=== PATIENT | female | born 1950 | race Caucasian/White ===

== ENCOUNTER 2023-09-23 14:03 | Outpatient (OUT) | payer MEDICARE, SELFPAY ==
--- NOTE | 2023-09-23 | XR_ITS ---
The [address] [address] Patient Name: LES CORTEZ MRN: [id number] date: 1950 Sex: F Assigned Patient Location: Current Patient Location: Accession/Order Number: [id number] Exam Date: 09/23/2023 14:50 Report Date: 09/25/2023 06:39 At the request of: ALO HOPPER Procedure: XR ankle LT min 3V PROCEDURE: XR ankle LT min 3V, XR foot LT min 3V HISTORY: LEFT ANKLE PAIN , left foot pain, left foot drop COMPARISON: None. FINDINGS: BONES:Small corticated ossification dorsal to the tarsal-metatarsal joints on the lateral view favoring sequela of remote injury. No acute fracture, dislocation, bone lesion. Uniform spacing of the ankle joint. SOFT TISSUES:Soft tissue swelling overlying distal dorsal foot. EFFUSION:None visible. OTHER: Negative. XR/XR ankle LT min 3V IMPRESSION: 1. No acute bone abnormality. 2. Mild flattening of plantar arch and minimal degenerative joint disease. Electronically authenticated by: TRAVON GOMEZ Date: 09/25/2023 06:39
--- NOTE | 2023-09-23 | XR_ITS ---
The [address] [address] Patient Name: LES CORTEZ MRN: [id number] date: 1950 Sex: F Assigned Patient Location: Current Patient Location: Accession/Order Number: [id number] Exam Date: 09/23/2023 14:50 Report Date: 09/25/2023 06:39 At the request of: ALO HOPPER Procedure: XR foot LT min 3V PROCEDURE: XR ankle LT min 3V, XR foot LT min 3V HISTORY: LEFT ANKLE PAIN , left foot pain, left foot drop COMPARISON: None. FINDINGS: BONES:Small corticated ossification dorsal to the tarsal-metatarsal joints on the lateral view favoring sequela of remote injury. No acute fracture, dislocation, bone lesion. Uniform spacing of the ankle joint. SOFT TISSUES:Soft tissue swelling overlying distal dorsal foot. EFFUSION:None visible. OTHER: Negative. XR/XR foot LT min 3V IMPRESSION: 1. No acute bone abnormality. 2. Mild flattening of plantar arch and minimal degenerative joint disease. Electronically authenticated by: TRAVON GOMEZ Date: 09/25/2023 06:39
== END 2023-09-23 14:04 | disposition home or self-care (01) ==
LOC: EC 14:03
PROVIDERS: Visit Provider Podiatrist Foot & Ankle Surgery
DX: M25.572 Pain in left ankle and joints of left foot (principal); M17.12 Unilateral primary osteoarthritis, left knee
CPT/HCPCS: 73610; 73630

== ENCOUNTER 2024-03-01 14:31 | Outpatient (OUT) | payer MEDICARE, SELFPAY ==
--- NOTE | 2024-03-01 | XR_ITS ---
The [address] [address] Patient Name: LES CORTEZ MRN: [id number] date: 1950 Sex: F Assigned Patient Location: Current Patient Location: Accession/Order Number: [id number] Exam Date: 03/01/2024 14:31 Report Date: 03/01/2024 15:05 At the request of: JANINE CARRERA Procedure: XR knee JENNIFER 4V EXAMINATION: XR knee JENNIFER 4V HISTORY: RIGHT KNEE PAIN COMPARISON: No relevant comparison available. FINDINGS: RIGHT FINDINGS: BONES: 5 mm bone fragment identified along the proximal, on the lateral projection suspicious for a nondisplaced fracture. No dislocation. Mild to moderate tricompartmental osteoarthropathy with joint space narrowing marginal osteophyte formation SOFT TISSUES: Negative. No visible soft tissue swelling. OTHER: Call result initiated through operations. LEFT FINDINGS: BONES: No acute fracture or dislocation. Severe tricompartmental osteoarthropathy with moderate narrowing of the medial joint space and marginal osteophyte formation. Extensive heterotopic ossification noted along the quadriceps insertion of the patella SOFT TISSUES: Negative. No visible soft tissue swelling. OTHER: Negative. XR/XR knee JENNIFER 4V IMPRESSION: RIGHT CONCLUSION: Suspected nondisplaced 5 mm fracture proximal patella LEFT CONCLUSION: Severe osteoarthritis Electronically authenticated by: CAROLYN SHERIDAN Date: 03/01/2024 15:05
--- OUTSIDE RECORDS SUMMARY | 2024-03-01 14:36 | XMS_ITS | CCD ---
Author Organization [facility] Care Team Providers Care Outpatient Surgery Rn Name Role Phone [facility] Primary Care Provider [facility] Referring Provider [phone] Self, Referral Attending Provider Unavailable [facility] Primary Care Provider Malek, Hiral Referring Provider Mast, DO Michael Attending Provider [phone] Jin, DO Rene Gomez Attending Provider [phone] [facility], Services Primary Care Provider Jin, Rene A Attending Provider Malek, DO Hiral Referring Provider Malek, Hiral Referring Unavailable Brandejahcki, Rene A Admitting Unavailable BranieckiRene A Attending Unavailable [facility], Services Primary Care Unavaila ble Malek, Hiral Referring Unavailable Braniecki, Rene A Admitting Unavailable Braniecki Rene A Attending Unavailable [facility], Services Primary Care Unavaila ble Mast, Michael Admitting Unavailable Mast, Michael Attending Unavailable [facility], Services Primary Care Unavaila ble Malek, Hiral Referring Unavailable Igor Ly Primary Care Physician Igor Ly MD Primary Care Provider CAROLYN BROWNE Attending Unavailable DANILO RICHARD Attending Unavailable DANILO RICHARD Referring Unavailable DANILO RICHARD Attending Unavailable DANILO RICHARD Attending Unavailable DANILO RICHARD Attending Unavailable CAROLYN BROWNE Attending Unavailable CAROLYN BROWNE Referring Unavailable POCCAROLYN CORONA Referring Unavailable DANILO RICHARD Referring Unavailable Igor Ly MD Primary Care Provider DO Blayne Mackenzie Admitting UnavailHIRAL Madden Referring Unavailable Blayne Mackenzie Attending Unavailable NONE, XXXX Referring Unavailable JAZZY Hurtado Maribel Admitting Unavailabl e Hurtado, Maribel Attending Unavailable Blayne Mackenzie Attending Unavailable Blayne Mackenzie Referring Unavailable Link, DO Igor Flynn Attending Unavailable KRISTAN HEWITT Attending Unavailabl e Link, DO Igor Flynn Attending Unavailable KRISTAN HEWITT Attending Unavailabl e Link, DO Igor Flynn Attending Unavailable Link, DO Igor Flynn Attending Unavailable Blayne Mackenzie Attending Unavailable Blayne Mackenzie Referring Unavailable Hurtado, Maribel Admitting Unavailable Hurtado, Maribel Attending Unavailable Donovan Ward Attending Unavailable Donovan Ward Attending Unavailable Link, DO Igor Flynn Attending Unavailable Link, DO Igor C Attending Unavailable Link, DO Igor C Attending Unavailable Link, DO Igor C Attending Unavailable Link, DO Igor C Attending Unavailable Link, DO Igor C Attending Unavailable Link, DO Igor C Attending Unavailable Link, DO Igor C Attending Unavailable Link, DO Igor C Attending Unavailable Hurtado, Maribel Admitting Unavailable Hurtado, Maribel Attending Unavailable Link, DO Igor Flynn Referring Unavailable Blayne Mackenzie Admitting Unavailable Blayne Mackenzie Attending Unavailable NONE, XXXX Referring Unavailable Link, DO Igor C Referring Unavailable Hurtado, Maribel Admitting Unavailable Hurtado, Amribel Attending Unavailable Allergies Allergy Classification Reported Allergen(s) Allergy Type Date of Onset Reaction(s) Facility (19 sources) pregabalin; Translations: [pregabalin] Drug Allergy swelling [facility] (15 sources) Anabolic steroid (substance); Translations: [anabolic steroids] Drug intolerance [facility] [place] Comment on above: Patient has Occular HTN and was advised by provider to not take unless no other options (11 sources) Corticosteroids and derivatives Drug Intolerance 07-13-19 23 [facility] (1 source) anabolic steroids; Translations: [anabolic steroids] Propensity to adverse reactions (disorder) [facility] Repository Medications Current Medications Medication Drug Class(es) Dates Sig (Normalized) Sig (Original) Tylenol (5 sources) Start: 12-19-2023 Tylenol PRN as needed for pain, Refills(s) 0 Start Date: 12/19/23 Status: Ordered acetaminophen 325 mg / HYDROcodone bitartrate 5 mg oral tablet (2 sources) Opioid Agonist Start: 11-20-2023 End: 11-23-2023 [place] 325 mg-5 mg oral tablet 1 tab(s), Oral, q6hr for pain for 3 day(s), 12 tab(s), Refill(s) 0, [facility]/pharmacy #[id number], 167.6, cm, 11/20/23 13:19:00 EDT, Height/Length Dosing, 107.4, kg, 11/20/23 13:19:00 EDT, Weight Dosing Start Date: 11/20/23 Stop Date: 11/23/23 Status: Ordered acetaminophen 325 mg / oxyCODONE hydrochloride 5 mg oral tablet (7 sources) Opioid Agonist Start: 01-02-2024 acetaminophen-oxyc odone 325 mg-5 mg Tab 1 tab(s), Oral, BID for pain, 60 tab(s), [facility](s) 0, [id number], cm, 12/19/23 11:10:00 EDT, Height/Length Dosing, 105, kg, 12/19/23 11:10:00 EDT, Weight Dosing Start Date: 01/02/24 Status: Ordered Start: 12-08-2023 acetaminophen- oxycodone 325 mg-5 mg Tab 1 tab(s), Oral, BID for pain, 60 tab(s), [facility]ill(s) 0, [id number], cm, 12/08/23 11:52:00 EDT, Height/Length Dosing, 108.6, kg, 12/08/23 11:52:00 EDT, Weight Dosing Start Date: 12/08/23 Status: Ordered Start: 11-24-2023 acetaminophen- oxycodone 325 mg-5 mg Tab 1 tab(s), Oral, BID for pain, 28 tab(s), Refill(s) 0, [facility]/pharmacy #[id number], 168, cm, 11/24/23 14:05:00 EDT, Height/Length Dosing, 107.6, kg, 11/24/23 14:05:00 EDT, Weight Dosing Start Date: 11/24/23 Status: Ordered atorvastatin 40 mg oral tablet (20 sources) HMG-CoA Reductase Inhibitor Start: 10-07-2014 take 1 tablet by mouth once daily atorvastatin 40 mg Tab 40 mg = 1 tab(s), Oral, Daily, # 90 tab(s), Refills(s) 3, Pharmacy: [facility], 168, cm, 05/27/23 11:56:00 EDT, Height/Length Dosing, 108.6, kg, 05/27/23 11:56:00 EDT, Weight Dosing Start Date: 05/27/23 Status: Ordered baclofen 5 mg oral tablet (6 sources) gamma-Aminobutyri c Acid-ergic Agonist Start: 05-05-2023 take 1 tablet by mouth three times daily as needed for pain baclofen 5 mg oral tablet 5 mg = 1 tab(s), Oral, TID, PRN Pain, # 30 tab(s), Refills(s) 0, [id number] 168, cm, 05/05/23 12:58:00 EDT, Height/Length Dosing, 108.6, kg, 04/02/23 10:30:00 EST, Weight Dosing Start Date: 05/05/23 Status: Ordered Cholecalciferol (11 sources) Vitamin D Cholecalciferol (D3 ADULT PO) Take by mouth Active diclofenac potassium 50 mg oral tablet (7 sources) Nonsteroidal Anti-inflammatory Drug Start: 12-08-2023 take 1 tablet by mouth twice daily as needed for arthritis diclofenac potassium 50 mg oral tablet 50 mg = 1 tab(s), Oral, BID, PRN for arthritis, Do not take with other anti-inflammatories , # 60 tab(s), Refills(s) 2, [id number] 168, cm, 12/08/23 11:52:00 EDT, Height/Length Dosing, 108.6, kg, 12/08/23 11:52:00 EDT, Weight Dosing Start Date: 12/08/23 Status: Ordered dorzolamide 20 mg/ml / timolol 5 mg/ml ophthalmic solution (20 sources) Carbonic Anhydrase Inhibitor, beta-Adrenergic Tressa Start: 04-02-2023 dorzolamide-timolol Opth 2%-0.5% Zeynep 1 drop(s), Eye-Both, Refill(s) 0 Start Date: 04/02/23 Status: Ordered Start: 07-02-2022 End: 11-18-2023 take 1 drop(s) into the eye(s) in the morning dorzolamide-timolol (Cosopt) 22.3-6.8 MG/ML ophthalmic solution Administer 1 drop into both eyes in the morning and 1 drop before bedtime. 07/02/2022 11/18/2023 Discontinued (Med list cleanup) furosemide 20 mg oral tablet (1 source) Loop Diuretic Start: 07-02-2023 take 1 tablet by mouth once daily Lasix 20 mg Tab 20 mg = 1 tab(s), Oral, Daily, i tab po qd x 5 days, # 5 tab(s), Refills(s) 0, [id number] 168, cm, 07/02/23 8:22:00 EDT, Height/Length Dosing, 109.4, kg, 07/02/23 8:40:00 EDT, Weight Dosing Start Date: 07/02/23 Status: Ordered gabapentin 300 mg oral capsule (20 sources) Anti-epileptic Agent Start: 02-24-2024 take 2 capsules by mouth once daily at bedtime gabapentin 300 mg Cap 600 mg = 2 cap(s), Oral, Once a day (at bedtime), # 180 EA, Refills(s) 0, [id number] 168, cm, 02/24/24 8:35:00 EST, Height/Length Dosing, 107, kg, 02/24/24 8:35:00 EST, Weight Dosing Start Date: 02/24/24 Status: Ordered Start: 06-24-2023 take 2 capsules by m outh once daily at bedtime gabapentin 300 mg Cap 600 mg = 2 cap(s), Oral, Once a day (at bedtime), # 180 EA, Refills(s) 3, Pharmacy: [facility], 168, cm, 05/27/23 11:56:00 EDT, Height/Length Dosing, 108.6, kg, 05/27/23 11:56:00 EDT, Weight Dosing Start Date: 06/24/23 Status: Ordered Start: 06-24-2023 gabapentin (Ne urontin) 300 MG capsule Take 300 mg by mouth 06/24/2023 Active Start: 06-24-2023 take 1 capsule by mo uth twice daily gabapentin 300 mg Cap 300 mg = 1 cap(s), Oral, BID, # 180 EA, Refills(s) 3, Pharmacy: [facility], 168, cm, 05/27/23 11:56:00 EDT, Height/Length Dosing, 108.6, kg, 05/27/23 11:56:00 EDT, Weight Dosing Start Date: 06/24/23 Status: Ordered Start: 04-23-2023 take 1 capsule by mo [facility] three times daily gabapentin 300 mg Cap 300 mg = 1 cap(s), Oral, TID, # 90 cap(s), Refills(s) 1, Pharmacy: [facility], 168, cm, 04/02/23 10:30:00 EST, Height/Length Dosing, 108.6, kg, 04/02/23 10:30:00 EST, Weight Dosing Start Date: 04/23/23 Status: Ordered Start: 04-23-2023 take 1 capsule by [facility] once daily at bedtime gabapentin 300 mg Cap 300 mg = 1 cap(s), Oral, Once a day (at bedtime), # 90 cap(s), Refills(s) 1, Pharmacy: [facility], 168, cm, 04/02/23 10:30:00 EST, Height/Length Dosing, 108.6, kg, 04/02/23 10:30:00 EST, Weight Dosing Start Date: 04/23/23 Status: Ordered Start: 04-02-2023 End: 05-02-2023 take 3 tablets by mouth at bedtime gabapentin 100 mg Cap 300 mg = 3 cap(s), Oral, Bedtime, take 1 tablet for the first 3 days, then take 2 tablets at night for 3 more days, then take 3 tablets at bedtime ongoing., X 30 day(s), # 90 cap(s), Refills(s) 0, Pharmacy: [facility], 168, cm, 04/02/23 10:30:00 EST, Height/Length Dosing, 108.6, kg, 04/02/23 10:30:00 EST, Weight Dosing Start Date: 04/02/23 Stop Date: 05/02/23 Status: Ordered hydroCHLOROthiazide 25 mg / lisinopril 20 mg oral tablet (20 sources) Thiazide Diuretic, Angiotensin Converting Enzyme Inhibitor Start: 05-27-2023 take 2 tablets by mouth once daily hydrochlorothiazide-lisinopril 25 mg-20 mg Tab 2 tab(s), Oral, Daily, 180 tab(s), Refill(s) 3, [facility], 168, cm, 05/27/23 11:56:00 EDT, Height/Length Dosing, 108.6, kg, 05/27/23 11:56:00 EDT, Weight Dosing Start Date: 05/27/23 Status: Ordered Start: 04-02-2023 take 2 tablets by mouth once daily hydrochlorothiazide-lisinopril 25 mg-20 mg Tab 2 tab(s), Oral, Daily, Refill(s) 0 Start Date: 04/02/23 Status: Ordered take 1 tablet by david th in the morning lisinopril-hydroCHLOROthiazide 20-12.5 M G tablet Take 1 tablet by mouth in the morning. Active latanoprost (20 sources) Prostaglandin Analog Start: 04-02-[address] ophthalmic Eye-Both, Refill(s) 0 Start Date: 04/02/23 Status: Ordered latanoprost (Xal atan) 0.005 % ophthalmic solution 1 (one) time each day at the same time Active meloxicam 15 mg oral tablet (20 sources) Nonsteroidal Anti-inflammatory Drug Start: 02-24-2024 take 1 tablet by mouth once daily meloxicam 15 mg Tab 15 mg = 1 tab(s), Oral, Daily, Refills(s) 0 Start Date: 02/24/24 Status: Ordered Start: 05-27-2023 meloxicam (Mob ic) 15 MG tablet Take 15 mg by mouth 05/27/2023 Active Start: 05-12-2023 take 1 tablet by david th once daily meloxicam 15 mg Tab 15 mg = 1 tab(s), Oral, Daily, # 30 tab(s), Refills(s) 1, Pharmacy: [facility]/pharmacy #[id number], 168, cm, 05/12/23 8:10:00 EDT, Height/Length Dosing, 110.5, kg, 05/12/23 8:10:00 EDT, Weight Dosing Start Date: 05/12/23 Status: Ordered metoprolol tartrate 25 mg oral tablet (20 sources) beta-Adrenergic Tressa Start: 05-27-2023 take 1 tablet by mouth twice daily Metoprolol tartrate 25 mg Tab 25 mg = 1 tab(s), Oral, BID, # 180 tab(s), Refills(s) 3, Pharmacy: [facility], 168, cm, 05/27/23 11:56:00 EDT, Height/Length Dosing, 108.6, kg, 05/27/23 11:56:00 EDT, Weight Dosing Start Date: 05/27/23 Status: Ordered Start: 10-07-2014 take 1 tablet by david th once daily Metoprolol tartrate 25 mg Tab 25 mg = 1 tab(s), Oral, Daily, # 30 tab(s), Refills(s) 0, High blood pressure Start Date: 10/07/14 Status: Ordered Start: 10-07-2014 take 1 tablet by david th twice daily Metoprolol tartrate 25 mg Tab 25 mg = 1 tab(s), Oral, BID, # 30 tab(s), Refills(s) 0, High blood pressure Start Date: 10/07/14 Status: Ordered naproxen sodium 220 mg oral tablet (20 sources) Nonsteroidal Anti-inflammatory Drug Start: 11-21-2023 take 220 mg by mouth once Aleve 220 mg, Oral, Once, Refills(s) 0 Start Date: 11/21/23 Status: Ordered Start: 02-09-2017 naproxen (Napr osyn) 500 MG tablet 01/01/2023 Active PTTD ankle brace (19 sources) Start: 04-02-2023 PTTD ankle bra ce PTTD ankle brace, See Instructions, 1 EA, 0, one brace, Supply, 168, cm, 04/02/23 10:30:00 EST, Height/Length Dosing, 108.6, kg, 04/02/23 10:30:00 EST, Weight Dosing Start Date: 04/02/23 Status: Ordered Super B Complex oral tablet (18 sources) Start: 04-02-2023 Super B Comple x oral tablet Refill(s) 0, Oral, 0 Refill(s) Start Date: 04/02/23 Status: Ordered Start: 04-02-2023 Super B Comple x oral tablet Refill(s) 0 Start Date: 04/02/23 Status: Ordered 12 hr timolol 5 mg/ml ophthalmic solution (12 sources) beta-Adrenergic Tressa Start: 11-21-2023 timolo l Opth 0.5% Zeynep 15 mL 1 drop(s), BID, Refill(s) 0 Start Date: 11/21/23 Status: Ordered timolol (Timopti c) 0.5 % ophthalmic solution 1 (one) time each day at the same time Active timolol Opth 0.5% Zeynep 15 mL (6 sources) Start: 11-21-2023 timolol Opth 0 .5% Zeynep 15 mL 1 drop(s), BID, Refill(s) 0 Start Date: 11/21/23 Status: Ordered traMADol hydrochloride 50 mg oral tablet (20 sources) Opioid Agonist Start: 02-02-2024 take 1 tablet by mouth every twelve hours as needed for pain traMADOL 50 mg Tab 50 mg = 1 tab(s), Oral, q12hr, PRN for pain, # 60 tab(s), Refills(s) 0, Pharmacy: [facility]/pharmacy #[id number], 168, cm, 02/02/24 13:57:00 EST, Height/Length Dosing, 109.3, kg, 02/02/24 13:57:00 EST, Weight Dosing Start Date: 02/02/24 Status: Ordered Start: 05-27-2023 take 1 tablet by david th once daily as needed for pain traMADOL 50 mg Tab 50 mg = 1 tab(s), Oral, Daily, PRN for pain, At bedtime, # 90 tab(s), Refills(s) 0, Pharmacy: [facility]/pharmacy #[id number], 168, cm, 11/13/23 10:07:00 EDT, Height/Length Dosing, 107.4, kg, 11/13/23 10:07:00 EDT, Weight Dosing Start Date: 11/13/23 Status: Ordered Start: 05-08-2023 End: 05-11-2023 take 1 tablet by mouth every six hours Ultram 50 mg Tab 50 mg = 1 tab(s), Oral, q6hr, X 3 day(s), # 12 tab(s), Refills(s) 0, Pharmacy: [facility]/pharmacy #[id number], 168, cm, 05/08/23 13:35:00 EDT, Height/Length Dosing, 108.6, kg, 05/08/23 13:35:00 EDT, Weight Dosing Start Date: 05/08/23 Stop Date: 05/11/23 Status: Ordered traMADol (Ultram ) 50 MG tablet Take by mouth Active Vitamin D3 2000 intl units (19 sources) Start: 10-07-2014 Vitamin D3 200 0 intl units 2,000 International_Unit, Oral, Daily, Refills(s) 0, Prophylaxis Start Date: 10/07/14 Status: Ordered Completed/Discontinued Medications Medication Drug Class(es) Dates Sig (Normalized) Sig (Original) Handicap Placard (12 sources) Start: Handicap Placard Handicap Placard, See Instructions, 1 EA, 0, Expires 08/2028, Supply Start Date: 08/19/23 Status: Ordered 1 ml methylPREDNISolone acetate 40 mg/ml injection (8 sources) Corticosteroid Start: End: methylPREDNISolone acetate (DEPO-Medrol) injection 40 mg Start: 10-21-2023 End: 10-21-2023 40 mg, Intra-articular, Once PRN Procedure, Starting on Fri10/21/23 at 0947, For 1 dose Start: 10-14-2023 End: 10-14-2023 methylPREDNISolone acetate ( DEPO-Medrol) injection 40 mg Start: 10-14-2023 End: 10-14-2023 40 mg, Intra-articular, Once PRN Procedure, Starting on Fri10/14/23 at 1254, For 1 dose vitamin b12 0.1 mg oral tablet (10 sources) Vitamin B12 End: 11-18-2023 take 1 tablet by mouth once daily cyanocobalamin (Vitamin B-12) 100 MCG tablet Take 100 mcg by mouth Daily 11/18/2023 Discontinued (Med list cleanup) Problems Active Problems Problem Classification Problem Date Documented Date Episodic/Chronic Disorders of lipid metabolism (19 sources) Other hyperlipidemia; Translations: [Hyperlipidemia] Onset: 08-22-2022 Chronic Essential hypertension (20 sources) Essential (primary) hypertension; Translations: [Hypertensive disorder] Onset: 08-22-2022 10-11-2015 Chronic Heart valve disorders (17 sources) Cardiac murmur, unspecified; Translations: [Heart murmur] Onset: 08-22-2022 Episodic Osteoarthritis (20 sources) Localized, primary osteoarthritis of the shoulder region; Translations: [Primary osteoarthritis, right shoulder] Onset: 05-27-2023 Chronic Other non-traumatic joint disorders (6 sources) Pain in right knee; Translations: [Pain in joint, lower leg] Onset: 11-19-2022 11-18-2023 Episodic Other non-traumatic joint disorders (6 sources) Pain in left knee; Translations: [Pain in joint, lower leg] Onset: 11-20-2023 11-18-2023 Episodic Other nutritional; endocrine; and metabolic disorders (1 source) Body mass index (BMI) 39.0-39.9, adult; Translations: [Body mass index [BMI] 39.0-39.9, adult] Onset: 08-22-2022 Chronic Other nutritional; endocrine; and metabolic disorders (9 sources) Obese class II; Translations: [Body mass index (BMI) 39.0-39.9, adult] Onset: 05-12-2023 Chronic Other nutritional; endocrine; and metabolic disorders (4 sources) Obesity; Translations: [Obesity, unspecified] Onset: 07-02-2023 Chronic Other nutritional; endocrine; and metabolic disorders (14 sources) Morbid obesity; Translations: [Morbid (severe) obesity due to excess calories] Onset: 11-12-2023 Chronic Comment on above: added per 11/12/2023 query response. Other screening for suspected conditions (not mental disorders or infectious disease) (1 source) Encounter for screening mammogram for malignant neoplasm of breast; Translations: [Screening for malignant neoplasm done] Onset: 02-03-2024 Episodic Residual codes; unclassified (1 source) Asymptomatic menopausal state; Translations: [Asymptomatic menopausal state] Onset: 11-19-2022 Episodic Residual codes; unclassified (7 sources) Patient encounter status; Translations: [Other specified health status] Onset: 05-12-2023 Episodic Residual codes; unclassified (1 source) Localized edema; Translations: [Localized edema] Onset: 07-02-2023 Episodic Residual codes; unclassified (13 sources) Edema of left lower limb 07-02-2023 Episodic Spondylosis; intervertebral disc disorders; other back problems (16 sources) Low back pain; Translations: [Low back pain, unspecified] Onset: 05-12-2023 Episodic Sprains and strains (1 source) Lower back injury; Translations: [Strain of muscle, fascia and tendon of lower back, initial encounter] Onset: 05-08-2023 Episodic Unclassified (1 source) Encounter for screening mammogram for malignant neoplasm of breast; Translations: [Encounter for screening mammogram for malignant neoplasm of breast] Onset: 02-03-2023 Unclassified (3 sources) Long-term current use of opiate analgesic drug Onset: 02-02-2024 02-02-2024 Comment on above: Added secondary to c urrent Opioid Treatment Agreement Past or Other Problems Problem Classification Problem Date Documented Da te Episodic/Chronic Immunizations and screening for infectious disease (1 source) Encounter for screening for other viral diseases; Translations: [Encounter for screening for other viral diseases] Onset: 08-22-2022 Episodic Results Test Name Value Interpretation Reference Range Facility Ambulatory Visit Summaryon 1 04-08-2023 Ambulatory Visit Summary Ambulatory Visi t Summary JESIKA CORTEZ Stefan :1950 Visit Date:02/03/2024 Ambulatory Visit Instructions Your Diagnosis Encounter for annual wellness visit (AWV) in Medicare patient Screening mammogram, encounter for Hyperlipidemia Essential hypertension Bilateral primary osteoarthritis of knee Adult BMI 38.0-38.9 kg/sq m Obesity due to excess calories Your Care Team Attending Physician - Igor Ly DO Primary Care Physician - Igor Ly DO This Is Your Medications List Misc Prescription (Handicap Placard) Misc Prescription (PTTD ankle brace) acetaminophen (Tylenol) acetaminophen-oxycodo ne (acetaminophen-oxycod one 325 mg-5 mg Tab) atorvastatin (atorvastatin 40 mg Tab) cholecalciferol (Vitamin D3 2000 intl units) diclofenac (diclofenac potassium 50 mg oral tablet) gabapentin (gabapentin 300 mg Cap) hydrochlorothiazide-l isinopril (hydrochlorothiazide- lisinopril 25 mg-20 mg Tab) latanoprost ophthalmic metoprolol (Metoprolol tartrate 25 mg Tab) multivitamin (Super B Complex oral tablet) naproxen (Aleve) timolol ophthalmic (timolol Opth 0.5% Zeynep 15 mL) tramadol (traMADOL 50 mg Tab) Procedures Performed Nerve block (12/16/2023), Colonoscopy (09/20/2020), back laminectomy, cataract surgery, hysterectomy, lumbar fusion. Discharge Vitals Heart Rate (Peripheral) 56 Respiratory Rate 16 Blood Pressure 122/72 Height 168 cm Height 66 in Weight 109 kg Weight 240.304 lb BMI 38.62 What to do next Scheduled Follow-Up Appointments Friday 8:00 AM EST With: Blayne Mackenzie DO [facility] Friday 3:40 PM EST With: Igor Ly DO Where: [place] [address] [place] [address]- Friday 1:00 PM EST With: Where: [address] [place] [address]- You Need to Complete the Following MA Mamm Screen w/CAD if perf and 3D Charles, 02/03/24, Routine, Order for Future Visit, Transport Mode: Ambulatory, Reason: Screening, No, Screening mammogram, encounter for, [place] [id number] pecialty, Required & Missing, [facility] Medications What How Much When Why Instructions Unchanged acetaminophen (Tylenol) As needed for as needed for pain Unchanged acetaminophen-oxycodo ne (acetaminophen-oxycod one 325 mg-5 mg Tab) 1 Tablets By Mouth 2 times a day as needed for for pain Bilateral primary osteoarthritis of knee Unchanged atorvastatin (atorvastatin 40 mg Tab) 1 Tablets By Mouth Every day Unchanged cholecalciferol (Vitamin D3 2000 intl units) 2,000 International unit By Mouth Every day Unchanged diclofenac (diclofenac potassium 50 mg oral tablet) 1 Tablets By Mouth 2 times a day as needed for for arthritis Do not take with other anti-inflammatories Unchanged gabapentin (gabapentin 300 mg Cap) 2 Capsules By Mouth Once a day (at bedtime) Chronic pain Unchanged hydrochlorothiazide-l isinopril (hydrochlorothiazide- lisinopril 25 mg-20 mg Tab) 2 Tablets By Mouth Every day Unchanged latanoprost ophthalmic Both eyes Unchanged metoprolol (Metoprolol tartrate 25 mg Tab) 1 Tablets By Mouth 2 times a day Unchanged Misc Prescription (Handicap Placard) See instructions Expires 2028 Unchanged Misc Prescription (PTTD ankle brace) See instructions one brace Unchanged multivitamin (Super B Complex oral tablet) Oral, 0 Refill(s) Unchanged naproxen (Aleve) 220 Milligram By Mouth Once Unchanged timolol ophthalmic (timolol Opth 0.5% Zeynep 15 mL) 1 Drops 2 times a day Unchanged tramadol (traMADOL 50 mg Tab) 1 Tablets By Mouth Every 12 hours as needed for for pain Allergies Lyrica (swelling) anabolic steroids Problems Ongoing - Any problem that you are currently receiving treatment for. Bilateral primary osteoarthritis of knee Dorsalgia of lumbar region Edema of left lower extremity Essential hypertension Heart murmur Hyperlipidemia Long-term current use of opiate analgesic drug Morbid obesity Osteoarthritis of shoulders, bilateral Patient Survey You may receive a survey via text or e-mail asking about your office visit. Please share your experience with us by completing your survey. We appreciate your feedback and thank you for choosing us for your care. Education Materials Preventive Care 65 Years and Older, Female Preventive care refers to lifestyle choices and visits with your health care provider that can promote health and wellness. Preventive care visits are also called wellness exams. What can I expect for my preventive care visit? Counseling Your health care provider may ask you questions about your: ??? Medical history, including: ? Past medical problems. ? Family medical history. ? and menstrual history. ? History of falls. ??? Current health, including: ? Memory and ability to understand ( (more content not included)... Normal [facility] Family Medicine Office/Clini c Noteon 02-06-2024 Family Medicine Office/Clinic Note Family Medicine Office/Clinic Note Chief Complaint Subsequent AWV History of Present Illness I was in the office and available for consultation and to provide direct supervision at the time of this visit. I have provided supervision of the care team and have reviewed this chart and office note and agree with the plan of care. Review of Systems PHQ Score Initial Depression Screen Score: 0 SCORE Physical Exam Vitals & Measurements HR: 56(Peripheral) RR: 16 BP: 122/72 SpO2: 98% HT: 168 cm HT: 66 in WT: 109 kg WT: 240.304 lb BMI: 38.62 Assessment/Plan 1. Encounter for annual wellness visit (AWV) in Medicare patient (Z00.00: Encounter for general adult medical examination without abnormal findings) The patient was given a customized and personalized print out of all the current AHRQ USPSTF???s recommendations for preventative services and all current CDC recommended immunizations, relevant risk recommendations and the following patient brochures were given. Reviewed What can I expect during my Medicare preventative care visit CDC-Falls Prevention and home safety screening reviewed. Patient denies any falls in last 12 months, voices no worry about falling, exhibits no problems with sitting and standing. Pt voices understanding with keeping walk way area free of clutter to prevent tripping and/or falling. [place] Advance Directives reviewed, declined paperwork. Patient denies any problems with ADL???s and Instrumental ADL???s. Cognitive screening completed with memory and clock face drawing. No decline noted. Immunization Record reviewed with the patient. Discussed Shingrix vaccine with educational handout and availability. COVID vaccines have been declined, immunization record is up to date. Allergies and medications reviewed and up to date. Patient denies concerns with taking medication as prescribed, reviewed OTC medications with patient with medication list up to date. Blood tests were reviewed: Discussed what tests need to be updated. Colonoscopy up to date, due for repeat PRN. DEXA scan is up to date and Mammogram was ordered. Reviewed concerns with bladder control over past 6 months with no concerns. Reviewed pain symptoms with patient: 05/27 bilat. knee pain. Follows with pain management. Reviewed all outside providers that patient follows. Last visit summary notes available in chart and/or have been requested. Follow up scheduled 03/02/2024 AWV has been scheduled 02/04/2025 Medicare provides yearly screening for alcohol and depression concerns. This is completed during our Medicare wellness visit for those who do not have a current diagnosis of depression or concerns with alcohol use. I spent a total of 10 minutes on this date of service which included preparing to see the patient, face to face patient care, completing clinical documentation, obtaining and/or reviewing separately obtained history, counseling and educating the patient with handouts. Explanations were provided with reviewing questionnaires. AUDIT risk assessment screening completed, risk score (0) with patient denying concerns with use. Completed PHQ-2 risk assessment for depression with risk score (0), negative findings. Patient has been reminded to notify the provider if there would be a change or concerns with symptoms with fear, unable to sleep, worrying too much or feeling down and/or sad with lost of interest with daily activities. Will continue to monitor with screening yearly during Medicare wellness visits. 2. Screening mammogram, encounter for (Z12.31: Encounter for screening mammogram for malignant neoplasm of breast) Recommended mammogram screening discussed with patient during today's Medicare Wellness visit. Patient reminded with the importance of continued Breast Self-Awareness at home. Easy to read demonstration on how to perform a self breast exam: What to look for and feel for was reviewed and provided to patient. Mammogram ordered. Pt has been advised no deodorant, sprays or lotions. 3. Hyperlipidemia (E78.5: Hyperlipidemia, unspecified) The role of Statins extends beyond lowering blood levels of cholesterol and LDL and CKD. Statins can also reduce inflammation which increases risk factors for heart disease due to plaque buildup. Reviewed symptoms to monitor for and report to PCP ie: cramping, muscle pain, muscle weakness or diarrhea. Patient currently taking Atorvastatin 40 mg daily, reminded importance for a proper diet. Handout provided for patient to review and if need make changes. 4. Essential hypertension (I10: Essential (primary) hypertension) Patient is taking Metoprolol and HCTZ-Lisinopril daily as directed. Does monitor BP pressure at home. Reviewed with pt BP goal to be <140/90. Reviewed different factors that can alter blood pressure readings. Education handout provided with s/s to monitor for and report to provider. Patient is encouraged to increase portions of fruit, vegetables, fiber and increase exercise as much as tolerable. Reviewed im (more content not included)... Normal [facility] Comment on above: Result Comment: Elec tronically Signed By: Igor Ly DO\.br\Date and Time Signed: 02/06/24 10:04 EST\.br\Electronically Co-Signed By: Joseph Loja LPN\.br\Date and Time Co-Signed: 02/03/24 16:14 EST Ambulatory Visit Summaryon 1 04-04-2023 Ambulatory Visit Summary Ambulatory Visi t Summary JESIKA CORTEZ Stefan :1950 Visit Date:02/02/2024 Ambulatory Visit Instructions Your Diagnosis Bilateral primary osteoarthritis of knee Essential hypertension Morbid obesity BMI 38.0-38.9,adult Non-smoker Your Care Team Attending Physician - Igor Ly DO Primary Care Physician - Igor Ly DO This Is Your Medications List Misc Prescription (Handicap Placard) Misc Prescription (PTTD ankle brace) acetaminophen (Tylenol) acetaminophen-oxycodo ne (acetaminophen-oxycod one 325 mg-5 mg Tab) atorvastatin (atorvastatin 40 mg Tab) cholecalciferol (Vitamin D3 2000 intl units) diclofenac (diclofenac potassium 50 mg oral tablet) gabapentin (gabapentin 300 mg Cap) hydrochlorothiazide-l isinopril (hydrochlorothiazide- lisinopril 25 mg-20 mg Tab) latanoprost ophthalmic metoprolol (Metoprolol tartrate 25 mg Tab) multivitamin (Super B Complex oral tablet) naproxen (Aleve) timolol ophthalmic (timolol Opth 0.5% Zeynep 15 mL) tramadol (traMADOL 50 mg Tab) Procedures Performed Nerve block (12/16/2023), Colonoscopy (09/20/2020), back laminectomy, cataract surgery, hysterectomy, lumbar fusion. Discharge Vitals Heart Rate (Peripheral) 61 Blood Pressure 119/74 Height 168 cm Height 66 in Weight 109.3 kg Weight 240.965 lb BMI 38.73 What to do next Scheduled Follow-Up Appointments Friday 1:00 PM EST With: Where: [facility] [address] [place] [address]- Friday 8:00 AM EST With: Blayne Mackenzie DO Where: [facility] Friday 3:40 PM EST With: Igor Ly DO Where: [address] [address]- You Need to Schedule the Following Appointments Follow Up with Igor Ly DO, FAM When: Within 4 weeks Comments: 4 WEEKS FOLLOWUP Where: [address] [address]- Medications What How Much When Why Instructions New tramadol (traMADOL 50 mg Tab) 1 Tablets By Mouth Every 12 hours as needed for for pain Pickup at [facility]/pharmacy #[id number] Unchanged acetaminophen (Tylenol) As needed for as needed for pain Unchanged acetaminophen-oxycodo ne (acetaminophen-oxycod one 325 mg-5 mg Tab) 1 Tablets By Mouth 2 times a day as needed for for pain Bilateral primary osteoarthritis of knee Unchanged atorvastatin (atorvastatin 40 mg Tab) 1 Tablets By Mouth Every day Unchanged cholecalciferol (Vitamin D3 2000 intl units) 2,000 International unit By Mouth Every day Unchanged diclofenac (diclofenac potassium 50 mg oral tablet) 1 Tablets By Mouth 2 times a day as needed for for arthritis Do not take with other anti-inflammatories Unchanged gabapentin (gabapentin 300 mg Cap) 2 Capsules By Mouth Once a day (at bedtime) Chronic pain Unchanged hydrochlorothiazide-l isinopril (hydrochlorothiazide- lisinopril 25 mg-20 mg Tab) 2 Tablets By Mouth Every day Unchanged latanoprost ophthalmic Both eyes Unchanged metoprolol (Metoprolol tartrate 25 mg Tab) 1 Tablets By Mouth 2 times a day Unchanged Misc Prescription (Handicap Placard) See instructions Expires 2028 Unchanged Misc Prescription (PTTD ankle brace) See instructions one brace Unchanged multivitamin (Super B Complex oral tablet) Oral, 0 Refill(s) Unchanged naproxen (Aleve) 220 Milligram By Mouth Once Unchanged timolol ophthalmic (timolol Opth 0.5% Zeynep 15 mL) 1 Drops 2 times a day Pharmacy Information [facility]/pharmacy #[id number]: [address] [place], [place] [phone] Medications and Immunizations Administered Not Given influenza virus vaccine, inactivated, Postpone due to refusal Allergies Lyrica (swelling) anabolic steroids Problems Ongoing - Any problem that you are currently receiving treatment for. Bilateral primary osteoarthritis of knee Dorsalgia of lumbar region Edema of left lower extremity Essential hypertension Heart murmur Hyperlipidemia Long-term current use of opiate analgesic drug Morbid obesity Osteoarthritis of shoulders, bilateral Patient Survey You may receive a survey via text or e-mail asking about your office visit. Please share your experience with us by completing your survey. We appreciate your feedback and thank you for choosing us for your care. Lucía Godfrey [facility] Family Medicine Office/Clini c Noteon 02-02-2024 Family Medicine Office/Clinic Note Family Medicine Office/Clinic Note Chief Complaint Chronic Condition follow up HPI Staff Patient here for Chronic Condition f/u Patient is here for follow up on hypertension. How often are you checking your blood pressure? Doesn't check BP at home Do you have any of the following symptoms? Chest Pain? no Palpitations? no ADKINS/SOB? no Headache? no Peripheral Edema? yes left leg Light Headiness? no Labs: due Bilateral primary osteoarthritis of knee: - [place] [facility]. Last visit 12/18. Next visit 02/24/24. Bilateral knee genicular nerve block completed 12/16/23 and 01/26/24. UDS: 11/13/23 Med A11/13/23 - Refills: Diclofenac (patient would like to have sent to [facility]), she would also like to discuss Gabapentin dosage [place]: 09/20/20, repeat in 10 years Dexa: per pt 2022, [facility] [place]: 02/13/21 AMW: Needs to reschedule Flu:declines History of Present Illness Patient presents today for 3 month followup. - Patient on tramadol chronically for body pain, maxed out on meloxicam, changed on Meloxicam to Diclofenac - Referred to pain management by orthopedics, trying to avoid having joint replacement surgery - Bilateral knee pain from osteoarthritis - Trialed 2 weeks of BID 5-325mg Percocet, reducing back to tramadol Today, patient states that she is doing okay. She states that the meds are doing okay. She states that the diclofenac is helping more than meloxicam at this time. Review of Systems PHQ Score Initial Depression Screen Score: 0 SCORE ROS - Provider Constitutional: no fever, no chills Skin: no rash, no lesions ENMT: no ear pain, no sore throat, no congestion, no hoarseness. Respiratory: no shortness of breath, no cough, no wheezing. Cardiovascular: no chest pain, no palpitations, no edema. Gastrointestinal: no nausea, no vomiting, no diarrhea, Musculoskeletal: yes back pain, no trauma, yes arthritis pain Neurologic: no headache, no dizziness, no numbness, no weakness. Psychiatric: no sleeping problems, no irritability, no mood swings/depression. Physical Exam Vitals & Measurements HR: 61(Peripheral) BP: 119/74 SpO2: 96% HT: 66 in HT: 168 cm WT: 109.3 kg WT: 240.965 lb BMI: 38.73 General: Well developed, well nourished, in no acute distress Head: Normocephalic/atrauma tic Eyes: Pupils equal, round, and reactive to light. Sclerae normal, and extraocular movements intact Lungs: Normal respiratory effort and clear to auscultation Cardio: Regular rate and rhythm, CAMILO and normal S2, no rub Musculoskeletal: No deformity or scoliosis noted. Normal range of motion. Joints normal. No erythema, edema, effusion, or ecchymosis, bilateral knee crepitance with joint motion Extremity: No clubbing, cyanosis, edema, or deformity, with normal ROM in both upper and lower bilateral extremities Neurologic: Grossly normal Skin: No rash, petechiae, suspicious lesions Mental Status: Alert and oriented x3. Normal mood and affect Assessment/Plan 1. Bilateral primary osteoarthritis of knee (M17.0: Bilateral primary osteoarthritis of knee) Discussed reduction back to Tramadol. OARRS reviewed, no conflicts noted today. Continue with Diclofenac. She is 2. Essential hypertension (I10: Essential (primary) hypertension) Stable on intake, no changes at this time. Continue current medication. Recheck at next visit. 3. Morbid obesity (E66.01: Morbid (severe) obesity due to excess calories) The standard range for ages 18 and older is >=18.5 and < 25 kg/m2. Your BMI today was above this range, this falls in the overweight to obese category and there are medical benefits to weight loss. We can offer counselling, referral, and/or medical support in addressing this problem. Your BMI and weight management will be followed at subsequent visits. 4. BMI 38.0-38.9,adult (Z68.38: Body mass index [BMI] 38.0-38.9, adult) The standard range for ages 18 and older is >=18.5 and < 25 kg/m2. Your BMI today was above this range, this falls in the overweight to obese category and there are medical benefits to weight loss. We can offer counselling, referral, and/or medical support in addressing this problem. Your BMI and weight management will be followed at subsequent visits. Ordered: Body Mass Index (BMI) documented 3008F Depression Screening Negative 3352F Influenza immunization status assessed 1030F Most recent diastolic blood pressure <80 mm Hg 3078F Patient screen for fall risk: no falls in last year or 1 fall with no injury in last year 1101F Systolic BP <130 mm Hg (Most Recent) 3074F 5. Non-smoker (Z78.9: Other specified health status) Stable. Ordered: Current tobacco non-user 1036F Orders: tramadol, 50 mg = 1 tab(s), Oral, q12hr, PRN for pain, # 60 tab(s), Refills(s) 0, Pharmacy: [id number], 168, cm, 02/02/24 13:57:00 EST, Height/Length Dosing, 109.3, kg, 02/02/24 13:57:00 EST, Weight Dosing Follow-up With When Contact Information Igor Ly DO, FAM Within (more content not included)... Normal [facility] Comment on above: Result Comment: Elec tronically Signed By: Igor Ly DO\.br\Date and Time Signed: 02/02/24 14:19 EST Main OR Intraoperative Recor don 01-26-2024 Main OR Intraoperative Record Main OR Intraoperative Record IntraOp Document Type FTPM Summary Primary Physician: Blayne Mackenzie DO Finalized Date/Time: 01/26/24 09:37:07 Pt. Name: JESIKA CORTEZ Stefan Licona/Sex: 1950 Female Med Rec #: [id number] Physician: Blayne Mackenzie DO Financial #: [id number] Pt. Type: P Room/Bed: / Admit/Disch: 01/26/24 07:10:01 - Institution: Case Times FTPM Entry 1 Patient Times In Room 01/26/24 09:02:00 Out Room 01/26/24 09:32:00 Procedure Times Start 01/26/24 09:05:00 Stop 01/26/24 09:30:00 Anesthesia Times Start 01/26/24 09:02:00 Stop 01/26/24 09:32:00 Last Modified By: Yang Valentin RN 01/26/24 09:32:45 Case Attendance FTPM Entry 1 Entry 2 Entry 3 Case Attendee Jarad Hansen Jr., DO, DO, Bradford A. Williams CRNA, Paul A. Role Performed Anesthesiologist of Surgeon - Primary Anesthesiologist Record Embroidery Worker Time In 01/26/24 09:02:00 01/26/24 09:02:00 01/26/24 09:02:00 Time Out 01/26/24 09:32:00 01/26/24 09:32:00 01/26/24 09:32:00 Procedure GENICULAR GENICULAR GENICULAR ABLATION(Bilateral, ABLATION(Bilateral, ABLATION(Bilateral, Bilateral) Bilateral) Bilateral) Comments Last Modified By: Hmoero MEJÍA, Yang Valentin RN, Yang Zhu RN 01/26/24 09:32:51 M 01/26/24 09:32:51 M 01/26/24 09:32:51 Entry 4 Entry 5 Entry 6 Case Attendee Homero MEJÍA, Yang Harry RN, Babita FOWLER, Phuc Ramirez Role Performed Microsystems Engineer - Primary Scrub - Primary P 3 Armament/Ordnance Ima Technician Time In 01/26/24 09:02:00 01/26/24 09:02:00 01/26/24 09:02:00 Time Out 01/26/24 09:32:00 01/26/24 09:32:00 01/26/24 09:32:00 Procedure GENICULAR GENICULAR GENICULAR ABLATION(Bilateral, ABLATION(Bilateral, ABLATION(Bilateral, Bilateral) Bilateral) Bilateral) Comments Last Modified By: Homero MEJÍA, Yang Valentin RN, Yang Zhu RN 01/26/24 09:32:51 M 01/26/24 09:32:51 M 01/26/24 09:32:51 Perioperative Protocols FTPM Pre-Care Text: Implements protective measures prior to operative or invasive procedure, confirms identity before the operative or invasive procedure, verifies operative procedure, surgical site, and laterality Entry 1 Procedure(s) GENICULAR Patient Identity Birthday, ID Band ABLATION(Bilateral, Verified (select at Check, Patient Bilateral) least 2): Participation Consents / H and P Anesthesia Consent, Operative Site Present Verified H&P, Surgery/Procedure Marking Verified Consent Surgical Site Yes Laterality Verified Yes Verified Procedure Verified Yes Correct Patient Yes Position Verified Availability Equipment, Medication, PreOp Antibiotic No Verified (If X-ray Given Applicable) Time Out Yang Valentin RN Time Out Complete 01/26/24 09:02:00 Participants Piero Gutierrez RN, Babita Flynn, Gurdeep BRAVO, Blayne Atkinson, Constantino RT, Phuc P, Nate Smith CRNA Outcomes Met? Yes Last Modified By: Yang Valentin RN 01/26/24 09:08:54 Post-Care Text: The patient is free from signs and symptoms of injury caused by extraneous objects Allergy Information FTPM Pre-Care Text: Verifies allergies Entry 1 Allergies Reviewed? Yes Allergies Reviewed Self/Patient With Outcomes Met? Yes Last Modified By: Yang Valentin RN 01/26/24 09:09:03 Post-Care Text: The patient received appropriate medication(s) safely administered during the perioperative period Surgical Procedures FTPM Entry 1 Procedure Description Procedure GENICULAR ABLATION Modifiers Bilateral, Bilateral Surgeon Description B/L GENICULAR RFA Primary Procedure Yes Primary Surgeon Balyne Mackenzie DO Start 01/26/24 09:05:00 Stop 01/26/24 09:30:00 Anesthesia Type MAC Surgical Service Pain Management Wound Class 1 - Clean Last Modified By: Yang Valentin RN 01/26/24 09:32:53 General Case Data FTPM Pre-Care Text: Classifies surgical wound, implements aseptic technique, initiates traffic control Entry 1 Case Information OR Pain Proc Room Case Level Level 2 Wound Class 1 - Clean Specialty Pain Management ASA Class 3 Preop Diagnosis M25.561 Postop Same As Preop Yes Postop Diagnosis M25.561 Outcomes Met? Yes Last Modified By: Yang Valentin RN 01/26/24 09:09:18 Post-Care Text: The patient is free from signs and symptoms of infection Skin Assessment (Pre Procedure) FTPM Pre-Care Text: Implements protective measures to prevent skin/ tissue injury due to thermal or mechanical sources Evaluates for signs and symptoms of physical injury to skin and tissue Entry 1 Skin Integrity Intact, [place], Warm, & Skin Abnormality No Dry Outcomes Met? Yes Last Modified By: Yang Valentin RN 01/26/24 08:14:08 Post-Care Text: The patient is free from signs and symptoms of injury caused by extraneous objects Patient Positioning FTPM Pre-Care Text: Identifies physical alterations that require additional precautions for procedure-specific positioning, verifies presence o (more content not included)... Normal [facility] Main OR Preoperative Recordo n 01-26-2024 Main OR Preoperative Record Main OR Preoperative Record Holding Area Document Type FTPM Summary Primary Physician: Blayne Mackenzie DO Finalized Date/Time: 01/26/24 07:42:06 Pt. Name: JESIKA CORTEZ/Sex: 1950 Female Med Rec #: [id number] Physician: Blayne Mackenzie DO Financial #: [id number] Pt. Type: P Room/Bed: / Admit/Disch: 01/26/24 07:10:01 - Institution: Case Times Holding FTPM Pre-Care Text: Verifies consent for planned procedure, identifies individual values and wishes concerning care, includes family members in perioperative teaching Secures patient's records' belongings, and valuables, maintains patient's dignity and privacy, and maintains patient confidentiality Entry 1 In Holding 01/26/24 07:40:00 Outcomes Met? Yes Last Modified By: Clarissa Carlton RN 01/26/24 07:40:11 Post-Care Text: The patient participates in decisions affecting his or her perioperative plan of care The patient's right to privacy is maintained Surgery Checklist FTPM Entry 1 Patient Birthday, ID Band Procedure History and Physical, Identification: Check, Patient Verification: Surgical Consent, With Participation Patient NPO after Midnight: Yes Date/Time: 01/26/24 07:40:00 Personal Items: Cataract Lens Implant, Personal Items Partial dentures Dentures Comment: Complaints of Pain: Yes Pain Comment: 11/26 bilateral knees Operative Site Yes Marked By: Gurdeep Marking: Location: bilateral knees Availability Equipment, X-Ray Verified: Does Patient Smoke No Patient states Yes Comment - Adult Leigha postop adult Supervision supervision available Case Cancelled in No Holding Area see comments below for reason Last Modified By: Clarissa Carlton RN 01/26/24 07:41:58 Finalized By: Clarissa Carlton RN Document Signatures Signed By: Clarissa Carlton RN 01/26/24 07:42 Clarissa Carlton RN 01/26/24 07:42 Normal [facility] Operative Reporton 4 Operative Report Operative Report Diagnosis: M25.561, right knee pain. M25.562, left knee pain Procedure: Bilateral knee genicular nerves radiofrequency ablation under fluoroscopic guidance Anesthesia: MAC Complications: none Patient was met in the preoperative holding area and risks, benefits, and alternatives of procedure were discussed with patient. The patient provided informed consent to move forward with the procedure. Once the patient was brought to the operating room, she was placed on monitors and an anesthetic was started. Both knees were exposed, prepped, and draped in the usual sterile fashion using ChloraPrep and sterile towels. On the left side first, using fluoroscopic guidance, the expected anatomic positions of the superior medial, superior lateral and inferior medial genicular nerves were identified and the skin and subcutaneous tissue were anesthetized anticipated needle trajectory with lidocaine. Next, 18-gauge radiofrequency needles were inserted and directed by fluoroscopic guidance to the above-mentioned target sites. Final needle tip positions were confirmed in the AP and lateral views. Next, motor stimulation was conducted at 2.0 V at each needle site and revealed no lower extremity contractions or sensations distal to the knee or proximal to the knee for the patient. Next, after negative aspiration, 1.0 mL of 2.0% lidocaine was injected through each needle tip. Then an appropriate amount of time was allowed for the local anesthetic to set up. Next, radiofrequency lesioning was carried out at 80 degrees for 80 seconds x 2 with rotation of the needle tip to 90 degrees in between lesioning. The needles were removed, and bandages were applied. On the right side next, using fluoroscopic guidance, the expected anatomic positions of the superior medial, superior lateral and inferior medial genicular nerves were identified and the skin and subcutaneous tissue were anesthetized anticipated needle trajectory with lidocaine. Next, 18-gauge radiofrequency needles were inserted and directed by fluoroscopic guidance to the above-mentioned target sites. Final needle tip positions were confirmed in the AP and lateral views. Next, motor stimulation was conducted at 2.0 V at each needle site and revealed no lower extremity contractions or sensations distal to the knee or proximal to the knee for the patient. Next, after negative aspiration, 1.0 mL of 2.0% lidocaine was injected through each needle tip. Then an appropriate amount of time was allowed for the local anesthetic to set up. Next, radiofrequency lesioning was carried out at 80 degrees for 80 seconds x 2 with rotation of the needle tip to 90 degrees in between lesioning. The needles were removed, and bandages were applied. The patient tolerated procedure well with no immediate complications and was brought to recovery room in stable condition. Patient had 5/5 bilateral lower extremity strength postprocedure. Follow-up: The patient will update us on the response to this procedure, and agrees to continue currently prescribed/recommende d therapies. Lucía [facility] Comment on above: Result Comment: Elec tronically Signed By: Blayne Mackenzie DO.br\Date and Time Signed: 01/26/24 09:32 EST Main OR Intraoperative Recor don 12-16-2023 Main OR Intraoperative Record Main OR Intraoperative Record IntraOp Document Type FTPM Summary Primary Physician: Blayne Mackenzie DO Finalized Date/Time: 12/16/23 15:56:05 Pt. Name: JESIKA CORTEZ Livan/Sex: 1950 Female Med Rec #: [id number] Physician: Blanye Mackenzie DO Financial #: [id number] Pt. Type: P Room/Bed: / Admit/Disch: 12/16/23 13:25:09 - Institution: Case Times FTPM Entry 1 Patient Times In Room 12/16/23 15:41:00 Out Room 12/16/23 15:55:00 Procedure Times Start 12/16/23 15:44:00 Stop 12/16/23 15:55:00 Anesthesia Times Last Modified By: Yang Valentin RN 12/16/23 15:55:57 Case Attendance FTPM Entry 1 Entry 2 Entry 3 Case Attendee Blayne Mackenzie DO RN, Yang Lowry RN Role Performed Surgeon - Primary Scrub - Primary Microsystems Engineer - Primary Time In 12/16/23 15:41:00 12/16/23 15:41:00 12/16/23 15:41:00 Time Out 12/16/23 15:55:00 12/16/23 15:55:00 12/16/23 15:55:00 Procedure GENICULAR NERVE GENICULAR NERVE GENICULAR NERVE BLOCK(Bilateral) BLOCK(Bilateral) BLOCK(Bilateral) Comments Last Modified By: Homero RN, Yang Valentin RN, Yang Zhu RN 12/16/23 15:55:58 M 12/16/23 15:55:58 M 12/16/23 15:55:58 Entry 4 Entry 5 Case Attendee Lacy Milan RN, Emily C Role Performed P 3 Armament/Ordnance Ima Technician Staff - Other Time In 12/16/23 15:41:00 12/16/23 15:41:00 Time Out 12/16/23 15:55:00 12/16/23 15:55:00 Procedure GENICULAR NERVE GENICULAR NERVE BLOCK(Bilateral) BLOCK(Bilateral) Comments Last Modified By: Yang Valentin RN, RN, Christopher M 12/16/23 15:55:58 12/16/23 15:55:58 Perioperative Protocols FTPM Pre-Care Text: Implements protective measures prior to operative or invasive procedure, confirms identity before the operative or invasive procedure, verifies operative procedure, surgical site, and laterality Entry 1 Procedure(s) GENICULAR NERVE Patient Identity Birthday, ID Band BLOCK(Bilateral) Verified (select at Check, Patient least 2): Participation Consents / H and P H&P, Surgery/Procedure Operative Site Present Verified Consent Marking Verified Surgical Site Yes Laterality Verified Yes Verified Procedure Verified Yes Correct Patient Yes Position Verified Availability Equipment, Medication, Prep Dry Yes Verified (If X-ray Applicable) PreOp Antibiotic No Time Out Yang Valentin RN, Pritchard RN, Gurdeep Dunaway DO, Bradford A., Lacy Milan Myers RN, Babita Flynn Time Out Complete 12/16/23 15:41:00 Outcomes Met? Yes Last Modified By: Yang Valentin RN 12/16/23 15:43:49 Post-Care Text: The patient is free from signs and symptoms of injury caused by extraneous objects Allergy Information FTPM Pre-Care Text: Verifies allergies Entry 1 Allergies Reviewed? Yes Allergies Reviewed Self/Patient With Outcomes Met? Yes Last Modified By: Yang Valentin RN 12/16/23 15:43:56 Post-Care Text: The patient received appropriate medication(s) safely administered during the perioperative period Surgical Procedures FTPM Entry 1 Procedure Description Procedure GENICULAR NERVE BLOCK Modifiers Bilateral Surgeon Description GENICULAR NB Primary Procedure Yes Primary Surgeon Blayne Mackenzie DO Start 12/16/23 15:44:00 Stop 12/16/23 15:55:00 Anesthesia Type None Surgical Service Pain Management Wound Class 1 - Clean Last Modified By: Yang Valentin RN 12/16/23 15:55:59 General Case Data FTPM Pre-Care Text: Classifies surgical wound, implements aseptic technique, initiates traffic control Entry 1 Case Information OR Pain Proc Room Case Level Level 2 Wound Class 1 - Clean Specialty Pain Management Preop Diagnosis M25.561 Postop Same As Preop Yes Postop Diagnosis M25.561 Outcomes Met? Yes Last Modified By: Yang Valentin RN 12/16/23 15:44:07 Post-Care Text: The patient is free from signs and symptoms of infection Skin Assessment (Pre Procedure) FTPM Pre-Care Text: Implements protective measures to prevent skin/ tissue injury due to thermal or mechanical sources Evaluates for signs and symptoms of physical injury to skin and tissue Entry 1 Skin Integrity Intact, [place], Warm, & Skin Abnormality No Dry Outcomes Met? Yes Last Modified By: Yang Valentin RN 12/16/23 15:22:47 Post-Care Text: The patient is free from signs and symptoms of injury caused by extraneous objects Patient Positioning FTPM Pre-Care Text: Identifies physical alterations that require additional precautions for procedure-specific positioning, verifies presence of prosthetics or corrective devices, positions the patient, evaluates the patient for signs and symptoms of injury as a result of positioning Entry 1 Procedure GENICULAR NERVE Body Position Supine BLOCK(Bilateral) Feet Uncrossed? Yes Left Arm Position Resting at Side Right Arm Position Resting at Side Left Leg Position Extended Ri (more content not included)... Normal [facility] Main OR Preoperative Recordo n 12-16-2023 Main OR Preoperative Record Main OR Preoperative Record Holding Area Document Type FTPM Summary Primary Physician: Blayne Mackenzie DO Finalized Date/Time: 12/16/23 14:32:09 Pt. Name: JESIKA CORTEZ/Sex: 1950 Female Med Rec #: [id number] Physician: Blayne Mackenzie DO Financial #: [id number] Pt. Type: P Room/Bed: / Admit/Disch: 12/16/23 13:25:09 - Institution: Case Times Holding FTPM Pre-Care Text: Verifies consent for planned procedure, identifies individual values and wishes concerning care, includes family members in perioperative teaching Secures patient's records' belongings, and valuables, maintains patient's dignity and privacy, and maintains patient confidentiality Entry 1 In Holding 12/16/23 14:24:00 Outcomes Met? Yes Last Modified By: Tayler Garcia RN 12/16/23 14:24:37 Post-Care Text: The patient participates in decisions affecting his or her perioperative plan of care The patient's right to privacy is maintained Surgery Checklist FTPM Entry 1 Patient Birthday, ID Band Procedure History and Physical, Identification: Check, Patient Verification: Surgical Consent, With Participation Patient NPO after Midnight: No Results Reviewed 0930 breakfast sandwich Comments: and coffee Personal Items: Cataract Lens Implant, Personal Items Pt. wearing upper Dentures Comment: partial. She has a history of bilateral cataract lens implants. Complaints of Pain: Yes Pain Comment: 11/26 bilateral knee pain Operative Site Yes Marked By: Dr. Mackenzie Marking: Location: bilateral genicular Availability Equipment, X-Ray nerve block Verified: Does Patient Smoke No Patient states Yes Comment - Adult friend-Leigha postop adult Supervision supervision available Case Cancelled in No Holding Area see comments below for reason Last Modified By: Tayler Garcia RN 12/16/23 14:27:11 Finalized By: Tayler Garcia RN Document Signatures Signed By: Tayler Garcia RN 12/16/23 14:32 [facility] Operative Reporton Operative Report Operative Report Diagnosis: M25.561 Right knee pain, M25.562 Left knee pain. Procedure: Bilateral knee genicular nerve block under fluoroscopic guidance Anesthesia: Local Complications: none Patient was met in the preoperative holding area and risks, benefits, and alternatives of procedure were discussed with patient. The patient provided informed consent to move forward with the procedure. The patient was monitored inclusive of blood pressure and pulse oximetry. The knee was exposed, prepped, and draped in the usual sterile fashion using ChloraPrep and sterile towels. Using fluoroscopic guidance, the expected anatomic positions of the superior medial, superior lateral and inferior medial genicular nerves were identified and the skin and subcutaneous tissue were anesthetized anticipated needle trajectory with lidocaine. Next, 22-gauge spinal needles were inserted and directed by fluoroscopic guidance to the above-mentioned target sites. Final needle tip positions were confirmed in the AP and lateral views. Injection of Omnipaque contrast to negative aspiration showed no vascular uptake. After negative aspiration, 0.5 mL of 0.5% bupivacaine was injected at each of the needle tips. The needles were removed, and bandages were applied. The patient tolerated procedure well with no immediate complications and was brought to recovery room in stable condition. Follow-up: The patient will update us on the response to this procedure, and agrees to continue currently prescribed/recommende d therapies. Normal [facility] Comment on above: Result Comment: Elec tronically Signed By: Blayne Mackenzie DO\Date and Time Signed: 12/16/23 15:57 EDT Ambulatory Visit Summaryon 1 Ambulatory Visit Summary Ambulatory Visi t Summary JESIKA CORTEZ :1950 Visit Date:12/08/2023 Ambulatory Visit Instructions Your Diagnosis Bilateral primary osteoarthritis of knee BMI 38.0-38.9,adult Non-smoker Your Care Team Attending Physician - Igor Ly DO Primary Care Physician - Igor Ly DO This Is Your Medications List Misc Prescription (Handicap Placard) Misc Prescription (PTTD ankle brace) acetaminophen-oxycodo ne (acetaminophen-oxycod one 325 mg-5 mg Tab) atorvastatin (atorvastatin 40 mg Tab) cholecalciferol (Vitamin D3 2000 intl units) diclofenac (diclofenac potassium 50 mg oral tablet) gabapentin (gabapentin 300 mg Cap) hydrochlorothiazide-l isinopril (hydrochlorothiazide- lisinopril 25 mg-20 mg Tab) latanoprost ophthalmic metoprolol (Metoprolol tartrate 25 mg Tab) multivitamin (Super B Complex oral tablet) naproxen (Aleve) timolol ophthalmic (timolol Opth 0.5% Zeynep 15 mL) [Image Removed: STOP]Stop taking these medications meloxicam (meloxicam 15 mg Tab) tramadol (traMADOL 50 mg Tab) Procedures Performed Colonoscopy (09/20/2020), back laminectomy, cataract surgery, hysterectomy, lumbar fusion. Discharge Vitals Heart Rate (Peripheral) 74 Blood Pressure 124/76 Height 168 cm Height 66 in Weight 108.6 kg Weight 238.92 lb BMI 38.48 What to do next Scheduled Follow-Up Appointments Friday 2:30 PM EDT With: Where: [facility] Friday 10:45 AM EDT With: Maribel Hurtado PA-C Where: [facility] Friday 11:00 AM EST With: Igor Ly DO Where: [facility] [place] [address] [place] [address]- Friday 8:30 AM EST With: Where: [facility] [address] [place] [address]- Friday 9:40 AM EST With: Igor Ly DO Where: [facility] [address] [place] [address]- You Need to Schedule the Following Appointments Follow Up with Igor Ly DO, [facility] When: Within 6 weeks Comments: 6 WEEKS FOLLOWUP Where: [address] [place] [address]- Medications What How Much When Why Instructions New diclofenac (diclofenac potassium 50 mg oral tablet) 1 Tablets By Mouth 2 times a day as needed for for arthritis Refills: 2 Do not take with other anti-inflammatories Pickup at [facility]/pharmacy #[id number] Unchanged acetaminophen-oxycodo ne (acetaminophen-oxycod one 325 mg-5 mg Tab) 1 Tablets By Mouth 2 times a day as needed for for pain Bilateral primary osteoarthritis of knee Pickup at [facility]/pharmacy #[id number] Unchanged atorvastatin (atorvastatin 40 mg Tab) 1 Tablets By Mouth Every day Unchanged cholecalciferol (Vitamin D3 2000 intl units) 2,000 International unit By Mouth Every day Unchanged gabapentin (gabapentin 300 mg Cap) 2 Capsules By Mouth Once a day (at bedtime) Chronic pain Unchanged hydrochlorothiazide-l isinopril (hydrochlorothiazide- lisinopril 25 mg-20 mg Tab) 2 Tablets By Mouth Every day Unchanged latanoprost ophthalmic Both eyes Unchanged metoprolol (Metoprolol tartrate 25 mg Tab) 1 Tablets By Mouth 2 times a day Unchanged Misc Prescription (Handicap Placard) See instructions Expires 2028 Unchanged Misc Prescription (PTTD ankle brace) See instructions one brace Unchanged multivitamin (Super B Complex oral tablet) Oral, 0 Refill(s) Unchanged naproxen (Aleve) 220 Milligram By Mouth Once Unchanged timolol ophthalmic (timolol Opth 0.5% Zeynep 15 mL) 1 Drops 2 times a day Pharmacy Information [facility]/pharmacy #[id number]: [address] [place] [phone] What How Much When Why Comments Stop Taking meloxicam (meloxicam 15 mg Tab) 1 Tablets By Mouth Every day Dorsalgia of lumbar region Stop Taking tramadol (traMADOL 50 mg Tab) 1 Tablets By Mouth Every day as needed for for pain Primary osteoarthritis, left shoulder At bedtime Medications and Immunizations Administered Not Given influenza virus vaccine, inactivated, Postpone due to refusal Allergies Lyrica (swelling) anabolic steroids Problems Ongoing - Any problem that you are currently receiving treatment for. Bilateral primary osteoarthritis of knee Dorsalgia of lumbar region Edema of left lower extremity Essential hypertension Heart murmur Hyperlipidemia Morbid obesity Osteoarthritis of shoulders, bilateral Patient Survey You may receive a survey via text or e-mail asking about your office visit. Please share your experience with us by completing your survey. We appreciate your feedback and thank you for choosing us for your care. Normal [facility] Family Medicine Office/Clini c Noteon 12-08-2023 Family Medicine Office/Clinic Note Family Medicine Office/Clinic Note Chief Complaint 2 week follow up HPI Staff Patient here for 2 week f/u - At last visit Percocet increased and Gabapentin reduced, for 2 week trial. Patient notes taking as directed, and improvement. She has been adding 1.5 Tylenol Extra Strength at night and Aleve during the day. [place]: 09/20/20, repeat in 10 years Dexa: per pt 2022, [facility]: 02/13/23 AMW: scheduled 02/09/24 Flu: declines History of Present Illness Patient presents today for 2 week followup on medications. - Patient on tramadol chronically for body pain, maxed out on meloxicam - Referred to pain management by orthopedics, trying to avoid having joint replacement surgery - Bilateral knee pain from osteoarthritis - Trialed 2 weeks of BID 5-325mg Percocet Today, patient states that she is moving much better. The pain is much better controlled. She states she discussed taking some extra supplements with Tylenol and Aleve. She was unaware she was not supposed to keep this up with Meloxicam. She would like to discuss what she can and cannot take for OTC use. Review of Systems PHQ Score Initial Depression Screen Score: 0 SCORE ROS - Provider Constitutional: no fever, no chills Skin: no rash, no lesions ENMT: no ear pain, no sore throat, no congestion, no hoarseness. Respiratory: no shortness of breath, no cough, no wheezing. Cardiovascular: no chest pain, no palpitations, no edema. Gastrointestinal: no nausea, no vomiting, no diarrhea, Musculoskeletal: yes back pain, no trauma, yes arthritis pain Neurologic: no headache, no dizziness, no numbness, no weakness. Psychiatric: no sleeping problems, no irritability, no mood swings/depression. Physical Exam Vitals & Measurements HR: 74(Peripheral) BP: 124/76 SpO2: 99% HT: 66 in HT: 168 cm WT: 108.6 kg WT: 238.92 lb BMI: 38.48 General: Well developed, well nourished, in no acute distress Head: Normocephalic/atrauma tic Eyes: Pupils equal, round, and reactive to light. Sclerae normal, and extraocular movements intact Lungs: Normal respiratory effort and clear to auscultation Cardio: Regular rate and rhythm, CAMILO and normal S2, no rub Musculoskeletal: No deformity or scoliosis noted. Normal range of motion. Joints normal. No erythema, edema, effusion, or ecchymosis, bilateral knee crepitance with joint motion Extremity: No clubbing, cyanosis, edema, or deformity, with normal ROM in both upper and lower bilateral extremities Neurologic: Grossly normal Skin: No rash, petechiae, suspicious lesions Mental Status: Alert and oriented x3. Normal mood and affect Assessment/Plan 1. Bilateral primary osteoarthritis of knee (M17.0: Bilateral primary osteoarthritis of knee) We clarified her OTC use today to not include Aleve, will increase anti-inflammatory coverage from Meloxicam to Diclofenac. Will consider reduction on Percocet back to tramadol as pain management makes progress for her. Recheck in 2 months. Ordered: acetaminophen-oxycodo ne, 1 tab(s), Oral, BID for pain, 60 tab(s), Refill(s) 0, [facility]/pharmacy #[id number], 168, cm, 12/08/23 11:52:00 EDT, Height/Length Dosing, 108.6, kg, 12/08/23 11:52:00 EDT, Weight Dosing 2. BMI 38.0-38.9,adult (Z68.38: Body mass index [BMI] 38.0-38.9, adult) The standard range for ages 18 and older is >=18.5 and < 25 kg/m2. Your BMI today was above this range, this falls in the overweight to obese category and there are medical benefits to weight loss. We can offer counselling, referral, and/or medical support in addressing this problem. Your BMI and weight management will be followed at subsequent visits. Ordered: Body Mass Index (BMI) documented 3008F Depression Screening Negative 3352F Influenza immunization status assessed 1030F Most recent diastolic blood pressure <80 mm Hg 3078F Patient screen for fall risk: no falls in last year or 1 fall with no injury in last year 1101F Systolic BP <130 mm Hg (Most Recent) 3074F 3. Non-smoker (Z78.9: Other specified health status) Stable. Ordered: Current tobacco non-user 1036F Orders: diclofenac, 50 mg = 1 tab(s), Oral, BID, PRN for arthritis, Do not take with other anti-inflammatories, # 60 tab(s), Refills(s) 2, Pharmacy: [facility]/pharmacy #[id number], 168, cm, 12/08/23 11:52:00 EDT, Height/Length Dosing, 108.6, kg, 12/08/23 11:52:00 EDT, Weight Dosing Follow-up With When Contact Information Igor Ly DO, [facility] Within 6 weeks [address] [place] [address]- Additional Instructions: 6 WEEKS FOLLOWUP Problem List/Past Medical History Ongoing Bilateral primary osteoarthritis of knee Dorsalgia of lumbar region Edema of left lower extremity Essential hypertension Heart murmur Hyperlipidemia Morbid obesity Osteoarthritis of shoulders, bilateral Historical No qualifying data Procedure/Surgical History Colonoscopy (09/20/2020), back laminectomy, cataract surgery, hysterectomy, lumbar fusion. Medications acetaminophen-oxycodo ne 325 mg-5 mg T (more content not included)... Normal [facility] Comment on above: Result Comment: Elec tronically Signed By: Igor Ly DO\.br\Date and Time Signed: 12/08/23 12:13 EDT Ambulatory Visit Summaryon 1 Ambulatory Visit Summary Ambulatory Visi t Summary JESIKA CORTEZ :1950 Visit Date:11/24/2023 Ambulatory Visit Instructions Your Diagnosis Bilateral primary osteoarthritis of knee Morbid obesity BMI 38.0-38.9,adult Non-smoker Your Care Team Attending Physician - Igor Ly DO Primary Care Physician - Igor Ly DO This Is Your Medications List Misc Prescription (Handicap Placard) Misc Prescription (PTTD ankle brace) acetaminophen-oxycodo ne (acetaminophen-oxycod one 325 mg-5 mg Tab) atorvastatin (atorvastatin 40 mg Tab) cholecalciferol (Vitamin D3 2000 intl units) gabapentin (gabapentin 300 mg Cap) hydrochlorothiazide-l isinopril (hydrochlorothiazide- lisinopril 25 mg-20 mg Tab) latanoprost ophthalmic meloxicam (meloxicam 15 mg Tab) metoprolol (Metoprolol tartrate 25 mg Tab) multivitamin (Super B Complex oral tablet) naproxen (Aleve) timolol ophthalmic (timolol Opth 0.5% Zeynep 15 mL) tramadol (traMADOL 50 mg Tab) Procedures Performed Colonoscopy (09/20/2020), back laminectomy, cataract surgery, hysterectomy, lumbar fusion. Discharge Vitals Heart Rate (Peripheral) 68 Blood Pressure 128/74 Height 168 cm Height 66 in Weight 107.6 kg Weight 236.72 lb BMI 38.12 What to do next Scheduled Follow-Up Appointments Friday 11:40 AM EDT With: Igor Ly DO Where: [place] [address] [place] [address]- Friday 8:30 AM EST With: Where: [address] [address]- Friday 9:40 AM EST With: Igor Ly DO Where: [address] [address]- You Need to Schedule the Following Appointments Follow Up with Igor Ly DO, [facility] When: Within 2 weeks Comments: 2 WEEKS Where: [address] [address]- Medications What How Much When Why Instructions New acetaminophen-oxycodo ne (acetaminophen-oxycod one 325 mg-5 mg Tab) 1 Tablets By Mouth 2 times a day as needed for for pain Bilateral primary osteoarthritis of knee Pickup at [facility]/pharmacy #[id number] Unchanged atorvastatin (atorvastatin 40 mg Tab) 1 Tablets By Mouth Every day Unchanged cholecalciferol (Vitamin D3 2000 intl units) 2,000 International unit By Mouth Every day Unchanged gabapentin (gabapentin 300 mg Cap) 2 Capsules By Mouth Once a day (at bedtime) Chronic pain Unchanged hydrochlorothiazide-l isinopril (hydrochlorothiazide- lisinopril 25 mg-20 mg Tab) 2 Tablets By Mouth Every day Unchanged latanoprost ophthalmic Both eyes Unchanged meloxicam (meloxicam 15 mg Tab) 1 Tablets By Mouth Every day Dorsalgia of lumbar region Unchanged metoprolol (Metoprolol tartrate 25 mg Tab) 1 Tablets By Mouth 2 times a day Unchanged Misc Prescription (Handicap Placard) See instructions Expires 2028 Unchanged Misc Prescription (PTTD ankle brace) See instructions one brace Unchanged multivitamin (Super B Complex oral tablet) Oral, 0 Refill(s) Unchanged naproxen (Aleve) 220 Milligram By Mouth Once Unchanged timolol ophthalmic (timolol Opth 0.5% Zeynep 15 mL) 1 Drops 2 times a day Unchanged tramadol (traMADOL 50 mg Tab) 1 Tablets By Mouth Every day as needed for for pain Primary osteoarthritis, left shoulder At bedtime Pharmacy Information [facility]/pharmacy #[id number]: [address] [place], [place] [phone] Medications and Immunizations Administered Not Given influenza virus vaccine, inactivated, Postpone due to refusal Allergies Lyrica (swelling) anabolic steroids Problems Ongoing - Any problem that you are currently receiving treatment for. Bilateral primary osteoarthritis of knee Dorsalgia of lumbar region Edema of left lower extremity Essential hypertension Heart murmur Hyperlipidemia Morbid obesity Osteoarthritis of shoulders, bilateral Patient Survey You may receive a survey via text or e-mail asking about your office visit. Please share your experience with us by completing your survey. We appreciate your feedback and thank you for choosing us for your care. Normal [facility] Family Medicine Office/Clini c Noteon 11-24-2023 Family Medicine Office/Clinic Note Family Medicine Office/Clinic Note Chief Complaint ER follow up HPI Staff Patient here for ER f/u [place] [facility] [place]: [place] Symptoms the patient presented with: bilateral knee pain Prescribed 12 tabs of [place]. Advised to f/u with PCP and PM. - She was also seen at PM 11/20, after being referred by Orthopedic. Discussed increasing Gabapentin and bilateral genicular nerve blocks. Patient believed she would be given injections at appointment and was upset when she didn't. She was advised that she wasn't going to receive at this appointment and scheduled. Advised to double her Gabapentin at HS. She notes she won't have the injections for 3 weeks and would like to discuss pain management with PCP. Current concerns: Pain Management [place]: 09/20/20, repeat in 10 years Dexa: per pt 2022, [facility] Grace: 02/13/23 AMW: scheduled 02/09/24 Flu: declines History of Present Illness Patient presents today to discuss knee pain. - Patient on tramadol chronically for body pain, maxed out on meloxicam Patient was seen at pain management on 11/21/2023 at the request of her orthopedics provider. She had discussed her findings with orthopedics due to bilateral knee osteoarthritis. She was recommended to have bilateral knee replacements, but she wished to avoid this problematic surgery. She was increased on gabapentin, and they recommended her with bilateral genicular nerve blocks. She has not yet received these blocks. She was upset that she did not receive help at the pain management visit for injections or medications, so she went to the ER for help. Date of visit was 11/21/2023 She was provided with pain control at the ER with [place]. Today, she states that she continues to continue with pain in her knees. She states that she is frustrated from her pain, states that she had hope that something could help. She would like to discuss an increase in her pain control medications today. Review of Systems ROS - Provider Constitutional: no fever, no chills Skin: no rash, no lesions ENMT: no ear pain, no sore throat, no congestion, no hoarseness. Respiratory: no shortness of breath, no cough, no wheezing. Cardiovascular: no chest pain, no palpitations, no edema. Gastrointestinal: no nausea, no vomiting, no diarrhea, Musculoskeletal: yes back pain, no trauma, yes arthritis pain Neurologic: no headache, no dizziness, no numbness, no weakness. Psychiatric: no sleeping problems, no irritability, no mood swings/depression. Physical Exam Vitals & Measurements HR: 68(Peripheral) BP: 128/74 SpO2: 100% HT: 66 in HT: 168 cm WT: 107.6 kg WT: 236.72 lb BMI: 38.12 General: Well developed, well nourished, in no acute distress Head: Normocephalic/atrauma tic Eyes: Pupils equal, round, and reactive to light. Sclerae normal, and extraocular movements intact Lungs: Normal respiratory effort and clear to auscultation Cardio: Regular rate and rhythm, CAMILO and normal S2, no rub Musculoskeletal: No deformity or scoliosis noted. Normal range of motion. Joints normal. No erythema, edema, effusion, or ecchymosis, bilateral knee crepitance with joint motion Extremity: No clubbing, cyanosis, edema, or deformity, with normal ROM in both upper and lower bilateral extremities Neurologic: Grossly normal Skin: No rash, petechiae, suspicious lesions Mental Status: Alert and oriented x3. Normal mood and affect Assessment/Plan 1. Bilateral primary osteoarthritis of knee (M17.0: Bilateral primary osteoarthritis of knee) Patient's OARRS reviewed, findings appropriate. Discussed options from increased Tramadol dose, discussed continued pain management efforts from specialists. After some discussion, we decided to trial a 2 week supply of of 5-325mg BID Percocet for her to increase pain control. Reduced gabapentin down due to overlap with Percocet. Plan to recheck patient in 2 weeks for improvement. Ordered: acetaminophen-oxycodo ne, 1 tab(s), Oral, BID for pain, 28 tab(s), Refill(s) 0, [facility]/pharmacy #[id number], 168, cm, 11/24/23 14:05:00 EDT, Height/Length Dosing, 107.6, kg, 11/24/23 14:05:00 EDT, Weight Dosing 2. Morbid obesity (E66.01: Morbid (severe) obesity due to excess calories) The standard range for ages 18 and older is >=18.5 and < 25 kg/m2. Your BMI today was above this range, this falls in the overweight to obese category and there are medical benefits to weight loss. We can offer counselling, referral, and/or medical support in addressing this problem. Your BMI and weight management will be followed at subsequent visits. 3. BMI 38.0-38.9,adult (Z68.38: Body mass index [BMI] 38.0-38.9, adult) As per #2 Ordered: Body Mass Index (BMI) documented 3008F Influenza immunization status assessed 1030F Most recent diastolic blood pressure <80 mm Hg 3078F Patient screen for fall risk: no falls in last year or 1 fall with no injury in last year 1101F Systolic BP <130 mm Hg (Most Recent) 3074F 4. Non-smoker (Z78.9: Other specified health sta (more content not included)... Normal [facility] Comment on above: Result Comment: Elec tronically Signed By: Igor Ly DO.michael\Date and Time Signed: 11/24/23 14:40 EDT ED Note-Physicianon 11-21-19 ED Note-Physician ED Note-Physician Basic Information Time Seen: Danilo Pena PA-C 11/20/2023 13:24 Chief Complaint Patient presents to the ER today d/t bilateral knee pain that started a month ago and patient got b/L cortisone shots in the them. Columbatent states that her knees began hurting again this past weekend. Saw the EMELI this week and was told she needed to folllow History of Present Illness Patient is a 72-year-old female presents today for evaluation of her bilateral knee pain. She states that it has been going on for the last month and she had bilateral cortisone injections in them about a month ago. Started to wear off over the last week and now she has been having worsening severe pain. She saw orthopedics who recommended that she see pain management in order to have gel injections in the knees versus a possible nerve block. She knows that she needs knee replacements of the bilateral knees but wants to refrain from them at this time. She is having difficulty controlling the pain despite even using tramadol at this time. She is taking meloxicam without relief either. Review of Systems No other aggravating or relieving factors no other associated symptoms no other prior treatments or complaints. Family: Reviewed and noncontributory Social: lives at home Review of systems negative unless otherwise specified in the HPI. Physical Exam Vitals & Measurements T: 36.7 ?C(Oral) HR: 65(Peripheral) RR: 20 BP: 171/81 SpO2: 97% HT: 167.6 cm WT: 107.4 kg BMI: 38.23 Vital Signs reviewed and noted. General: Alert, no acute distress, patient resting comfortably Skin: warm, intact, no pallor noted Head: Normocephalic, atraumatic Eye: Normal conjunctiva Cardiac: Normal peripheral perfusion Respiratory: No acute distress Musculoskeletal: No deformity, full ROM. Bilateral knee swelling and moderate tenderness to the bilateral medial and lateral joint lines. Intact ligamentously. Neurological: alert and oriented, normal sensory and motor observed. Psychiatric: Cooperative Medical Decision Making Patient is a 72-year-old female who presents today for evaluation of her bilateral knee pain. She had bilateral cortisone injections in them a couple weeks ago and they have already started to wear off leaving her with worsening pain. She knows that she needs knee replacements and is trying to follow-up with pain management in order to have gel injections but that may take a couple of weeks. On exam the patient has bilateral knee swelling and moderate tenderness to the bilateral medial lateral joint lines. Given her increased pain acutely we will start her on [place] and I provided her with a dose here in the ED. She will follow-up with pain management in order to have these gel injections. We did discuss possible orthopedic second opinion which she wants to refrain from at this time. She will be discharged home with close follow-up with pain management or PCP. Return to ED precautions were reviewed with the patient at length. Assessment/Plan Bilateral knee pain (M25.561: Pain in right knee) Osteoarthritis, knee (M17.9: Osteoarthritis of knee, unspecified) Pain in left knee (M25.562: Pain in left knee) Orders: acetaminophen-hydroco done, 1 tab(s), Oral, q6hr for pain for 3 day(s), 12 tab(s), Refill(s) 0, [id number], 167.6, cm, 11/20/23 13:19:00 EDT, Height/Length Dosing, 107.4, kg, 11/20/23 13:19:00 EDT, Weight Dosing Disposition Plan Patient Discharge Condition Stable Discharge Disposition Home Discharge Prescription List Prescriptions [place] 325 mg-5 mg oral tablet, 1 tab(s), Oral, q6hr, PRN Follow-up With When Contact Information [facility] In 3 days 11/23/2023 EDT [address] [place] [address]- [phone] Business (1) Additional Instructions: Igor Ly In 3 days 11/23/[address] [place] [address]- Business (1) Additional Instructions: Patient Education Osteoarthritis Attestation Patient seen and evaluated by the physician commercial loan assistant. Attending physician was present in the emergency department and supervised care. This visit was performed by both the physician and an APC. I performed all aspects of the MDM as documented. This report was transcribed using voice recognition software. Every effort was made to ensure accuracy, however, inadvertently computerized family centered specialist mistakes may be present. Appropriate healthcare PPE was used in evaluating this patient. The patient was placed in a mask. The healthcare provider was wearing mask, gloves, and utilizing proper hand hygiene. All equipment was properly cleansed. I performed a substantive part of the MDM during the patient?s E/M visit. I personally made or approved the documented management plan and acknowledge its risk of complications. (Independent Interpretation) My (EKG/X-Ray/US/CT as applicable) interpretation as above. (Discussion) Management/test interpretation discussed with APC. Problem List/Past Medical History Terrie (more content not included)... Normal [facility] Comment on above: Result Comment: Elec tronically Signed By: Danilo Pena PA-C\.br\Date and Time Signed: 11/21/23 01:03 EDT\.br\Electronically Co-Signed By: Donovan Ward DO\.br\Date and Time Co-Signed: 11/21/23 13:57 EDT ED Clinical Summaryon 2023 ED Clinical Summary ED Clinical Summary [place] [address] ED Clinical Summary Person Information Name: JESIAK CORTEZ Aimee/[facility] Age: 72 Years : 1950 Sex: Female Language: Kazakh PCP: Igor Ly DO Marital Status: Single Visit Id: Visit Reason: Knee pain-swelling; TROUBLE WALKING - LEG AND KNEE PAIN Speciality: Acuity: 4 Enc Type: Emergency Med Service: Emergency Arrival: 11/20/2023 13:07:38 Discharge: 11/20/2023 14:14:32 LOS: 000 01:07 Checkin: 11/20/2023 13:07:38 Checkout: 11/20/2023 14:14:32 Dispo Type: Home (Routine DC) EVENTS: Event Name Event Status Request Date/Time Start Date/Time Complete Date/Time Arrive Complete 11/20/2023 13:07:38 11/20/2023 13:07:38 11/20/2023 13:07:38 Document Home Meds Request 11/20/2023 13:07:38 Triage Complete 11/20/2023 13:07:38 11/20/2023 13:19:23 11/20/2023 13:19:23 Bed Assign Complete 11/20/2023 13:11:20 11/20/2023 13:11:20 11/20/2023 13:11:20 Dr Exam Complete 11/20/2023 13:11:20 11/20/2023 13:24:35 11/20/2023 13:24:35 RN Exam Complete 11/20/2023 13:11:20 11/20/2023 14:14:08 11/20/2023 14:14:08 Registration Complete 11/20/2023 13:24:35 11/20/2023 13:31:22 11/20/2023 13:31:22 Dr Exam Complete 11/20/2023 13:25:42 11/20/2023 13:25:42 11/20/2023 13:25:42 Reg Complete Request 11/20/2023 13:31:22 Reg Bed Request Complete 11/20/2023 13:31:22 11/20/2023 13:31:22 11/20/2023 13:31:22 Discharge Complete 11/20/2023 13:55:07 11/20/2023 14:14:37 11/20/2023 14:14:37 Transfer Complete 11/20/2023 14:14:37 11/20/2023 14:14:37 11/20/2023 14:14:37 ADDRESS: [address] [place] [phone] PHYS DOC NOTES: MEDICAL INFORMATION: Prescriptions Given: New Medications [id number] [address] [place], [place] [phone], [phone] acetaminophen-hydroco done ([place] 325 mg-5 mg oral tablet) 1 Tablets By Mouth every 6 hours as needed for pain for 3 Days. Refills: 0. Medications to Continue with No Changes Other Medications atorvastatin (atorvastatin 40 mg Tab) 1 Tablets By Mouth every day. Refills: 3. cholecalciferol (Vitamin D3 2000 intl units) 2,000 International unit By Mouth every day. dorzolamide-timolol ophthalmic (dorzolamide-timolol Opth 2%-0.5% Zeynep) 1 Drops Both eyes. gabapentin (gabapentin 300 mg Cap) 1 Capsules By Mouth once a day (at bedtime). Refills: 3. hydrochlorothiazide-l isinopril (hydrochlorothiazide- lisinopril 25 mg-20 mg Tab) 2 Tablets By Mouth every day. Refills: 3. latanoprost ophthalmic Both eyes. meloxicam (meloxicam 15 mg Tab) 1 Tablets By Mouth every day. Refills: 3. metoprolol (Metoprolol tartrate 25 mg Tab) 1 Tablets By Mouth 2 times a day. Refills: 3. Misc Prescription (Handicap Placard) Expires 08/2028. Refills: 0. Misc Prescription (PTTD ankle brace) one brace. Refills: 0. multivitamin (Super B Complex oral tablet) Oral, 0 Refill(s). tramadol (traMADOL 50 mg Tab) 1 Tablets By Mouth every day as needed for pain. At bedtime. Refills: 0. PATIENT EDUCATION INFORMATION: Instructions: Osteoarthritis Follow up: With: Address: When: [facility] [address] [place] [phone] Business (1) In 3 days 11/23/2023 With: Address: [place]: Igor Ly [address] [place], [place] [phone] Business (1) In 3 days 11/23/2023 DIAGNOSIS: Bilateral knee pain; Osteoarthritis, knee; Pain in left knee Normal [facility] ED Patient Summaryon 024 ED Patient Summary ED Patient Summary [address] [address] Patient Discharge Instructions Person Information Name: JESIKA CORTEZ Age: 72 Years Arrival Date: 11/20/2023 13:07:38 Discharge Diagnosis: Bilateral knee pain; Osteoarthritis, knee; Pain in left knee Primary Care Physician: Igor Ly DO Provider Information Primary Provider: Donovan Ward DO [employer] Illustrator:Danilo Pena PA-C. The exam and treatment you received in the Emergency Department were for an urgent problem and are not intended as complete care. It is important that you follow up with a doctor, nurse practitioner, or physician?s commercial loan assistant for ongoing care. If your symptoms become worse or you do not improve as expected and you are unable to reach your usual health care provider, you should return to the Emergency Department. We are available 24 hours a day. JESIKA CORTEZ has been given the following list of patient education materials, prescriptions and follow-up instructions: Follow-up Instructions: With: Address: When: [facility] [address] [place] [id number] [phone] [employer] (1) In 3 days 11/23/2023 With: Address: When: Igor Malachi [address] [place] [address] [address] [place] [address] Business (1) In 3 days 11/23/2023 In the event that this physician does not participate in your insurance network, please consult with your insurance company to find a nearby participating provider. Patient Education Materials: Osteoarthritis A MESSAGE TO ALL PATIENTS REGARDING OPIOIDS PRESCRIPTION OPIOIDS: WHAT YOU NEED TO KNOW Prescription opioids can be used to help relieve [id number] pain and are often prescribed following a surgery or injury, or for certain health conditions. These medications can be an important part of the treatment but also come with serious risks. It is important to work with your healthcare provider to make sure you are getting the safest, most effective care. WHAT ARE THE RISKS AND SIDE EFFECTS OF OPIOID USE? Prescription opioids carry serious risks of addiction and overdose, especially with prolonged use. An opioid overdose, often marked by slowed breathing, can cause sudden . The use of prescription opioids can have a number of side effects as well, even when taken as directed: ? Tolerance?meaning you might need to take more of the medication for the same pain relief ? Physical dependence?meaning you have symptoms of withdrawal when a medication is stopped ? Increased sensitivity to pain ? Constipation ? Nausea, vomiting, and dry mouth ? Sleepiness and dizziness ? Confusion ? Depression ? Low levels of testosterone that can result in lower sex drive, energy, and strength ? Itching and sweating RISKS ARE GREATER WITH: ? History of drug misuse, substance use disorder, or overdose ? Mental health conditions (such as depression or anxiety) ? Sleep apnea ? Older age (65 years and older) ? Avoid alcohol while taking prescription opioids. Also, unless specifically advised by your health care provider, medications to avoid include: ? Benzodiazepines (such as Xanax or Valium) ? Muscle relaxants (such as Soma or Flexeril) ? Hypnotics (such as Ambien or Lunesta) ? Other prescription opioids KNOW YOUR OPTIONS Talk to your health care provider about ways to manage your pain that don?t involve prescription opioids. Some of these options may actually work better and have fewer risks and side effects. Options may include: ? Pain relievers such as acetaminophen, ibuprofen, and naproxen ? Some medication that are also used for depression or seizures ? Physical therapy and exercise ? Cognitive behavioral therapy, a psychological, goal-directed approach, in which patients learn how to modify physical, behavioral, and emotional triggers of pain and stress. IF YOU ARE PRESCRIBED OPIOIDS FOR PAIN: ? Never take opioids in greater amounts or more often than prescribed. ? Follow up with your primary health care provider. o Work together to create a plan on how to manage your pain. o Talk about ways to help manage your pain that don?t involve prescription opioids. o Talk about any and all concerns and side effects. ? Help prevent misuse and abuse o Never sell or share prescription opioids. o Never use another person?s prescription opioids. ? Store prescription opioids in a secure place and out of reach of others (this may include visitors, children, friends, and family). ? Safely dispose of unused prescription opioids: Find your community drug take-back program or your pharmacy mail-back program, or flush them down the toilet, following guidance from the Food and Drug Administration (www.fda.gov/Drugs/Re sourcesForYou). ? Visit www.cdc.gov/drugoverd ose to learn about the risks of opioids abuse and overdose. ? If you believe y (more content not included)... Normal [facility] XR Knee - left 1 or 2 Viewso n 11-19-2023 Imaging Result: 11/18/2023 Standing AP and lateral of left knee demonstrate bone on bone patellofemoral arthritis and osteophyte formation of both lateral femoral condyle and lateral tibial plateau. Less than 50% joint space preserved. Impression: Severe osteoarthritis of left knee. Danilo Richard LEARNING CENTER INSTRUCTOR-SUPPORT CLERK [facility] XR Knee - left 1 or 2 ViewsO rdered By: Aldenesther on 11-19-2023 [facility] Healthcare Work Phone: XR Knee - left 1 or 2 Viewso n 11-18-2023 Radiology Study observation (narrative) [facility] Ambulatory Visit Summaryon 0 11-13-2023 Ambulatory Visit Summary Ambulatory Visi t Summary JESIKA CORTEZ :1950 Visit Date:11/13/2023 Ambulatory Visit Instructions Your Diagnosis Morbid obesity Bilateral primary osteoarthritis of knee Osteoarthritis of shoulders, bilateral Essential hypertension BMI 38.0-38.9,adult Non-smoker Your Care Team Attending Physician - Igor Ly DO Primary Care Physician - Igor Ly DO This Is Your Medications List Misc Prescription (Handicap Placard) Misc Prescription (PTTD ankle brace) atorvastatin (atorvastatin 40 mg Tab) cholecalciferol (Vitamin D3 2000 intl units) dorzolamide-timolol ophthalmic (dorzolamide-timolol Opth 2%-0.5% Zeynep) gabapentin (gabapentin 300 mg Cap) hydrochlorothiazide-l isinopril (hydrochlorothiazide- lisinopril 25 mg-20 mg Tab) latanoprost ophthalmic meloxicam (meloxicam 15 mg Tab) metoprolol (Metoprolol tartrate 25 mg Tab) multivitamin (Super B Complex oral tablet) tramadol (traMADOL 50 mg Tab) Procedures Performed Colonoscopy (09/20/2020), back laminectomy, cataract surgery, hysterectomy, lumbar fusion. Discharge Vitals Heart Rate (Peripheral) 69 Blood Pressure 126/82 Height 168 cm Height 66 in Weight 107.4 kg Weight 236.28 lb BMI 38.05 What to do next Scheduled Follow-Up Appointments Friday 8:30 AM EST With: Where: [address] [place] [address]- Friday 9:40 AM EST With: Igor Ly DO Where: [place] [address] [address] [place] [address]- You Need to Schedule the Following Appointments Follow Up with Igor Ly DO, [facility] When: Within 3 months Comments: 3 MONTH FOLLOWUP - schedule with [facility] to follow Where: [address] [place] [address]- Medications What How Much When Why Instructions Unchanged atorvastatin (atorvastatin 40 mg Tab) 1 Tablets By Mouth Every day Unchanged cholecalciferol (Vitamin D3 2000 intl units) 2,000 International unit By Mouth Every day Unchanged dorzolamide-timolol ophthalmic (dorzolamide-timolol Opth 2%-0.5% Zeynep) 1 Drops Both eyes Unchanged gabapentin (gabapentin 300 mg Cap) 1 Capsules By Mouth Once a day (at bedtime) Chronic pain Unchanged hydrochlorothiazide-l isinopril (hydrochlorothiazide- lisinopril 25 mg-20 mg Tab) 2 Tablets By Mouth Every day Unchanged latanoprost ophthalmic Both eyes Unchanged meloxicam (meloxicam 15 mg Tab) 1 Tablets By Mouth Every day Dorsalgia of lumbar region Unchanged metoprolol (Metoprolol tartrate 25 mg Tab) 1 Tablets By Mouth 2 times a day Unchanged Misc Prescription (Handicap Placard) See instructions Expires 2028 Unchanged Misc Prescription (PTTD ankle brace) See instructions one brace Unchanged multivitamin (Super B Complex oral tablet) Oral, 0 Refill(s) Unchanged tramadol (traMADOL 50 mg Tab) 1 Tablets By Mouth Every day as needed for for pain Primary osteoarthritis, left shoulder At bedtime Pickup at [facility]/pharmacy #[id number] Pharmacy Information [facility]/pharmacy #[id number]: [address] [place], [place] [phone] Medications and Immunizations Administered Not Given influenza virus vaccine, inactivated, Postpone due to refusal Allergies Lyrica (swelling) anabolic steroids Problems Ongoing - Any problem that you are currently receiving treatment for. Bilateral primary osteoarthritis of knee Dorsalgia of lumbar region Edema of left lower extremity Essential hypertension Heart murmur Hyperlipidemia Morbid obesity Osteoarthritis of shoulders, bilateral Patient Survey You may receive a survey via text or e-mail asking about your office visit. Please share your experience with us by completing your survey. We appreciate your feedback and thank you for choosing us for your care. Lucía [facility] Family Medicine Office/Clini c Noteon 11-13-2023 Family Medicine Office/Clinic Note Family Medicine Office/Clinic Note Chief Complaint Chronic Condition follow up HPI Staff Patient here for Chronic Condition f/u Patient is here for follow up on hypertension. How often are you checking your blood pressure? Doesn't check BP at home What are your average readings? n/a Do you have any of the following symptoms? Chest Pain? no Palpitations? no ADKINS/SOB? no Headache? no Peripheral Edema? yes bilateral lower extremities Light Headiness? no Labs: DUE Bilateral primary osteoarthritis of knee: Managed by medication. UDS: completed today Med Ag: completed today Refill request Tramdol Colol: 09/20/20, repeat in 10 years Dexa: per pt 2022[facility] Grace: 02/13/23 AMW: needs to schedule Flu: declines History of Present Illness Patient presents today for 3 month medication followup. - Patient on Tramadol chronically for her body pain, maxed out on meloxicam for arthritis. OARRS reviewed: Yes Medication Agreement updated: Yes Urine Drug Screen done: No, due today. Pill Count Done: No Today, patient states that she is doing well during the day. She states at night some pain creeps through. She denies any new falls or injuries. She denies any weakness, numbness, or tingling. Her left foot continues to be problematic, she is not using her brace for this, it needs adjusted. Review of Systems PHQ Score Initial Depression Screen Score: 0 SCORE ROS - Provider Constitutional: no fever, no chills Skin: no rash, no lesions ENMT: no ear pain, no sore throat, no congestion, no hoarseness. Respiratory: no shortness of breath, no cough, no wheezing. Cardiovascular: no chest pain, no palpitations, no edema. Gastrointestinal: no nausea, no vomiting, no diarrhea, Musculoskeletal: yes back pain, no trauma, yes arthritis pain Neurologic: no headache, no dizziness, no numbness, no weakness. Psychiatric: no sleeping problems, no irritability, no mood swings/depression. Physical Exam Vitals & Measurements HR: 69(Peripheral) BP: 126/82 SpO2: 97% HT: 66 in HT: 168 cm WT: 107.4 kg WT: 236.28 lb BMI: 38.05 General: Well developed, well nourished, in no acute distress Head: Normocephalic/atrauma tic Eyes: Pupils equal, round, and reactive to light. Sclerae normal, and extraocular movements intact Lungs: Normal respiratory effort and clear to auscultation Cardio: Regular rate and rhythm, CAMILO and normal S2, no rub Musculoskeletal: No deformity or scoliosis noted. Normal range of motion. Joints normal. No erythema, edema, effusion, or ecchymosis, bilateral knee crepitance with joint motion Extremity: No clubbing, cyanosis, edema, or deformity, with normal ROM in both upper and lower bilateral extremities Neurologic: Grossly normal Skin: No rash, petechiae, suspicious lesions Mental Status: Alert and oriented x3. Normal mood and affect Assessment/Plan 1. Morbid obesity (E66.01: Morbid (severe) obesity due to excess calories) The standard range for ages 18 and older is >=18.5 and < 25 kg/m2. Your BMI today was above this range, this falls in the overweight to obese category and there are medical benefits to weight loss. We can offer counselling, referral, and/or medical support in addressing this problem. Your BMI and weight management will be followed at subsequent visits. 2. Bilateral primary osteoarthritis of knee (M17.0: Bilateral primary osteoarthritis of knee) Controlled with meloxicam and tramadol. Continue current regimen. Patient to return in 3 months. OARRS reviewed, no conflicts noted. Due for UDS at followup. Follow with orthopedics and podiatry as needed. 3. Osteoarthritis of shoulders, bilateral (M19.011: Primary osteoarthritis, right shoulder) As per #2. 4. Essential hypertension (I10: Essential (primary) hypertension) Controlled on intake, no concerns. Patient to continue home monitoring. Continue current medications. 5. BMI 38.0-38.9,adult (Z68.38: Body mass index [BMI] 38.0-38.9, adult) The standard range for ages 18 and older is >=18.5 and < 25 kg/m2. Your BMI today was above this range, this falls in the overweight to obese category and there are medical benefits to weight loss. We can offer counselling, referral, and/or medical support in addressing this problem. Your BMI and weight management will be followed at subsequent visits. Ordered: Body Mass Index (BMI) documented 3008F Depression Screening Negative 3352F Influenza immunization status assessed 1030F Most recent diastolic blood pressure 80-89 mm Hg 3079F Patient screen for fall risk: no falls in last year or 1 fall with no injury in last year 1101F Systolic BP <130 mm Hg (Most Recent) 3074F 6. Non-smoker (Z78.9: Other specified health status) Stable. Ordered: Current tobacco non-user 1036F Orders: tramadol, 50 mg = 1 tab(s), Oral, Daily, PRN for pain, At bedtime, # 90 tab(s), Refills(s) 0, Pharmacy: [facility]/pharmacy #[id number], 168, cm, 11/13/23 10:07:00 EDT, Height/Length Dosing, 107.4, kg, (more content not included)... Normal [facility] Comment on above: Result Comment: Elec tronically Signed By: Igor Ly DO\.br\Date and Time Signed: 11/13/23 10:29 EDT Pre-Visit Planningon 024 Pre-Visit Planning Pre-Visit Planning From: Hiral Zhou To: Igor Ly DO; Sent: 11/12/2023 09:55:01 EDT Subject: Pre-Visit Planning Due Date/Time: 11/12/2023 09:54:00 EDT Caller Name: JESIKA CORTEZ; Caller Number: H Hi Dr. Ly. During a pre-visit planning chart review, I noted the following medications documented in the medical record: latanoprost, timolol, and dorzolamide-timolol ophthalmic. 05/12/2023 Office Visit Note: HPI Staff- History: ocular HTN. *No Ophthalmology Consult Notes located in [facility]. Based on your medical judgement, can you please indicate what condition indicates the necessity of the medications/treatment ? I can update the Chronic Problem List with your response if you would like. -Ocular Hypertension -Additional comments: In responding to this request, please exercise your independent professional judgement. The fact that a question is asked does not imply that any particular answer is desired or expected. If you have any questions, please feel free to contact me at extension [phone]. Thank you! Hiral Zhou LPN Clinical Video Photographer [address] [address] Extension: [phone] [email or web address] From: Igor Ly DO To: Hiral Zhou; Sent: 11/12/2023 12:41:22 EDT Subject: RE: Pre-Visit Planning Caller Name: DANAROSIEA Stefan; Caller Number: H I need to discuss this with patient at her visit to get more information before we add the diagnosis. Thanks! Normal [facility] Pre-Visit Planning Pre-Visit Planning From: Hiral Zhou To: Igor Ly DO; Sent: 11/12/2023 09:46:57 EDT Subject: Pre-Visit Planning Due Date/Time: 11/12/2023 09:46:00 EDT Caller Name: DANAJESIKA; Caller Number: H Va Dr. Ly. During a pre-visit planning chart review, I noted the following documentation in the medical record indicates that this patient had BMI of 38.76 on 08/19/2023 and a diagnosis of Bilateral primary osteoarthritis of knee, Essential hypertension, and Hyperlipidemia noted on Current Problem List. If BMI during this current visit is greater than 35: Based on your medical judgment, can you further clarify the following? I can update the Chronic Problem List with your response if you would like. -Morbid obesity (please also include additional diagnosis to reflect current BMI) -Class 2 severe obesity with serious comorbidity in adult (please also include additional diagnosis to reflect current BMI) -Other (please specify): In responding to this request, please exercise your independent professional judgment. The fact that a question is asked does not imply that any particular answer is desired or expected. If you have any questions, please feel free to contact me per TEAMS or . Thank you! Hiral Zhou LPN Clinical Video Photographer [place] [address] TEAMS or [email or web address] From: Igor Ly DO To: Hiral Zhou; Sent: 11/12/2023 12:40:47 EDT Subject: RE: Pre-Visit Planning Caller Name: JESIKA CORTEZ; Caller Number: H Morbid obesity is an acceptable diagnosis. Thanks! Normal [facility] No Panel Informationon 10-20 Danilo Richard NP 10/21/2023 9:49 AM L Inj/Asp: L knee on 10/21/2023 9:47 AM Indications: pain Details: anterolateral approach Medications: 40 mg methylPREDNISolone acetate 40 MG/ML Site was cleaned with isopropyl alcohol Consent was given by the patient. [facility] No Panel Informationon 10-13 Danilo Richard NP 10/14/2023 12:55 PM L Inj/Asp: R knee on 10/14/2023 12:54 PM Indications: pain Details: 21 G needle, anterolateral approach Medications: 40 mg methylPREDNISolone acetate 40 MG/ML Outcome: tolerated well, no immediate complications Site cleaned with isopropyl alcohol Procedure, treatment alternatives, risks and benefits explained, specific risks discussed. Consent was given by the patient. [facility] Ambulatory Visit Summaryon 0 08-19-2023 Ambulatory Visit Summary Ambulatory Visi t Summary ROSIE CORTEZPatricia Aviles :1950 Visit Date:08/19/2023 Ambulatory Visit Instructions Your Diagnosis Bilateral primary osteoarthritis of knee Osteoarthritis of shoulders, bilateral Essential hypertension BMI 38.0-38.9,adult Non-smoker Your Care Team Attending Physician - Igor Ly DO Primary Care Physician - Igor Ly DO This Is Your Medications List Misc Prescription (Handicap Placard) Contact prescribing physician if questions or concerns Misc Prescription (PTTD ankle brace) atorvastatin (atorvastatin 40 mg Tab) cholecalciferol (Vitamin D3 2000 intl units) dorzolamide-timolol ophthalmic (dorzolamide-timolol Opth 2%-0.5% Zeynep) gabapentin (gabapentin 300 mg Cap) hydrochlorothiazide-l isinopril (hydrochlorothiazide- lisinopril 25 mg-20 mg Tab) latanoprost ophthalmic meloxicam (meloxicam 15 mg Tab) metoprolol (Metoprolol tartrate 25 mg Tab) multivitamin (Super B Complex oral tablet) tramadol (traMADOL 50 mg Tab) Procedures Performed Colonoscopy (09/20/2020), back laminectomy, cataract surgery, hysterectomy, lumbar fusion. Discharge Vitals Heart Rate (Peripheral) 61 Blood Pressure 124/78 Height 168 cm Height 66 in Weight 109.4 kg Weight 240.68 lb BMI 38.76 What to do next You Need to Schedule the Following Appointments Follow Up with Link Igor [facility] When: Within 3 months Comments: Controlled Medication Followup Where: [address] [place] [address]- Medications What How Much When Why Instructions New Misc Prescription (Handicap Placard) See instructions Expires 2028 Printed Prescription Unchanged atorvastatin (atorvastatin 40 mg Tab) 1 Tablets By Mouth Every day Contact prescribing physician if questions or concerns Unchanged cholecalciferol (Vitamin D3 2000 intl units) 2,000 International unit By Mouth Every day Contact prescribing physician if questions or concerns Unchanged dorzolamide-timolol ophthalmic (dorzolamide-timolol Opth 2%-0.5% Zeynep) 1 Drops Both eyes Contact prescribing physician if questions or concerns Unchanged gabapentin (gabapentin 300 mg Cap) 1 Capsules By Mouth Once a day (at bedtime) Chronic pain Contact prescribing physician if questions or concerns Unchanged hydrochlorothiazide-l isinopril (hydrochlorothiazide- lisinopril 25 mg-20 mg Tab) 2 Tablets By Mouth Every day Contact prescribing physician if questions or concerns Unchanged latanoprost ophthalmic Both eyes Contact prescribing physician if questions or concerns Unchanged meloxicam (meloxicam 15 mg Tab) 1 Tablets By Mouth Every day Dorsalgia of lumbar region Contact prescribing physician if questions or concerns Unchanged metoprolol (Metoprolol tartrate 25 mg Tab) 1 Tablets By Mouth 2 times a day Contact prescribing physician if questions or concerns Unchanged Misc Prescription (PTTD ankle brace) See instructions one brace Contact prescribing physician if questions or concerns Unchanged multivitamin (Super B Complex oral tablet) Oral, 0 Refill(s) Contact prescribing physician if questions or concerns Unchanged tramadol (traMADOL 50 mg Tab) 1 Tablets By Mouth Every day as needed for for pain Primary osteoarthritis, left shoulder At bedtime Contact prescribing physician if questions or concerns Allergies Lyrica (swelling) anabolic steroids Problems Ongoing - Any problem that you are currently receiving treatment for. Bilateral primary osteoarthritis of knee Dorsalgia of lumbar region Edema of left lower extremity Essential hypertension Heart murmur Hyperlipidemia Obesity Osteoarthritis of shoulders, bilateral Patient Survey You may receive a survey via text or e-mail asking about your office visit. Please share your experience with us by completing your survey. We appreciate your feedback and thank you for choosing us for your care. Normal [facility] Family Medicine Office/Clini c Noteon 08-19-2023 Family Medicine Office/Clinic Note Family Medicine Office/Clinic Note Chief Complaint Chronic Condition f/u HPI Staff Patient here for Chronic Condition f/u Patient is here for follow up on hypertension. How often are you checking your blood pressure? Doesn't check BP at home What are your average readings? N/A, Not checking at home Do you have any of the following symptoms? Chest Pain? no Palpitations? no ADKINS/SOB? no Headache? no Peripheral Edema? yes left ankle Light Headiness? no Labs: Due Bilateral primary osteoarthritis of knee: Managed well with medication. Patient notes that she has been taking Naproxen every night as well and would like to know if that is acceptable with her other medication. Patient notes knee's are stiff, but doesn't have pain. That her back and hip are doing well. Med Agreement: UTD. UDS: Patient is going to attempt to completed today. Patient notes she stopped taking Gabapentin and pain in shoulders started again, so she restarted Gabapentin, and now pain has resolved. - Patient would like to discuss a prescription for Handicap Placard and refill for Tramadol [place]: 09/20/20, repeat in 10 years Dexa: per [facility] 2022 [place]: 02/13/23 AMW: needs to schedule History of Present Illness Patient presents today for 3 month medication followup. - Patient on Tramadol chronically for her body pain, maxed out on meloxicam for arthritis. OARRS reviewed: Yes Medication Agreement updated: Yes Urine Drug Screen done: No Pill Count Done: No Today, patient states that she is doing well during the day. She states at night some pain creeps through. She denies any new falls or injuries. She denies any weakness, numbness, or tingling. Her left foot continues to be problematic, she is not using her brace for this, it needs adjusted. Review of Systems PHQ Score Initial Depression Screen Score: 0 SCORE ROS - Provider Constitutional: no fever, no chills Skin: no rash, no lesions ENMT: no ear pain, no sore throat, no congestion, no hoarseness. Respiratory: no shortness of breath, no cough, no wheezing. Cardiovascular: no chest pain, no palpitations, no edema. Gastrointestinal: no nausea, no vomiting, no diarrhea, Musculoskeletal: yes back pain, no trauma. Neurologic: no headache, no dizziness, no numbness, no weakness. Psychiatric: no sleeping problems, no irritability, no mood swings/depression. Physical Exam Vitals & Measurements HR: 61(Peripheral) BP: 124/78 SpO2: 97% HT: 66 in HT: 168 cm WT: 109.4 kg WT: 240.68 lb BMI: 38.76 General: Well developed, well nourished, in no acute distress Head: Normocephalic/atrauma tic Eyes: Pupils equal, round, and reactive to light. Sclerae normal, and extraocular movements intact Lungs: Normal respiratory effort and clear to auscultation Cardio: Regular rate and rhythm, CAMILO and normal S2, no murmur, no rub Musculoskeletal: No deformity or scoliosis noted. Normal range of motion. Joints normal. No erythema, edema, effusion, or ecchymosis Extremity: No clubbing, cyanosis, edema, or deformity, with normal ROM in both upper and lower bilateral extremities Neurologic: Grossly normal Skin: No rash, petechiae, suspicious lesions Mental Status: Alert and oriented x3. Normal mood and affect Assessment/Plan 1. Bilateral primary osteoarthritis of knee (M17.0: Bilateral primary osteoarthritis of knee) Controlled with meloxicam and tramadol. Continue current regimen. Patient to return in 3 months. OARRS reviewed, no conflicts noted. Due for UDS at followup. Follow with orthopedics and podiatry as needed. 2. Osteoarthritis of shoulders, bilateral (M19.011: Primary osteoarthritis, right shoulder) As per #1. 3. Essential hypertension (I10: Essential (primary) hypertension) Controlled on intake, no concerns. Patient to continue home monitoring. Continue current medications. 4. BMI 38.0-38.9,adult (Z68.38: Body mass index [BMI] 38.0-38.9, adult) The standard range for ages 18 and older is >=18.5 and < 25 kg/m2. Your BMI today was above this range, this falls in the overweight to obese category and there are medical benefits to weight loss. We can offer counselling, referral, and/or medical support in addressing this problem. Your BMI and weight management will be followed at subsequent visits. Ordered: Body Mass Index (BMI) documented 3008F Depression Screening Negative 3352F Influenza immunization status assessed 1030F Most recent diastolic blood pressure <80 mm Hg 3078F Patient screen for fall risk: no falls in last year or 1 fall with no injury in last year 1101F Systolic BP <130 mm Hg (Most Recent) 3074F 5. Non-smoker (Z78.9: Other specified health status) Stable. Ordered: Current tobacco non-user 1036F Orders: gabapentin, 300 mg = 1 cap(s), Oral, Once a day (at bedtime), # 180 EA, Refills(s) 3, Pharmacy: [facility], 168, cm, 05/27/23 11:56:00 EDT, Height/Length Dosing, 108.6, kg, 05/27/23 11:56:00 EDT, Weight Dosing Misc Pre (more content not included)... Normal [facility] Comment on above: Result Comment: Elec tronically Signed By: Igor Ly DO\.br\Date and Time Signed: 08/19/23 11:42 EDT Ambulatory Visit Summaryon 0 07-02-2023 Ambulatory Visit Summary JESIKA CORTEZ :1950 Visit Date:07/02/2023 Ambulatory Visit Instructions Your Diagnosis BMI 38.0-38.9,adult Your Care Team Attending Physician - FREDO SANTANA Primary Care Physician - Igor Ly DO This Is Your Medications List Misc Prescription (PTTD ankle brace) atorvastatin (atorvastatin 40 mg Tab) baclofen (baclofen 5 mg oral tablet) cholecalciferol (Vitamin D3 2000 intl units) dorzolamide-timolol ophthalmic (dorzolamide-timolol Opth 2%-0.5% Zeynep) furosemide (Lasix 20 mg Tab) gabapentin (gabapentin 300 mg Cap) hydrochlorothiazide-l isinopril (hydrochlorothiazide- lisinopril 25 mg-20 mg Tab) latanoprost ophthalmic meloxicam (meloxicam 15 mg Tab) metoprolol (Metoprolol tartrate 25 mg Tab) multivitamin (Super B Complex oral tablet) tramadol (traMADOL 50 mg Tab) Procedures Performed Colonoscopy (09/20/2020), back laminectomy, cataract surgery, hysterectomy, lumbar fusion. Discharge Vitals Temperature (Temporal Artery) 37 ?C Heart Rate (Peripheral) 59 Respiratory Rate 15 Blood Pressure 138/72 Height 168 cm Height 66 in Weight 109.4 kg Weight 240.68 lb BMI 38.76 What to do next Scheduled Follow-Up Appointments Friday 10:40 AM EDT With: Igor Ly DO Where: [facility] [place] Normal [facility] Family Medicine Office/Clini c Noteon 07-02-2023 Family Medicine Office/Clinic Note HPI Staff jesika Cortez 72 years old here for an acute visit for left leg and foot swollen complaints of _always has had some swelling in left leg and now noticed it being really bad since Friday has always has had some swelling and no notices it being really bad since Friday tried ibuprofen ice and state it feels strange when you touch it 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 She generally sees Dr. Ly, however, he is not available today. She reports approximately 25 years ago she had lumbar spine surgery which left her with left foot drop. She has some chronic swelling in the LLE, however, since starting gabapentin a month ago, she feels like her legs are very heavy, and her left ankle has been more swollen. She has a LLE brace but it is very difficult to wear. She has an appointment with Muna'april to get the brace adjusted this week. It appears her LLE edema is chronic in nature, and is acutely exacerbated today. Otherwise, Jesika is doing good and has no additional concerns today. Staff HPI reviewed and accurate. Review of Systems PHQ Score Initial Depression Screen Score: 0 SCORE Physical Exam Vitals & Measurements T: 37 ?C(Temporal Artery) HR: 59(Peripheral) RR: 15 BP: 138/72 SpO2: 97% HT: 66 in HT: 168 cm WT: 109.4 kg WT: 240.68 lb BMI: 38.76 L. ankle: +2 pitting edema, skin is tight/shiny, pink without erythema. Ankle measured 11 inches. L. calf: non-pitting edema, skin is tight. Calf measured 19 inches. Good capillary refill. R. ankle: measured 9 inches. R. calf: measured 18 inches. Assessment/Plan 1. Edema of left lower extremity (R60.0: Localized edema) Since patient believes edema started with use of gabapentin, she was advised to decrease the dose to once daily and observe for improvement. She was started on a 5 day course of Lasix to attempt to decrease her edema and discomfort. I reviewed previous records, including an echocardiogram from August,. She was advised to follow up with ortho and her PCP. 2. Obesity (E66.9: Obesity, unspecified) Continue to monitor for now. PCP managing 3. BMI 38.0-38.9,adult (Z68.38: Body mass index [BMI] 38.0-38.9, adult) see 2 Ordered: furosemide, 20 mg = 1 tab(s), Oral, Daily, i tab po qd x 5 days, # 5 tab(s), Refills(s) 0, Pharmacy: [facility]/pharmacy #[id number], 168, cm, 07/02/23 8:22:00 EDT, Height/Length Dosing, 109.4, kg, 07/02/23 8:40:00 EDT, Weight Dosing 1126F Pain severity quantified; no pain present Body Mass Index (BMI) documented 3008F Current tobacco non-user 1036F Depression Screening Negative 3352F Influenza immunization status assessed 1030F Most recent diastolic blood pressure <80 mm Hg 3078F Patient screen for fall risk: no falls in last year or 1 fall with no injury in last year 1101F Systolic BP 130-139 mm Hg (Most Recent) 3075F Follow-up No qualifying data available Patient Education Edema Problem List/Past Medical History Ongoing Bilateral primary osteoarthritis of knee Dorsalgia of lumbar region Edema of left lower extremity Essential hypertension Heart murmur Hyperlipidemia Obesity Osteoarthritis of shoulders, bilateral Historical No qualifying data Procedure/Surgical History Colonoscopy (09/20/2020), back laminectomy, cataract surgery, hysterectomy, lumbar fusion. Medications atorvastatin 40 mg Tab, 40 mg= 1 tab(s), Oral, Daily, 3 refills baclofen 5 mg oral tablet, 5 mg= 1 tab(s), Oral, TID, PRN dorzolamide-timolol Opth 2%-0.5% Zeynep, 1 drop(s), Eye-Both gabapentin 300 mg Cap, 300 mg= 1 cap(s), Oral, BID, 3 refills hydrochlorothiazide-l isinopril 25 mg-20 mg Tab, 2 tab(s), Oral, Daily, 3 refills Lasix 20 mg Tab, 20 mg= 1 tab(s), Oral, Daily latanoprost ophthalmic, Eye-Both meloxicam 15 mg Tab, 15 mg= 1 tab(s), Oral, Daily, 3 refills Metoprolol tartrate 25 mg Tab, 25 mg= 1 tab(s), Oral, BID, 3 refills PTTD ankle brace, See Instructions Super B Complex oral tablet traMADOL 50 mg Tab, 50 mg= 1 tab(s), Oral, Daily, PRN Vitamin D3 2000 intl units, 2000 International_Unit, Oral, Daily Allergies Lyrica (swelling) anabolic steroids Social History Alcohol - Denies Alcohol Use, 02/09/2017 Substance Abuse - Denies Substance Abuse, 02/09/2017 Tobacco - Denies Tobacco Use, 02/09/2017 Never (less than 100 in lifetime) Tobacco Use:. Never Smokeless Tobacco Use:. Household tobacco concerns: No., 07/02/2023 Family History Congenital heart disease: Father. Primary malignant neoplasm of colon: Mother and Grandparent. Primary malignant neoplasm of pancreas: Brother. Immunizations Vaccine Date Status Comments influenza virus vaccine, inactivated - Not Given Postpone due to refusal influenza virus vaccine, inactivated - Not Given Postpone due to re (more content not included)... Normal [facility] Comment on above: Result Comment: Elec tronically Signed By: MARCELINA SAMANIEGO, FREDO\.br\Date and Time Signed: 07/02/23 09:28 EDT Patient Educationon 07-02-19 24 Patient Education Obstetrics and Gynecology Edema Edema is an abnormal buildup of fluids in the body tissues and under the skin. Swelling of the legs, feet, and ankles is a common symptom that becomes more likely as you get older. Swelling is also common in looser tissues, such as around the eyes. Pressing on the area may make a temporary dent in your skin (pitting edema). This fluid may also accumulate in your lungs (pulmonary edema). There are many possible causes of edema. Eating too much salt (sodium) and being on your feet or sitting for a long time can cause edema in your legs, feet, and ankles. Common causes of edema include: ? Certain medical conditions, such as heart failure, liver or kidney disease, and cancer. ? Weak leg blood vessels. ? An injury. ? . ? Medicines. ? Being obese. ? Low protein levels in the blood. Hot weather may make edema worse. Edema is usually painless. Your skin may look swollen or shiny. Follow these instructions at home: Medicines ? Take [id number] and prescription medicines only as told by your health care provider. ? Your health care provider may prescribe a medicine to help your body get rid of extra water (diuretic). Take this medicine if you are told to take it. Eating and drinking ? Eat a low-salt (low-sodium) diet to reduce fluid as told by your health care provider. Sometimes, eating less salt may reduce swelling. ? Depending on the cause of your swelling, you may need to limit how much fluid you drink (fluid restriction). General instructions ? Raise (elevate) the injured area above the level of your heart while you are sitting or lying down. ? Do not sit still or stand for long periods of time. ? Do not wear tight clothing. Do not wear garters on your upper legs. ? Exercise your legs to get your circulation going. This helps to move the fluid back into your blood vessels, and it may help the swelling go down. ? Wear compression stockings as told by your health care provider. These stockings help to prevent blood clots and reduce swelling in your legs. It is important that these are the correct size. These stockings should be prescribed by your health care provider to prevent possible injuries. ? If elastic bandages or wraps are recommended, use them as told by your health care provider. Contact a health care provider if: ? Your edema does not get better with treatment. ? You have heart, liver, or kidney disease and have symptoms of edema. ? You have sudden and unexplained weight gain. Get help right away if: ? You develop shortness of breath or chest pain. ? You cannot breathe when you lie down. ? You develop pain, redness, or warmth in the swollen areas. ? You have heart, liver, or kidney disease and suddenly get edema. ? You have a fever and your symptoms suddenly get worse. These symptoms may be an emergency. Get help right away. Call 911. ? Do not wait to see if the symptoms will go away. ? Do not drive yourself to the hospital. Summary ? Edema is an abnormal buildup of fluids in the body tissues and under the skin. ? Eating too much salt (sodium)and being on your feet or sitting for a long time can cause edema in your legs, feet, and ankles. ? Raise (elevate) the injured area above the level of your heart while you are sitting or lying down. ? Follow your health care provider's instructions about diet and how much fluid you can drink. This information is not intended to replace advice given to you by your health care provider. Make sure you discuss any questions you have with your health care provider. Document Revised: 10/08/2021 Document Reviewed: 10/08/2021 [employer] Patient Education ? 2022 [employer] [facility] Ambulatory Visit Summaryon 0 05-27-2023 Ambulatory Visit Summary JESIKA CORTEZ Stefan :1950 Visit Date:05/27/2023 Ambulatory Visit Instructions Your Diagnosis Bilateral primary osteoarthritis of knee Osteoarthritis of shoulders, bilateral BMI 38.0-38.9,adult Non-smoker Essential hypertension Hyperlipidemia Your Care Team Attending Physician - Igor Ly DO Primary Care Physician - Igor Ly DO This Is Your Medications List [facility] Prescription (PTTD ankle brace) atorvastatin (atorvastatin 40 mg Tab) baclofen (baclofen 5 mg oral tablet) cholecalciferol (Vitamin D3 2000 intl units) dorzolamide-timolol ophthalmic (dorzolamide-timolol Opth 2%-0.5% Zeynep) gabapentin (gabapentin 300 mg Cap) hydrochlorothiazide-l isinopril (hydrochlorothiazide- lisinopril 25 mg-20 mg Tab) latanoprost ophthalmic meloxicam (meloxicam 15 mg Tab) metoprolol (Metoprolol tartrate 25 mg Tab) multivitamin (Super B Complex oral tablet) tramadol (traMADOL 50 mg Tab) tramadol (traMADOL 50 mg Tab) Procedures Performed Colonoscopy (09/20/2020), back laminectomy, cataract surgery, hysterectomy, lumbar fusion. Discharge Vitals Heart Rate (Peripheral) 61 Blood Pressure 124/76 Height 168 cm Height 66 in Weight 108.6 kg Weight 238.92 lb BMI 38.48 What to do next You Need to Schedule the Following Appointments Follow Up with Igor Ly DO, FAM When: Within 3 months Comments: Controlled Medication Followup Where: [address] [place] [address]- Medications What How Much When Why Instructions New multivitamin (Super B Complex oral tablet) Oral, 0 Refill(s) New tramadol (traMADOL 50 mg Tab) 1 Tablets By Mouth Every day as needed for for pain Primary osteoarthritis, left shoulder Dorsalgia of lumbar region At bedtime Pickup at [facility]/pharmacy #[id number] New tramadol (traMADOL 50 mg Tab) 1 Tablets By Mouth Every day as needed for for pain Primary osteoarthritis, left shoulder At bedtime Pickup at [facility] Changed hydrochlorothiazide-l isinopril (hydrochlorothiazide- lisinopril 25 mg-20 mg Tab) 2 Tablets By Mouth Every day Pickup at [facility] Unchanged atorvastatin (atorvastatin 40 mg Tab) 1 Tablets By Mouth Every day Pickup at [facility] Unchanged baclofen (baclofen 5 mg oral tablet) 1 Tablets By Mouth 3 times a day as needed for Pain Unchanged cholecalciferol (Vitamin D3 2000 intl units) 2,000 International unit By Mouth Every day Unchanged dorzolamide-timolol ophthalmic (dorzolamide-timolol Opth 2%-0.5% Zeynep) 1 Drops Both eyes Unchanged gabapentin (gabapentin 300 mg Cap) 1 Capsules By Mouth 3 times a day Chronic pain Unchanged latanoprost ophthalmic Both eyes Unchanged meloxicam (meloxicam 15 mg Tab) 1 Tablets By Mouth Every day Dorsalgia of lumbar region Pickup at [facility] Unchanged metoprolol (Metoprolol tartrate 25 mg Tab) 1 Tablets By Mouth 2 times a day Pickup at [facility] Unchanged Misc Prescription (PTTD ankle brace) See instructions one brace Pharmacy Information [facility]: [address] [facility] EMELI Hernandez [phone] [facility]/pharmacy #[id number]: [address] [place], [place] [phone] Medications and Immunizations Administered Not Given influenza virus vaccine, inactivated, Postpone due to refusal Allergies Lyrica (swelling) anabolic steroids Problems Ongoing - Any problem that you are currently receiving treatment for. Dorsalgia of lumbar region Essential hypertension Heart murmur Hyperlipidemia Patient Survey You may receive a survey via text or e-mail asking about your office visit. Please share your experience with us by completing your survey. We appreciate your feedback and thank you for choosing us for your care. Normal [facility] Family Medicine Office/Clini c Noteon 05-27-2023 Family Medicine Office/Clinic Note Chief Complaint 2 week f/u HPI Staff Patient here for 2 week f/u - Patient here for medication refills. Patient requesting Lisinopril-HCTZ, Metoprolol, Meloxicam, Atorvastatin and Tramadol (patient was requesting a few of her Tramadol to be sent to [facility] and a bigger order sent to [facility]). Patient gets Gabapentin from [facility]. Patient is not sure if she should still be taking Baclofen. - Patient notes medication is working well. [place]: 09/20/20, repeat in 10 years Dexa: per [facility] 2022 [place]: 02/13/23 AMW: needs to schedule Flu: declines History of Present Illness Patient presents today for 2 week followup on back pain after restarting Tramadol. Patient states that the meloxicam is helping immensely with the pain in her joints. She states that she is just using the Tramadol at night. She denies any side effects from the medications. She is using the gabapentin as well sparingly. She states she has some aches in the AM, but she is getting around much better and she is getting out. She does not need to use the Baclofen. She is waking up with some pain in the night, and she states that she is getting decent sleep. She does not need a refill of this at this time. Review of Systems ROS - Provider Constitutional: no fever, no chills Skin: no rash, no lesions ENMT: no ear pain, no sore throat, no congestion, no hoarseness. Respiratory: no shortness of breath, no cough, no wheezing. Cardiovascular: no chest pain, no palpitations, no edema. Gastrointestinal: no nausea, no vomiting, no diarrhea, Musculoskeletal: yes back pain, no trauma. Neurologic: no headache, no dizziness, no numbness, no weakness. Psychiatric: no sleeping problems, no irritability, no mood swings/depression. Physical Exam Vitals & Measurements HR: 61(Peripheral) BP: 124/76 SpO2: 98% HT: 66 in HT: 168 cm WT: 108.6 kg WT: 238.92 lb BMI: 38.48 General: Well developed, well nourished, in no acute distress Head: Normocephalic/atrauma tic Eyes: Pupils equal, round, and reactive to light. Sclerae normal, and extraocular movements intact Lungs: Normal respiratory effort and clear to auscultation Cardio: Regular rate and rhythm, CAMILO and normal S2, no murmur, no rub Musculoskeletal: No deformity or scoliosis noted. Normal range of motion. Joints normal. No erythema, edema, effusion, or ecchymosis Extremity: No clubbing, cyanosis, edema, or deformity, with normal ROM in both upper and lower bilateral extremities Neurologic: Grossly normal Skin: No rash, petechiae, suspicious lesions Mental Status: Alert and oriented x3. Normal mood and affect Assessment/Plan 1. Bilateral primary osteoarthritis of knee (M17.0: Bilateral primary osteoarthritis of knee) Addition of Meloxicam and Tramadol seem to have made a great deal of difference for her for management of her pain and arthritis. Will continue on this current course. She needs refills of her medications today, sent for her. OARRS reviewed, no conflicts noted. Recheck in 3 months. 2. Osteoarthritis of shoulders, bilateral (M19.011: Primary osteoarthritis, right shoulder) As per #1 3. Essential hypertension (I10: Essential (primary) hypertension) Well controlled at this time. Refilled antihypertensives. Recheck at followup as above. 4. Hyperlipidemia (E78.5: Hyperlipidemia, unspecified) Well controlled on last labs. Refilled statin. Recheck at followup as above. 5. BMI 38.0-38.9,adult (Z68.38: Body mass index [BMI] 38.0-38.9, adult) The standard range for ages 18 and older is >=18.5 and < 25 kg/m2. Your BMI today was above this range, this falls in the overweight to obese category and there are medical benefits to weight loss. We can offer counselling, referral, and/or medical support in addressing this problem. Your BMI and weight management will be followed at subsequent visits. Ordered: Body Mass Index (BMI) documented 3008F Current tobacco non-user 1036F Depression Screening Negative 3352F Influenza immunization status assessed 1030F Most recent diastolic blood pressure <80 mm Hg 3078F Patient screen for fall risk: no falls in last year or 1 fall with no injury in last year 1101F Systolic BP <130 mm Hg (Most Recent) 3074F 6. Non-smoker (Z78.9: Other specified health status) Stable. Orders: atorvastatin, 40 mg = 1 tab(s), Oral, Daily, # 90 tab(s), Refills(s) 3, Pharmacy: [facility], 168, cm, 05/27/23 11:56:00 EDT, Height/Length Dosing, 108.6, kg, 05/27/23 11:56:00 EDT, Weight Dosing hydrochlorothiazide-l isinopril, 2 tab(s), Oral, Daily, 180 tab(s), Refill(s) 3, [facility], 168, cm, 05/27/23 11:56:00 EDT, Height/Length Dosing, 108.6, kg, 05/27/23 11:56:00 EDT, Weight Dosing meloxicam, 15 mg = 1 tab(s), Oral, Daily, # 90 tab(s), Refills(s) 3, Pharmacy: [facility], 168, cm, 05/27/23 11:56:00 EDT, Height/Length Dosing, 108.6, kg, 05/27/23 11:56:00 EDT, Weight Dosing metoprolol, 25 mg = 1 tab(s), Oral, BI (more content not included)... Normal [facility] Comment on above: Result Comment: Elec trojohn paulally Signed By: Igor Ly DO.michael\Date and Time Signed: 05/27/23 15:14 EDT Patient Educationon 05-27-19 Patient Education Orthopedics Osteoarthritis Osteoarthritis is a type of arthritis. It refers to joint pain or joint disease. Osteoarthritis affects tissue that covers the ends of bones in joints (cartilage). Cartilage acts as a cushion between the bones and helps them move smoothly. Osteoarthritis occurs when cartilage in the joints gets worn down. Osteoarthritis is sometimes called wear and tear arthritis. Osteoarthritis is the most common form of arthritis. It often occurs in older people. It is a condition that gets worse over time. The joints most often affected by this condition are in the fingers, toes, hips, knees, and spine, including the neck and lower back. What are the causes? This condition is caused by the wearing down of cartilage that covers the ends of bones. What increases the risk? The following factors may make you more likely to develop this condition: ? Being age 50 or older. ? Obesity. ? Overuse of joints. ? Past injury of a joint. ? Past surgery on a joint. ? Family history of osteoarthritis. What are the signs or symptoms? The main symptoms of this condition are pain, swelling, and stiffness in the joint. Other symptoms may include: ? An enlarged joint. ? More pain and further damage caused by small pieces of bone or cartilage that break off and float inside of the joint. ? Small deposits of bone (osteophytes) that grow on the edges of the joint. ? A grating or scraping feeling inside the joint when you move it. ? Popping or creaking sounds when you move. ? Difficulty walking or exercising. ? An inability to green building energy engineer items, twist your hand(s), or control the movements of your hands and fingers. How is this diagnosed? This condition may be diagnosed based on: ? Your medical history. ? A physical exam. ? Your symptoms. ? X-rays of the affected joint(s). ? Blood tests to rule out other types of arthritis. How is this treated? There is no cure for this condition, but treatment can help control pain and improve joint function. Treatment may include a combination of therapies, such as: ? Pain relief techniques, such as: ? Applying heat and cold to the joint. ? Massage. ? A form of talk therapy called cognitive behavioral therapy (CBT). This therapy helps you set goals and follow up on the changes that you make. ? Medicines for pain and inflammation. The medicines can be taken by mouth or applied to the skin. They include: ? NSAIDs, such as ibuprofen. ? Prescription medicines. ? Strong anti-inflammatory medicines (corticosteroids). ? Certain nutritional supplements. ? A prescribed exercise program. You may work with a physical therapist. ? Assistive devices, such as a brace, wrap, splint, specialized glove, or cane. ? A weight control plan. ? Surgery, such as: ? An osteotomy. This is done to reposition the bones and relieve pain or to remove loose pieces of bone and cartilage. ? Joint replacement surgery. You may need this surgery if you have advanced osteoarthritis. Follow these instructions at home: Activity ? Rest your affected joints as told by your health care provider. ? Exercise as told by your health care provider. He or she may recommend specific types of exercise, such as: ? Strengthening exercises. These are done to strengthen the muscles that support joints affected by arthritis. ? Aerobic activities. These are exercises, such as brisk walking or water aerobics, that increase your heart rate. ? Yufih-tj-uplhrd activities. These help your joints move more easily. ? Balance and agility exercises. Managing pain, stiffness, and swelling ? If directed, apply heat to the affected area as often as told by your health care provider. Use the heat source that your health care provider recommends, such as a moist heat pack or a heating pad. ? If you have a removable assistive device, remove it as told by your health care provider. ? Place a towel between your skin and the heat source. If your health care provider tells you to keep the assistive device on while you apply heat, place a towel between the assistive device and the heat source. ? Leave the heat on for 20?30 minutes. ? Remove the heat if your skin turns bright red. This is especially important if you are unable to feel pain, heat, or cold. You may have a greater risk of getting burned. ? If directed, put ice on the affected area. To do this: ? If you have a removable assistive device, remove it as told by your health care provider. ? Put ice in a plastic bag. ? Place a towel between your skin and the bag. If your health care provider tells you to keep the assistive device on during icing, place a towel between the assistive device and the bag. ? Leave the ice on for 20 minutes, 2?3 times a day. ? Move your fingers or toes often to reduce stiffness and swelling. ? Raise (elevate) the injured area above the (more content not included)... Normal [facility] Ambulatory Visit Summaryon 0 05-12-2023 Ambulatory Visit Summary JESIKA CORTEZ :1950 Visit Date:05/12/2023 Ambulatory Visit Instructions Your Diagnosis Dorsalgia of lumbar region Heart murmur Essential hypertension Hyperlipidemia BMI 39.0-39.9,adult Non-smoker Your Care Team Attending Physician - Igor Ly DO Primary Care Physician - Igor Ly DO This Is Your Medications List [facility] Prescription (PTTD ankle brace) atorvastatin (atorvastatin 40 mg Tab) baclofen (baclofen 5 mg oral tablet) cholecalciferol (Vitamin D3 2000 intl units) dorzolamide-timolol ophthalmic (dorzolamide-timolol Opth 2%-0.5% Zeynep) gabapentin (gabapentin 300 mg Cap) hydrochlorothiazide-l isinopril (hydrochlorothiazide- lisinopril 25 mg-20 mg Tab) latanoprost ophthalmic meloxicam (meloxicam 15 mg Tab) metoprolol (Metoprolol tartrate 25 mg Tab) [Image Removed: STOP]Stop taking these medications naproxen (Naprosyn 500 mg Tab) Procedures Performed Colonoscopy (09/20/2020), back laminectomy, cataract surgery, hysterectomy, lumbar fusion. Discharge Vitals Heart Rate (Peripheral) 59 Blood Pressure 108/64 Height 168 cm Height 66 in Weight 110.5 kg Weight 243.1 lb BMI 39.15 What to do next You Need to Schedule the Following Appointments Follow Up with Igor Ly DO, [facility] When: Within 2 weeks Comments: 2 WEEKS Where: [address] [place] [address]- Medications What How Much When Why Instructions New meloxicam (meloxicam 15 mg Tab) 1 Tablets By Mouth Every day Dorsalgia of lumbar region Refills: 1 Pickup at [facility]/pharmacy #[id number] Unchanged atorvastatin (atorvastatin 40 mg Tab) 1 Tablets By Mouth Every day Unchanged baclofen (baclofen 5 mg oral tablet) 1 Tablets By Mouth 3 times a day as needed for Pain Unchanged cholecalciferol (Vitamin D3 2000 intl units) 2,000 International unit By Mouth Every day Unchanged dorzolamide-timolol ophthalmic (dorzolamide-timolol Opth 2%-0.5% Zeynep) 1 Drops Both eyes Unchanged gabapentin (gabapentin 300 mg Cap) 1 Capsules By Mouth 3 times a day Chronic pain Unchanged hydrochlorothiazide-l isinopril (hydrochlorothiazide- lisinopril 25 mg-20 mg Tab) 2 Tablets By Mouth Every day Unchanged latanoprost ophthalmic Both eyes Unchanged metoprolol (Metoprolol tartrate 25 mg Tab) 1 Tablets By Mouth 2 times a day Unchanged Misc Prescription (PTTD ankle brace) See instructions one brace Pharmacy Information [facility]/pharmacy #[id number]: [address] [place] [phone] What How Much When Comments Stop Taking naproxen (Naprosyn 500 mg Tab) 1 Tablets By Mouth 2 times a day with food Medications and Immunizations Administered Not Given influenza virus vaccine, inactivated, Postpone due to refusal Allergies Lyrica (swelling) anabolic steroids Problems Ongoing - Any problem that you are currently receiving treatment for. Dorsalgia of lumbar region Essential hypertension Heart murmur Hyperlipidemia Patient Survey You may receive a survey via text or e-mail asking about your office visit. Please share your experience with us by completing your survey. We appreciate your feedback and thank you for choosing us for your care. Education Materials Chronic Back Pain When back pain lasts longer than 3 months, it is called chronic back pain. Pain may get worse at certain times (flare-ups). There are things you can do at home to manage your pain. Follow these instructions at home: Pay attention to any changes in your symptoms. Take these actions to help with your pain: Managing pain and stiffness ? If told, put ice on the painful area. Your doctor may tell you to use ice for 24?48 hours after the flare-up starts. To do this: ? Put ice in a plastic bag. ? Place a towel between your skin and the bag. ? Leave the ice on for 20 minutes, 2?3 times a day. ? If told, put heat on the painful area. Do this as often as told by your doctor. Use the heat source that your doctor recommends, such as a moist heat pack or a heating pad. ? Place a towel between your skin and the heat source. ? Leave the heat on for 20?30 minutes. ? Take off the heat if your skin turns bright red. This is especially important if you are unable to feel pain, heat, or cold. You may have a greater risk of getting burned. ? Soak in a warm bath. This can help relieve pain. Activity ? Avoid bending and other activities that make pain worse. ? When standing: ? Keep your upper back and neck straight. ? Keep your shoulders pulled back. ? Avoid slouching. ? When sitting: ? Keep your back straight. ? Relax your shoulders. Do not round your shoulders or pull them backward. ? Do not sit or engineering supervisor one place for long periods of time. ? Take short rest breaks during the day. Lying down or standing is usually better than sitting. Resting can help relieve pain. ? When sitting or lyin (more content not included)... 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 History of seeing any specialist: Dr. Browne (Orthopedic) and Pain Management When was your last doctors visit: 01/09 Last provider: Hiral Crews Any recent labs: no Health Maintenance UTD: Colonoscopy: 09/20/20, repeat in 10 years Dexa: Per pt [facility]2022 Mammogram: 02/13/23 Pelvic/Pap: Hx Hysterectomy AMW: DUE Flu: declines Acute: Current issues/complaints: [place] [facility] [place], for right lower back pain. Pt does see pain management. Pt was prescribed Tramadol at ER, per pt 3 pills left. Pt also requesting refills, HTN and HLD medications. History of Present Illness Care History Patient last PCP was: a resident at [facility]. She was seeing Dr. Navarro at the office. Patient currently on medications for HLD/HTN, tramadol for body pain. She was managed with this from 05/2018, and uses this sparingly for flare ups. She states that she used it initially at bedtime for pain. She states that she does use OTC Naprosyn, which does help her long-term as well. Patient sees Maribel Hurtado PA-C at [facility] Patient has had a prior L4-L5 fusion. She has this fusion done >20 [address] ago[address] Patient [address] Dr[address] Browne for management of trochanteric bursitis. She has been through physical therapy for her back and her hip. She has bursitis under control now since PT, but her back remains painful. She is currently on 900mg Gabapentin TID and she is taking 50mg tramadol from the ER. Social Patient is a 72-year-old female Patient is currently _ Patient has no smoking history. Patient has no use of marijuana. Patient has never abused drugs or prescriptions. Patient has social alcohol use without abuse. Preventative Care Last physical - 2022 Last Labs - 2022 - [facility] Last DEXA - 11/2022 Last Pap - aged out / hysterectomy Last Mammogram - 01/2023 Last colonoscopy - 09/20/2020 - 10-year followup Patient has from records found to have the following information relevant to their care: - [facility] [place] [facility] Review of Systems PHQ Score Initial Depression Screen Score: 0 SCORE ROS - Provider Constitutional: no fever, no chills Skin: no rash, no lesions ENMT: no ear pain, no sore throat, no congestion, no hoarseness. Respiratory: no shortness of breath, no cough, no wheezing. Cardiovascular: no chest pain, no palpitations, no edema. Gastrointestinal: no nausea, no vomiting, no diarrhea, Musculoskeletal: yes back pain, no trauma. Neurologic: no headache, no dizziness, no numbness, no weakness. Psychiatric: no sleeping problems, no irritability, no mood swings/depression. Physical Exam Vitals & Measurements HR: 59(Peripheral) BP: 108/64 SpO2: 97% HT: 66 in HT: 168 cm WT: 110.5 kg WT: 243.1 lb BMI: 39.15 General: Well developed, well nourished, in no acute distress Head: Normocephalic/atrauma tic Eyes: Pupils equal, round, and reactive to light. Sclerae normal, and extraocular movements intact Lungs: Normal respiratory effort and clear to auscultation Cardio: Regular rate and rhythm, CAMILO and normal S2, no murmur, no rub Musculoskeletal: No deformity or scoliosis noted. Normal range of motion. Joints normal. No erythema, edema, effusion, or ecchymosis Extremity: No clubbing, cyanosis, edema, or deformity, with normal ROM in both upper and lower bilateral extremities Neurologic: Grossly normal Skin: No rash, petechiae, suspicious lesions Mental Status: Alert and oriented x3. Normal mood and affect Assessment/Plan 1. Dorsalgia of lumbar region (M54.50: Low back pain, unspecified) Longstanding, prior surgery, chronic in nature. Gabapentin seems overloaded, will reduce to 300mg BID in the afternoon/evening pattern. Will increase NSAID up to meloxicam, discontinue naproxen. Will cover for tramadol, does not need refill today. We will update for patient when needed. Use baclofen only if needed, likely not helpful much for this patient's case. Consider MRI for evaluation of back moving forward. Ordered: meloxicam, 15 mg = 1 tab(s), Oral, Daily, # 30 tab(s), Refills(s) 1, Pharmacy: [facility]/pharmacy #[id number], 168, cm, 05/12/23 8:10:00 EDT, Height/Length Dosing, 110.5, kg, 05/12/23 8:10:00 EDT, Weight Dosing 2. Heart murmur (R01.1: Cardiac murmur, unspecified) Longstanding since childhood, had evaluated >10 years ago. Will US when appropriate. 3. Essential hypertension (I10: Essential (primary) hypertension) Stable on intake, continue current medications. 4. Hyperlipidemia (E78.5: Hyperlipidemia, unspecified) Stable on last labs by patient report, recheck when appropriate later this year. 5. BMI 39.0-39.9,adult (Z68.39: Body mass index [BMI] 39.0-39.9, adult) The standard range for ages 18 and older is >=18.5 and < 25 kg/m2. Your BMI today was above this range, this falls in the o (more content not included)... Normal [facility] Comment on above: Result Comment: Elec tronically Signed By: Igor Ly DO.br\Date and Time Signed: 05/12/23 08:58 EDT Medication Consenton 024 Medication Consent [id number] .00TIFF Normal [facility] Patient Educationon 05-12-19 24 Patient Education Orthopedics Chronic Back Pain When back pain lasts longer than 3 months, it is called chronic back pain. Pain may get worse at certain times (flare-ups). There are things you can do at home to manage your pain. Follow these instructions at home: Pay attention to any changes in your symptoms. Take these actions to help with your pain: Managing pain and stiffness ? If told, put ice on the painful area. Your doctor may tell you to use ice for 24?48 hours after the flare-up starts. To do this: ? Put ice in a plastic bag. ? Place a towel between your skin and the bag. ? Leave the ice on for 20 minutes, 2?3 times a day. ? If told, put heat on the painful area. Do this as often as told by your doctor. Use the heat source that your doctor recommends, such as a moist heat pack or a heating pad. ? Place a towel between your skin and the heat source. ? Leave the heat on for 20?30 minutes. ? Take off the heat if your skin turns bright red. This is especially important if you are unable to feel pain, heat, or cold. You may have a greater risk of getting burned. ? Soak in a warm bath. This can help relieve pain. Activity ? Avoid bending and other activities that make pain worse. ? When standing: ? Keep your upper back and neck straight. ? Keep your shoulders pulled back. ? Avoid slouching. ? When sitting: ? Keep your back straight. ? Relax your shoulders. Do not round your shoulders or pull them backward. ? Do not sit or engineering supervisor one place for long periods of time. ? Take short rest breaks during the day. Lying down or standing is usually better than sitting. Resting can help relieve pain. ? When sitting or lying down for a long time, do some mild activity or stretching. This will help to prevent stiffness and pain. ? Get regular exercise. Ask your doctor what activities are safe for you. ? Do not lift anything that is heavier than 10 lb (4.5 kg) or the limit that you are told, until your doctor says that it is safe. ? To prevent injury when you lift things: ? Bend your knees. ? Keep the weight close to your body. ? Avoid twisting. ? Sleep on a firm mattress. Try lying on your side with your knees slightly bent. If you lie on your back, put a pillow under your knees. Medicines ? Treatment may include medicines for pain and swelling taken by mouth or put on the skin, prescription pain medicine, or muscle relaxants. ? Take xwtu-dpl-tqbdxvw and prescription medicines only as told by your doctor. ? Ask your doctor if the medicine prescribed to you: ? Requires you to avoid driving or using machinery. ? Can cause trouble pooping (constipation). You may need to take these actions to prevent or treat trouble pooping: ? Drink enough fluid to keep your pee (urine) pale yellow. ? Take ymew-ubi-eewyvoz or prescription medicines. ? Eat foods that are high in fiber. These include beans, whole grains, and fresh fruits and vegetables. ? Limit foods that are high in fat and sugars. These include fried or sweet foods. General instructions ? Do not use any products that contain nicotine or tobacco, such as cigarettes, e-cigarettes, and chewing tobacco. If you need help quitting, ask your doctor. ? Keep all follow-up visits as told by your doctor. This is important. Contact a doctor if: ? Your pain does not get better with rest or medicine. ? Your pain gets worse, or you have new pain. ? You have a high fever. ? You lose weight very quickly. ? You have trouble doing your normal activities. Get help right away if: ? One or both of your legs or feet feel weak. ? One or both of your legs or feet lose feeling (have numbness). ? You have trouble controlling when you poop (have a bowel movement) or pee (urinate). ? You have bad back pain and: ? You feel like you may vomit (nauseous), or you vomit. ? You have pain in your belly (abdomen). ? You have shortness of breath. ? You faint. Summary ? When back pain lasts longer than 3 months, it is called chronic back pain. ? Pain may get worse at certain times (flare-ups). ? Use ice and heat as told by your doctor. Your doctor may tell you to use ice after flare-ups. This information is not intended to replace advice given to you by your health care provider. Make sure you discuss any questions you have with your health care provider. Document Revised: 03/15/2020 Document Reviewed: 03/15/2020 [employer] Patient Education ? 2022 [employer] Normal [facility] Consent for Treatmenton 04-18 Consent for Treatment [id number] .00TIFF Normal [facility] Discharge Instructionson Discharge Instructions [id number] .00TIFF [facility] ED Clinical Summaryon 2023 ED Clinical Summary [place] [address] ED Clinical Summary Person Information Name: JESIKA CORTEZ [facility] Age: 72 Years : 1950 Sex: Female Language: Kazakh PCP: Igor Ly DO Marital Status: Single Phone: [phone] Visit Id: Visit Reason: Back pain; LOWER BACK PAIN Speciality: Acuity: 4 Enc Type: Emergency Med Service: Emergency Arrival: 05/08/2023 13:27:13 Discharge: 05/08/2023 14:47:04 LOS: 000 01:20 Checkin: 05/08/2023 13:27:13 Checkout: 05/08/2023 14:47:04 Dispo Type: Home (Routine DC) EVENTS: Event Name Event Status Request Date/Time Start Date/Time Complete Date/Time Arrive Complete 05/08/2023 13:27:13 05/08/2023 13:27:13 05/08/2023 13:27:13 Document Home Meds Request 05/08/2023 13:27:13 Triage Complete 05/08/2023 13:27:13 05/08/2023 13:35:52 05/08/2023 13:35:52 Bed Assign Complete 05/08/2023 13:32:07 05/08/2023 13:32:07 05/08/2023 13:32:07 Dr Exam Complete 05/08/2023 13:32:07 05/08/2023 13:33:45 05/08/2023 13:33:45 RN Exam Complete 05/08/2023 13:32:07 05/08/2023 14:46:22 05/08/2023 14:46:22 Registration Complete 05/08/2023 13:33:45 05/08/2023 13:50:24 05/08/2023 13:50:24 Dr Exam Complete 05/08/2023 13:45:45 05/08/2023 13:45:45 05/08/2023 13:45:45 Reg Complete Request 05/08/2023 13:50:24 Reg Bed Request Complete 05/08/2023 13:50:24 05/08/2023 13:50:24 05/08/2023 13:50:24 Meds Admin Complete 05/08/2023 14:31:19 05/08/2023 14:42:31 Discharge Complete 05/08/2023 14:32:48 05/08/2023 14:47:11 05/08/2023 14:47:11 Transfer Complete 05/08/2023 14:47:11 05/08/2023 14:47:11 05/08/2023 14:47:11 ADDRESS: [address] [place] [phone] PHYS DOC NOTES: MEDICAL INFORMATION: Prescriptions Given: New Medications [facility]/pharmacy #[id number], [address], [place] [phone], [phone] tramadol (Ultram 50 mg Tab) 1 Tablets By Mouth every 6 hours for 3 Days. Refills: 0. Medications to Continue with No Changes Other Medications atorvastatin (atorvastatin 40 mg Tab) 1 Tablets By Mouth every day. baclofen (baclofen 5 mg oral tablet) 1 Tablets By Mouth 3 times a day as needed Pain. Refills: 0. cholecalciferol (Vitamin D3 2000 intl units) 2,000 International unit By Mouth every day. dorzolamide-timolol ophthalmic (dorzolamide-timolol Opth 2%-0.5% Zeynep) 1 Drops Both eyes. gabapentin (gabapentin 300 mg Cap) 1 Capsules By Mouth once a day (at bedtime). Refills: 1. hydrochlorothiazide-l isinopril (hydrochlorothiazide- lisinopril 25 mg-20 mg Tab) 2 Tablets By Mouth every day. latanoprost ophthalmic Both eyes. metoprolol (Metoprolol tartrate 25 mg Tab) 1 Tablets By Mouth every day. Misc Prescription (PTTD ankle brace) one brace. Refills: 0. multivitamin (Super B Complex oral tablet) naproxen (Naprosyn 500 mg Tab) 1 Tablets By Mouth 2 times a day. with food. Refills: 0. PATIENT EDUCATION INFORMATION: Instructions: Muscle Strain, Dzrm-fu-Hqex Follow up: With: Address: When: Pain Clinic: [facility] [phone] In 3 days 05/11/2023 With: Address: When: Igor Ly DO, [address] [place] [address] In 3 days 05/11/2023 DIAGNOSIS: 1:Lumbar strain Normal [facility] ED Note-Physicianon 05-08-19 ED Note-Physician Basic Information Time Seen: Esther PURCELL, Barb Carpio 05/08/2023 13:33 Chief Complaint lower back pain. chronic pain. says tramadol is what helps History of Present Illness 72-year-old female presents with right lower back pain. She has chronic pain to this area and does see pain management. She developed pain on the left side 3 days ago and saw pain management who prescribed her baclofen. She states that the pain has resolved on the left side, but is now back on the right side that started today. She used to be prescribed tramadol, but was told that since this is now a controlled substance, the provider would no longer prescribe this. Denies injury. Pain worse with movement. Denies bowel or bladder incontinence. Denies saddle anesthesia. Denies fever, abdominal pain or dysuria. Denies radiation of pain. Denies BLE swelling, temperature or sensation changes. Review of Systems Review of systems negative unless otherwise stated in HPI Physical Exam Vitals & Measurements T: 36.5 ?C(Oral) HR: 83(Peripheral) RR: 18 BP: 154/83 SpO2: 96% HT: 168 cm WT: 108.6 kg BMI: 38.48 GENERAL: ALERT, NO ACUTE DISTRESS, talking full complete sentences SKIN: WARM, DRY, INTACT; NO CYANOSIS, NO RASH HEAD: NORMOCEPHALIC, ATRAUMATIC ENT: EYE: PERRL, EOMI, NORMAL CONJUNCTIVA NOSE: NARES PATENT MOUTH: ORAL MUCOSA MOIST THROAT: NO STRIDOR NECK: SUPPLE, TRACHEA MIDLINE, FROM RESPIRATORY: NON-LABORED RESPIRATIONS EXTREMITIES: FROM X 4, NORMAL STRENGTH, CAPILLARY REFILL INTACT NEUROLOGICAL: A&OX3 SPINE: Tender to right L4/5 paraspinal muscle, NO VERTEBRAL TENDERNESS, NO STEP OFFS, NO MUSCLE SPASM PSYCHIATRIC: COOPERATIVE, APPROPRIATE MOOD AND AFFECT Medical Decision Making Patient declines any muscle relaxers as she states that she is already taking baclofen. She will be medicated with Toradol IM and given a prescription for Ultram and follow-up with pain management. OARRS reviewed. Afebrile, not tachycardic, not tachypneic, nontoxic-appearing, tolerating p.o. and ambulating at baseline and hemodynamically stable to be discharged home. Educated side effect of medications. Answered all questions. Patient in agreement with treatment. Assessment/Plan 1. Lumbar strain (S39.012A: Strain of muscle, fascia and tendon of lower back, initial encounter) Ordered: tramadol, 50 mg = 1 tab(s), Oral, q6hr, X 3 day(s), # 12 tab(s), Refills(s) 0, Pharmacy: [facility]/pharmacy #[id number], 168, cm, 05/08/23 13:35:00 EDT, Height/Length Dosing, 108.6, kg, 05/08/23 13:35:00 EDT, Weight Dosing Orders: ketorolac, 15 mg = 1 mL, Injection, IntraMuscular, Once, Stop date 05/08/23 14:31:00 EDT, STAT, Start date 05/08/23 14:31:00 EDT, 05/08/23 14:31:00 EDT lidocaine topical, 1 patch(es), Patch, TransDermal, Once, Stop date 05/08/23 14:31:00 EDT, STAT, Start date 05/08/23 14:31:00 EDT Medications Administered Given ketorolac 15 mg/mL Inj, 15 mg, IntraMuscular lidocaine Top 5% film Patch, 1 patch(es), TransDermal Disposition Plan Patient Discharge Condition Stable Discharge Disposition Home Discharge Prescription List Prescriptions Ultram 50 mg Tab, 50 mg= 1 tab(s), Oral, q6hr Follow-up With When Contact Information Pain Clinic: [facility] [phone] In 3 days 05/11/2023 EDT Additional Instructions: Igor Ly DO, FAM In 3 days 05/11/2023 [address]T [address] [place] [address]- Additional Instructions: Patient Education Muscle Strain, Anwd-do-Rell Attestation I performed a substantive part of the MDM during the patient?s E/M visit. I personally made or approved the documented management plan and acknowledge its risk of complications. (Independent Interpretation) My (EKG/X-Ray/US/CT) interpretation as above. (Discussion) Management/test interpretation discussed with APC. Problem List/Past Medical History Ongoing No qualifying data Historical No qualifying data Procedure/Surgical History Colonoscopy (09/20/2020), back laminectomy, cataract surgery, hysterectomy, lumbar fusion. Medications Inpatient No active inpatient medications Home atorvastatin 40 mg Tab, 40 mg= 1 tab(s), Oral, Daily baclofen 5 mg oral tablet, 5 mg= 1 tab(s), Oral, TID, PRN dorzolamide-timolol Opth 2%-0.5% Zeynep, 1 drop(s), Eye-Both gabapentin 300 mg Cap, 300 mg= 1 cap(s), Oral, Once a day (at bedtime), 1 refills hydrochlorothiazide-l isinopril 25 mg-20 mg Tab, 2 tab(s), Oral, Daily latanoprost ophthalmic, Eye-Both Metoprolol tartrate 25 mg Tab, 25 mg= 1 tab(s), Oral, Daily Naprosyn 500 mg Tab, 500 mg= 1 tab(s), Oral, BID PTTD ankle brace, See Instructions Super B Complex oral tablet Ultram 50 mg Tab, 50 mg= 1 tab(s), Oral, q6hr Vitamin D3 2000 intl units, 2000 International_Unit, Oral, Daily Allergies Lyrica (swelling) Social History Alcohol - Denies Alcohol Use, 02/09/2017 Substance Abuse - Denies Substance Abuse, 02/09/2017 Tobacco - Denies Tobacco Use, 02/09/2017 Never (less than 100 in lifetime) Tobacco Use:. Never Sm (more content not included)... Normal [facility] Comment on above: Result Comment: Elec tronically Signed By: Barb Santana PA-C\.br\Date and Time Signed: 05/08/23 14:51 EDT\.br\Electronically Co-Signed By: Donovan Ward DO\.br\Date and Time Co-Signed: 05/08/23 17:05 EDT ED Patient Education Noteon 05-08-2023 ED Patient Education Note Orthopedics Muscle Strain A muscle strain, or pulled muscle, happens when a muscle is stretched beyond its normal length. This can tear some muscle fibers and cause pain. Usually, it takes 1?2 weeks to heal from a muscle strain. Full healing normally takes 5?6 weeks. What are the causes? This condition is caused when a sudden force is placed on a muscle and stretches it too far. This can happen with a fall, while lifting, or during sports. What increases the risk? You are more likely to develop a muscle strain if you are an athlete or you do a lot of physical activity. What are the signs or symptoms? ? Pain. ? Tenderness. ? Bruising. ? Swelling. ? Trouble using the muscle. How is this treated? This condition is first treated with CODY therapy. This involves: ? Protecting your muscle from being injured again. ? Resting your injured muscle. ? Icing your injured muscle. ? Putting pressure (compression) on your injured muscle. This may be done with a splint or elastic bandage. ? Raising (elevating) your injured muscle. Your doctor may also recommend medicine for pain. Follow these instructions at home: If you have a splint that can be taken off: ? Wear the splint as told by your doctor. Take it off only as told by your doctor. ? Check the skin around the splint every day. Tell your doctor if you see problems. ? Loosen the splint if your fingers or toes: ? Tingle. ? Become numb. ? Turn cold and blue. ? Keep the splint clean. ? If the splint is not waterproof: ? Do not let it get wet. ? Cover it with a watertight covering when you take a bath or a shower. Managing pain, stiffness, and swelling ? If told, put ice on your injured area. To do this: ? If you have a removable splint, take it off as told by your doctor. ? Put ice in a plastic bag. ? Place a towel between your skin and the bag. ? Leave the ice on for 20 minutes, 2?3 times a day. ? Take off the ice if your skin turns bright red. This is very important. If you cannot feel pain, heat, or cold, you have a greater risk of damage to the area. ? Move your fingers or toes often. ? Raise the injured area above the level of your heart while you are sitting or lying down. ? Wear an elastic bandage as told by your doctor. Make sure it is not too tight. General instructions ? Take udqk-rtm-brocxqo and prescription medicines only as told by your doctor. This may include: ? Medicines for pain and swelling that are taken by mouth or put on the skin. ? Medicines to help relax your muscles. ? Limit your activity. Rest your injured muscle as told by your doctor. Your doctor may say that gentle movements are okay. ? If physical therapy was prescribed, do exercises as told by your doctor. ? Do not put pressure on any part of the splint until it is fully hardened. This may take many hours. ? Do not smoke or use any products that contain nicotine or tobacco. If you need help quitting, ask your doctor. ? Ask your doctor when it is safe to drive if you have a splint. ? Keep all follow-up visits. How is this prevented? Warm up before you exercise. This helps to prevent more muscle strains. Contact a doctor if: ? You have more pain or swelling in the injured area. Get help right away if: ? You have any of these problems in your injured area: ? Numbness. ? Tingling. ? Less strength than normal. Summary ? A muscle strain is an injury that happens when a muscle is stretched beyond normal length. ? This condition is first treated with CODY therapy. This includes protecting, resting, icing, adding pressure, and raising your injury. ? Limit your activity. Rest your injured muscle as told by your doctor. Your doctor may say that gentle movements are okay. ? Warm up before you exercise. This helps to prevent more muscle strains. This information is not intended to replace advice given to you by your health care provider. Make sure you discuss any questions you have with your health care provider. Document Revised: 04/23/2021 Document Reviewed: 04/23/2021 [employer] Patient Education ? 2022 [employer] Normal [facility] ED Patient Summaryon 024 ED Patient Summary [address] [address] Patient Discharge Instructions Person Information Name: JESIKA CORTEZ Age: 72 Years Arrival Date: 05/08/2023 13:27:13 Discharge Diagnosis: 1:Lumbar strain Primary Care Physician: Igor Ly DO Provider Information Primary Provider: Donovan Ward DO Advanced Engineering Illustrator:None The exam and treatment you received in the Emergency Department were for an urgent problem and are not intended as complete care. It is important that you follow up with a doctor, nurse practitioner, or physician?s commercial loan assistant for ongoing care. If your symptoms become worse or you do not improve as expected and you are unable to reach your usual health care provider, you should return to the Emergency Department. We are available 24 hours a day. JESIKA CORTEZ has been given the following list of patient education materials, prescriptions and follow-up instructions: Follow-up Instructions: With: Address: When: Pain Clinic: [facility] [phone] In 3 days 05/11/2023 With: Address: When: Igor Ly DO, [facility] [address] [address] In 3 days 05/11/2023 In the event that this physician does not participate in your insurance network, please consult with your insurance company to find a nearby participating provider. Patient Education Materials: Muscle Strain, Mhzk-wv-Tedn A MESSAGE TO ALL PATIENTS REGARDING OPIOIDS PRESCRIPTION OPIOIDS: WHAT YOU NEED TO KNOW Prescription opioids can be used to help relieve vbeeirij-sz-nyubzk pain and are often prescribed following a surgery or injury, or for certain health conditions. These medications can be an important part of the treatment but also come with serious risks. It is important to work with your healthcare provider to make sure you are getting the safest, most effective care. WHAT ARE THE RISKS AND SIDE EFFECTS OF OPIOID USE? Prescription opioids carry serious risks of addiction and overdose, especially with prolonged use. An opioid overdose, often marked by slowed breathing, can cause sudden . The use of prescription opioids can have a number of side effects as well, even when taken as directed: ? Tolerance?meaning you might need to take more of the medication for the same pain relief ? Physical dependence?meaning you have symptoms of withdrawal when a medication is stopped ? Increased sensitivity to pain ? Constipation ? Nausea, vomiting, and dry mouth ? Sleepiness and dizziness ? Confusion ? Depression ? Low levels of testosterone that can result in lower sex drive, energy, and strength ? Itching and sweating RISKS ARE GREATER WITH: ? History of drug misuse, substance use disorder, or overdose ? Mental health conditions (such as depression or anxiety) ? Sleep apnea ? Older age (65 years and older) ? Avoid alcohol while taking prescription opioids. Also, unless specifically advised by your health care provider, medications to avoid include: ? Benzodiazepines (such as Xanax or Valium) ? Muscle relaxants (such as Soma or Flexeril) ? Hypnotics (such as Ambien or Lunesta) ? Other prescription opioids KNOW YOUR OPTIONS Talk to your health care provider about ways to manage your pain that don?t involve prescription opioids. Some of these options may actually work better and have fewer risks and side effects. Options may include: ? Pain relievers such as acetaminophen, ibuprofen, and naproxen ? Some medication that are also used for depression or seizures ? Physical therapy and exercise ? Cognitive behavioral therapy, a psychological, goal-directed approach, in which patients learn how to modify physical, behavioral, and emotional triggers of pain and stress. IF YOU ARE PRESCRIBED OPIOIDS FOR PAIN: ? Never take opioids in greater amounts or more often than prescribed. ? Follow up with your primary health care provider. o Work together to create a plan on how to manage your pain. o Talk about ways to help manage your pain that don?t involve prescription opioids. o Talk about any and all concerns and side effects. ? Help prevent misuse and abuse o Never sell or share prescription opioids. o Never use another person?s prescription opioids. ? Store prescription opioids in a secure place and out of reach of others (this may include visitors, children, friends, and family). ? Safely dispose of unused prescription opioids: Find your community drug take-back program or your pharmacy mail-back program, or flush them down the toilet, following guidance from the Food and Drug Administration (www.fda.gov/Drugs/Re sourcesForYou). ? Visit www.cdc.gov/drugoverd ose to learn about the risks of opioids abuse and overdose. ? If you believe you may be struggling with addiction, tell your health lead care manager and ask for guidance or call [facility]?April Lambert (more content not included)... [facility] XR Pelvis 1 or 2 Viewson XR Pelvis 1 or 2 Views Exam Date/Time: 05/05/2023 13:51 EDT Reason for Exam: m46.1 Report IMPRESSION: NO EVIDENCE OF PELVIC BONE FRACTURE. CLINICAL HISTORY: m46.1. Left hip pain. COMPARISON: 01/31/2023. COMMENT: The bony pelvis is unremarkable in appearance. No pelvic fracture is noted. No fracture nor dislocation is evident at either hip on this AP view of the pelvis. There is lower lumbar spondylosis, and there is metallic surgical hardware at the L4-L5 level. Ordering Provider: Maribel Hurtado FINAL REPORT Dictated: 05/06/2023 3:59 pm Kingsley Wright M.D. Signed (Electronic Signature): 05/06/2023 3:59 pm Signed by: Kingsley Wright M.D. Transcribed by: MORAIMA Technologist: ADELA, Technical Comments Radiation Dose: stefan West in mGy = na DAP = na [facility] Consent for Treatmenton 04-17 Consent for Treatment [id number]#1 .00TIFF [facility] Consent for Treatment [id number] #1.00TIFF [facility] Consultation Noteon 05-05-19 24 Consultation Note Patient: JESIKA CORTEZ Age: 72 years Sex: Female : 1950 Associated Diagnoses: None Author: Maribel Hurtado PA-C Subjective Chief complaint 05/05/2023 12:44 EDT left buttock . Patient is a 72-year-old female. She presents today for a different issue. She has left-sided buttock pain. She rates it a 4/10. She states that for the last 2 nights she has been in miserable pain. She has left buttock pain that affects her ability to sit, stand, lay down, and do certain things. This affects her ability to get comfortable. This affects her quality of life. She has been using gabapentin 300 mg at bedtime which has been helping her other pains and issues but not this pain. She states that right now nothing that she has done has given her any improvement she is here today to get something done right now to make the pain better. It is a stabbing type discomfort. She states that she has a history of back surgeries and it made her other problems better but she states this left buttock pain feels different. 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 Health Status Allergies: Allergic Reactions (Selected) Severity Not Documented Lyrica- Swelling., Allergies (1) Active Severity Reaction Lyrica swelling Current medications: (Selected) Prescriptions Prescribed Naprosyn 500 mg Tab: 500 mg = 1 tab(s), Oral, BID, with food, # 20 tab(s), Refills(s) 0 PTTD ankle brace: PTTD ankle brace, See Instructions, 1 EA, 0, one brace, Supply, 168, cm, 04/02/23 10:30:00 EST, Height/Length Dosing, 108.6, kg, 04/02/23 10:30:00 EST, Weight Dosing baclofen 5 mg oral tablet: 5 mg = 1 tab(s), Oral, TID, PRN Pain, # 30 tab(s), Refills(s) 0, Pharmacy: [facility]/pharmacy #[id number], 168, cm, 05/05/23 12:58:00 EDT, Height/Length Dosing, 108.6, kg, 04/02/23 10:30:00 EST, Weight Dosing gabapentin 300 mg Cap: 300 mg = 1 cap(s), Oral, Once a day (at bedtime), # 90 cap(s), Refills(s) 1, [facility], 168, cm, 04/02/23 10:30:00 EST, Height/Length Dosing, 108.6, kg, 04/02/23 10:30:00 EST, Weight Dosing Documented Medications Documented Metoprolol tartrate 25 mg Tab: 25 mg = 1 tab(s), Oral, Daily, # 30 tab(s), Refills(s) 0, High blood pressure Super B Complex oral tablet: Refill(s) 0 Vitamin D3 2000 intl units: 2,000 International_Unit, Oral, Daily, Refills(s) 0, Prophylaxis atorvastatin 40 mg Tab: 40 mg = 1 tab(s), Oral, Daily, # 90 tab(s), Refills(s) 0, High cholesterol dorzolamide-timolol Opth 2%-0.5% Zeynep: 1 drop(s), Eye-Both, Refill(s) 0 hydrochlorothiazide-l isinopril 25 mg-20 mg Tab: 2 tab(s), Oral, Daily, Refill(s) 0 latanoprost ophthalmic: Eye-Both, Refill(s) 0 Problem list: All Problems Hypertension / SNOMED CT [id number] / Confirmed Objective Vital Signs 05/05/2023 12:44 EDT Peripheral Pulse Rate 75 bpm Respiratory Rate 16 br/min Systolic Blood Pressure 145 mmHg HI Diastolic Blood Pressure 79 mmHg Mean Arterial Pressure, Cuff 101 mmHg General: Alert and oriented, No acute distress. Eye: Normal conjunctiva. HENT: Normocephalic, Normal hearing. Cardiovascular: No edema. Musculoskeletal Normal range of motion. Normal strength. 5/5 lower extremity straight Pain with compression of the left-sided sacroiliac joint Positive SAIMA test on left Positive thigh thrust on left Positive Gaenslen's test on the left Integumentary: Warm, Dry, [place]. Neurologic: Alert, Oriented. Psychiatric: Cooperative, Appropriate mood & affect. 14 point review of systems was negative unless otherwise noted. Impression and Plan Patient is a 72-year-old female with a past medical history significant for postlaminectomy syndrome and sacroiliitis. In regards to her radicular symptoms it got better with the gabapentin. She tolerates the gabapentin fairly well but does not want to increase it as she does notice some slight swelling in her ankles but states it is manageable right now. It is not helping her left-sided buttock pain now and she is here today to get something different to help her left-sided buttock pain. She states it is a stabbing type discomfort. Worse with certain activities. On physical examination it appears to be related to her sacroiliac joint. I recommended to patient a left-sided sacroiliac joint injection under fluoroscopy for diagnostic purposes. We did have long discussion about the steroids that would be used. She would need to follow-up with her eye doctor about this and she is aware of this. She would like to get the ball rolling to do this if needed but she wonders what she can take today to try to get relief. We discussed trialing a muscle relaxer. Baclofen sent to her pharmacy. She will get a pelvis x-ray to assess her anatomy and she will follow-up 2 weeks after the injection for reevaluation. OARRS reviewed KILEY score: 51% Normal [facility] Comment on above: Result Comment: Elec tronically Signed By: Maribel Hurtado PA-C\.br\Date and Time Signed: 05/05/23 13:17 EDT\.br\Electronically Co-Signed By: Blayne Mackenzie DO\.br\Date and Time Co-Signed: 05/05/23 21:07 EDT Office/Clinic Note-Physician on 05-05-2023 Office/Clinic Note-Physician [id number]#1. 00TIFF Normal [facility] Patient Correspondenceon Patient Correspondence [id number]#1. 00TIFF Normal [facility] Patient Correspondence [id number]#1. 00TIFF Normal [facility] Patient History Officeon Patient History Office [id number]#1. 00TIFF Normal [facility] Physician Orderon 05-05-2023 Physician Order [id number]# 1.00TIFF Normal [facility] Physician Order [id number]#1. 00TIFF Normal [facility] Consent for Treatmenton 03-20 Consent for Treatment [id number] 402 [id number] #1.00TIFF Normal [facility] Consultation Noteon 04-02-19 Consultation Note Patient is presentin g with complaints of diffuse multifocal pain throughout her entire body predominantly in her back buttock and right lateral thigh at the level of the knee. She rates her pain as a 2/10 at present but it can be an 8/10 when it is flared up. She does have a history of lumbar fusion at L4-5 and likely has postlaminectomy pain syndrome as she has had persistent pain after surgery. She would like to discuss possibility of receiving tramadol as she has received this very infrequently from her orthopedic surgeon in the past. We did discuss that tramadol may not be the best medication for long-term medication management especially if she has concerns about elevated intraocular pressure. We discussed that she has multifocal pain and medications may be the best place to start as an isolated area is not significantly worse to her at this time. She is concerned about when her pain flares and what she can do. We discussed performing an epidural steroid injection for her back and radicular symptoms. We discussed adding gabapentin to her medication regimen to see how this affects her pain. She has tried physical therapy in the past and palliative care coordinator without any significant lasting relief from these. She would like to know what else can be done and we discussed medications as well as bracing and potential steroid injections. KILEY Score: 34% PHQ-2: 0 Patient denies any symptoms of progressively worsening upper/lower extremity weakness, progressively worsening gait abnormality, new onset bowel/bladder incontinence/ urinary retention, or saddle anesthesia. No new or worsening symptoms of fever, chills, night sweats. 14 Point Review of systems negative unless otherwise noted. General: No acute distress. Patient appears well-nourished. HEENT: Head is normocephalic and external ears are normal in appearance. Cardiovascular: No signs of poor perfusion and no peripheral edema Pulmonary: Nonlabored breathing, symmetric chest movement. GI: Abdomen nondistended Integumentary: No lesions Musculoskeletal: Multiple tender spots throughout entire body. Neurologic: Alert, oriented x3. 5/5 strength grossly in the bilateral upper extremities. Sensation intact to light touch in the bilateral upper extremities. 5/5 strength grossly in the bilateral lower extremities. Sensation intact to light touch in the bilateral lower extremities. Special Testing: Negative Tim sign bilaterally, mild radicular symptoms with right-sided straight leg raise. Medial arch collapse on the left ankle. History, physical examination, and personal review of pertinent imaging results indicate a diagnosis of: -Myofascial pain, potentially fibromyalgia -Postlaminectomy pain syndrome and lumbar radiculopathy predominantly affecting the right side -Left-sided posterior tibial tendon insufficiency Plan: -We had lengthy discussion about medications, we discussed that starting gabapentin 100 mg titrate to goal dose of 300 mg at bedtime would be most reasonable neck step for her -We discussed her postlaminectomy pain syndrome and radicular symptoms on the right and we discussed performing caudal epidural steroid injection, she would like to defer at this time due to concern for steroids in the history of elevated intraocular pressure -She has a history of posterior tibial insufficiency on the left and would like a prescription for a brace which we provided -Will follow-up in 3 months or sooner if any issues arise Patient was counseled on the above diagnosis and treatment, all questions were answered and patient agrees to adhere to the plan above. Risk and benefits of appropriate procedures and medications were reviewed as well with patient, who voiced understanding and agreeance. Patient was counseled on appropriate use of opioids if prescribed or renewed today and naloxone was offered to patient if opioids were prescribed or maintained at this visit. Patient was counseled on smoking cessation and/or continuing to abstain from nicotine/tobacco products as appropriate based on history; as smoking/nicotine can contribute to increased pain overall and decreased wound healing. Patient counseled on maintaining a healthy BMI as part of the total treatment of their pain and to reduce stress/strain on joints. Patient invited to return or call with any questions or concerns that arise. [facility] Comment on above: Result Comment: Elec tronically Signed By: Blayne Mackenzie DO.michael\Date and Time Signed: 04/02/23 11:19 EST HIPAA Forms Officeon 024 HIPAA Forms Office [id number]# 1.00TIFF Normal [facility] Legal Correspondence Officeo n 04-02-2023 Legal Correspondence Office [id number]# 1.00TIFF Normal [facility] Legal Correspondence Office [id number]# 1.00TIFF Normal [facility] Office/Clinic Note-Physician on 04-02-2023 Office/Clinic Note-Physician [id number]# 1.00TIFF Normal [facility] Patient Correspondenceon Patient Correspondence [id number]# 1.00TIFF Normal [facility] Patient Correspondence [id number]# 1.00TIFF Normal [facility] Patient Correspondence [id number]# 1.00TIFF Normal [facility] Patient Correspondence [id number]# 1.00TIFF Normal [facility] Patient Correspondence [id number]# 1.00TIFF Normal [facility] Patient History Officeon Patient History Office [id number]# 1.00TIFF Normal [facility] Outside Records Officeon Outside Records Office [id number]# 1.00TIFF Normal [facility] Referrals Officeon Referrals Office [id number]# 1.00TIFF Normal [facility] Consultation Noteon 03-13-19 24 Consultation Note [id number]#1. 00TIFF [facility] PT - Assessmentson PT - Assessments [id number]#1 .00TIFF [facility] Transfer Inon 03-11-2023 Transfer In [id number]#1 .00TIFF [facility] Transfer Inon 03-10-2023 Transfer In [id number]# 1.00TIFF [facility] Auth for Release of Medical Recordson 03-07-2023 Auth for Release of Medical Records [id number]#1 .00TIFF [facility] Auth for Release of Medical Records [id number]#1. 00TIFF [facility] Auth for Release of Medical Records [id number]#1. 00TIFF [facility] Formson 03-07-2023 Forms [id number]#1. 00TIFF [facility] MM screening mammo BI w/CADo n 02-03-2023 MM screening mammo BI w/CAD [facility] [place] [address] Mammography Report Signed Patient: Jesika Cortez MR#: [id number] 66 : 1950 Acct:[id number] Age/Sex: 72 / F ADM Date: 02/03/23 Loc: [place] Room: Type: [facility] Attending Dr: Rene Abdi DO Copies to: Jin/PreceptorBrenda DO [facility] Hiral Crews DO, RICKEY Ordering Provider: Hiral Crews DO, RES Date of Service: 02/03/23 MM/MM screening mammo BI w/CAD: Breast cancer screening by mammogram BILATERAL Screening Full Field digital mammogram with 3-D imaging. Full field digital CC and MLO imaging performed. CAD utilized. COMPARISON: None HISTORY: Annual screening BREAST COMPOSITION: Scattered fibroglandular densities of the breast parenchyma identified BENIGN BREAST CALCIFICATIONS: Present VASCULAR CALCIFICATIONS: None DEVELOPING ARCHITECTURAL DISTORTION: None DEVELOPING BREAST NODULE: None DEVELOPING MALIGNANT CALCIFICATIONS: None AXILLARY LYMPH NODES: Normal POSTSURGICAL CHANGES: None MM/MM screening mammo BI w/CAD IMPRESSION: No mammographic evidence of malignancy. Routine follow-up recommended in one year. RESULT CODE: 2 Benign Findings(s) DENSITY CODE: 2 (approximately 25-50% glandular) FOLLOW UP: 1YR THE FALSE-NEGATIVE RATE OF MAMMOGRAPHY IS APPROXIMATELY 10%. IMAGING OF A PALPABLE ABNORMALITY MUST BE BASED ON CLINICAL GROUNDS. PATIENT WAS ENTERED INTO A REMINDER SYSTEM WITH A TARGET DUE DATE FOR THE NEXT MAMMOGRAM. Impression dictated by: Jak Montenegro M.D.02/03/2023 7:51 AM Dictation Location: [facility] Transcribed By: [facility] 02/03/23 075 Dictated By: Jak Montenegro DO 02/03/23 0750 Signed By: 02/03/[address] [facility] XR shoulder BI min 2Von 10-0 XR shoulder BI min 2V [facility] [place] [address] [place] [address] XRay Report Signed Patient: Jesika Cortez MR#: [id number] 66 : 1950 Acct:[id number] Age/Sex: 71 / F ADM Date: 11/19/22 Loc: [place] Room: Type: [facility] Attending Dr: Rene Abdi DO Copies to: Jin/PreceptorBrenda attdereck Ramirez DO, RES Ordering Provider: Hiral Crews DO, RES Date of Service: 11/19/22 XR/XR knee RT 2V: Pain in right knee ([id number]) XR/XR shoulder BI min 2V: Pain in left shoulder Clinical data: Bilateral shoulder pain with numbness and tingling down the arms to the fingers. Decreased range of motion. Diffuse right knee pain with locking while walking. No reported injury. RIGHT KNEE - 2 views COMPARISON: None AP and lateral views were obtained. There is no acute fracture or dislocation. There is mild narrowing of the joint compartments and small marginal spurs. Enthesophytes are visualized at the origin and insertion of the patellar tendon. There is a small spur like process at the medial tibial cortex that could be an enthesophyte at the insertion of the collateral ligament. There is no knee effusion or prominent soft tissue swelling. XR/XR knee RT 2V IMPRESSION: DEGENERATIVE CHANGES. NO ACUTE BONY FINDINGS. BILATERAL SHOULDERS - 3 views each COMPARISON: None AP, Y and Grashey views were obtained. There are no acute fractures or dislocation. There is mild hypertrophy at the acromioclavicular joints bilaterally, left slightly worse than right. There is also minor sclerosis at the greater tuberosities. Minimal marginal spurring at the inferior left glenohumeral joint. There are no significant soft tissue findings. IMPRESSION: DEGENERATIVE CHANGES, GREATER ON THE LEFT. Impression dictated by: Ruby Escobar M.D.11/19/2022 3:25 PM Dictation Location: [place] [address] Transcribed By: [facility] 11/19/22 1525 Dictated By: Ruby Escobar MD 11/19/22 1454 Signed By: 11/19/[address] [facility] A1C with Estimated Average G daisyjing 08-22-2022 Glucose [Mass/Vol] 128 mg/dL Normal [facility] Comment on above: Order Comment: Reaso n for Exam Essential hypertension;Other hyperlipidemia;BMI 39.0-39.9,ad Result Comment: PERF ORMED BY: [place] [address] PATHOLOGIST NEUROLOGY PHYSICIAN ASSISTANT RONEL ANGELES M.D. Performed By: #### C MP, A1C WTH eA, LIPID, URMACRERAT, CBC #### [facility] [address] [place] [address] #### HCV RX PCR #### [facility] , HbA1c (Bld) [Mass fraction] 6.1 % High 4.3-5.6 [facility] Comment on above: Order Comment: Reaso n for Exam Essential hypertension;Other hyperlipidemia;BMI 39.0-39.9,ad Result Comment: Incr eased risk for diabetes: 5.7 - 6.4 diabetes: >6.4 glycemic control for adults with diabetes: <7.0 Performed By: #### C MP, A1C WTH eA, LIPID, URMACRERAT, CBC #### [facility] [address] #### HCV RX PCR #### [facility] , Alanine aminotransferase [En zymatic activity/volume] in Serum or PlasmaOrdered By: Hiral Crews on 08-22-2022 ALT [Catalytic activity/Vol] 15 U/L 7-52 [facility] Albumin [Mass/volume] in Ser um or Plasma by Bromocresol green (BCG) dye binding methoOrdered By: Hiral Crews on 08-22-2022 Albumin BCG dye [Mass/Vol] 4.0 g/dL 3.5-5.7 [facility] Alkaline phosphatase [Enzyma tic activity/volume] in Serum or PlasmaOrdered By: Hiral Crews on 08-22-2022 ALP [Catalytic activity/Vol] 75 U/L 34-104 [facility] Aspartate aminotransferase [ Enzymatic activity/volume] in Serum or PlasmaOrdered By: Hiral Crews on 08-22-2022 AST [Catalytic activity/Vol] 18 U/L 13-39 [facility] Basophils Auto (Bld) [#/Vol] Ordered By: Hiral Crews on 08-22-2022 Basophils (Bld) [#/Vol] 0.0 10*3/uL 0.0-0.2 [facility] Basophils/100 WBC Auto (Bld) Ordered By: Hiral Crews on 08-22-2022 Basophils/100 WBC (Bld) 0.4 % . [facility] Bilirubin.total [Mass/volume ] in Serum or PlasmaOrdered By: Hiral Crews on 08-22-2022 Bilirubin [Mass/Vol] 0.6 mg/dL 0.3-1.0 [facility] Calcium [Mass/volume] in Ser um or PlasmaOrdered By: Hiral Crews on 08-22-2022 Calcium [Mass/Vol] 9.2 mg/dL 8.6-10.3 [facility] Carbon dioxide, total [Moles /volume] in Serum or PlasmaOrdered By: Hiraljose Crews on 08-22-2022 CO2 [Moles/Vol] 25.0 mmol/L 21.0-31.0 [facility] Chloride [Moles/volume] in S gini or PlasmaOrdered By: Hiraljose Crews on 08-22-2022 Chloride [Moles/Vol] 104 mmol/L 98-107 [facility] Cholesterol [Mass/volume] in Serum or PlasmaOrdered By: Hiral Crews on 08-22-2022 Cholesterol [Mass/Vol] 192 mg/dL 140-200 [facility] Comment on above: Chol less than 200 m g/dl low riskChol 201-239 mg/dl borderline riskChol 240 mg/dl and greater high risk Cholesterol in LDL Calc [Mas s/Vol]Ordered By: Hiarl Crews on 08-22-2022 Cholesterol in LDL [Mass/Vol] 103 mg/dL 0-100 [facility] Comment on above: LDL ATP III CLASSIFI CATIONLDL less than 100 mg/dL OptimalLDL 100-129 mg/dL Near or above optimalLDL 130-159 mg/dL Borderline highLDL 160-189 mg/dL HighLDL greater than 189 mg/dL Very high Cholesterol in VLDL Calc [Ma ss/Vol]Ordered By: Hiraljose Crews on 08-22-2022 Cholesterol in VLDL [Mass/Vol] 42 mg/dL [facility] Complete Blood Count Auto Di ffon 08-22-2022 Basophils (Bld) [#/Vol] 0.0 10*3/uL Normal 0.0-0.2 [facility] Comment on above: Order Comment: Reaso n for Exam Essential hypertension;Other hyperlipidemia;BMI 39.0-39.9,ad Result Comment: PERF ORMED BY: [facility] [address] [place] [address] PATHOLOGIST NEUROLOGY PHYSICIAN ASSISTANT RONEL ANGELES M.D. Performed By: #### C MP, A1C WTH eA, LIPID, URMACRERAT, CBC #### [facility] [address] [place] [address] [place] #### HCV RX PCR #### [facility] , Basophils/100 WBC (Bld) 0.4 % Normal . [facility] Comment on above: Order Comment: Reaso n for Exam Essential hypertension;Other hyperlipidemia;BMI 39.0-39.9,ad Performed By: #### C MP, A1C WTH eA, LIPID, URMACRERAT, CBC #### [place] [address] [place] #### HCV RX PCR #### [facility] , Eosinophils (Bld) [#/Vol] 0.1 10*3/uL Normal 0.0-0.45 [facility] Comment on above: Order Comment: Reaso n for Exam Essential hypertension;Other hyperlipidemia;BMI 39.0-39.9,ad Performed By: #### C MP, A1C WTH eA, LIPID, URMACRERAT, CBC #### [place] [address] [place] #### HCV RX PCR #### [facility] , Eosinophils/100 WBC (Bld) 1.6 % Normal . [facility] Comment on above: Order Comment: Reaso n for Exam Essential hypertension;Other hyperlipidemia;BMI 39.0-39.9,ad Performed By: #### C MP, A1C WTH eA, LIPID, URMACRERAT, CBC #### [place] [address] [place] #### HCV RX PCR #### [facility] , Erythrocyte distribution width (RBC) [Ratio] 13.8 % Normal 11.9-15.3 [facility] Comment on above: Order Comment: Reaso n for Exam Essential hypertension;Other hyperlipidemia;BMI 39.0-39.9,ad Performed By: #### C MP, A1C WTH eA, LIPID, URMACRERAT, CBC #### [place] [address] [place] #### HCV RX PCR #### [facility] , Hematocrit (Bld) [Volume fraction] 37.7 % Normal 34.0-46.4 [facility] Comment on above: Order Comment: Reaso n for Exam Essential hypertension;Other hyperlipidemia;BMI 39.0-39.9,ad Performed By: #### C MP, A1C WTH eA, LIPID, URMACRERAT, CBC #### [place] [address] [place] #### HCV RX PCR #### [facility] , Hemoglobin (Bld) [Mass/Vol] 12.4 g/dL Normal 11.8-15.4 [facility] Comment on above: Order Comment: Reaso n for Exam Essential hypertension;Other hyperlipidemia;BMI 39.0-39.9,ad Performed By: #### C MP, A1C WTH eA, LIPID, URMACRERAT, CBC #### [address] #### HCV RX PCR #### [facility] , Lymphocytes (Bld) [#/Vol] 1.7 10*3/uL Normal 1.00-4.8 [facility] Comment on above: Order Comment: Reaso n for Exam Essential hypertension;Other hyperlipidemia;BMI 39.0-39.9,ad Performed By: #### C MP, A1C WTH eA, LIPID, URMACRERAT, CBC #### [place] [address] [place] #### HCV RX PCR #### [facility] , Lymphocytes/100 WBC (Bld) 21.1 % Normal . [facility] Comment on above: Order Comment: Reaso n for Exam Essential hypertension;Other hyperlipidemia;BMI 39.0-39.9,ad Performed By: #### C MP, A1C WTH eA, LIPID, URMACRERAT, CBC #### [facility] [address] [place] [address] [place] #### HCV RX PCR #### [facility] , MCH (RBC) [Entitic mass] 29.6 pg Normal 24.7-34.3 [facility] Comment on above: Order Comment: Reaso n for Exam Essential hypertension;Other hyperlipidemia;BMI 39.0-39.9,ad Performed By: #### C MP, A1C WTH eA, LIPID, URMACRERAT, CBC #### [facility] [address] [place] [address] [place] #### HCV RX PCR #### [facility] , MCV (RBC) [Entitic vol] 89.9 fL Normal 80-100 [facility] Comment on above: Order Comment: Reaso n for Exam Essential hypertension;Other hyperlipidemia;BMI 39.0-39.9,ad Performed By: #### C MP, A1C WTH eA, LIPID, URMACRERAT, CBC #### [facility] [address] [place] [address] #### HCV RX PCR #### [facility] , Mean Corpuscular HGB Conc 32.9 g/dL Normal 32.0-35.0 [facility] Comment on above: Order Comment: Reaso n for Exam Essential hypertension;Other hyperlipidemia;BMI 39.0-39.9,ad Performed By: #### C MP, A1C WTH eA, LIPID, URMACRERAT, CBC #### [facility] [address] [place] [address] #### HCV RX PCR #### [facility] , Monocytes (Bld) [#/Vol] 0.6 10*3/uL Normal 0.0-0.8 [facility] Comment on above: Order Comment: Reaso n for Exam Essential hypertension;Other hyperlipidemia;BMI 39.0-39.9,ad Performed By: #### C MP, A1C WTH eA, LIPID, URMACRERAT, CBC #### [facility] [address] [place] [address] [place] #### HCV RX PCR #### [facility] , Monocytes/100 WBC (Bld) 7.4 % Normal . [facility] Comment on above: Order Comment: Reaso n for Exam Essential hypertension;Other hyperlipidemia;BMI 39.0-39.9,ad Performed By: #### C MP, A1C WTH eA, LIPID, URMACRERAT, CBC #### [facility] [address] [place] [address] [place] #### HCV RX PCR #### [facility] , Neutrophils (Bld) [#/Vol] 5.7 10*3/uL Normal 1.8-7.7 [facility] Comment on above: Order Comment: Reaso n for Exam Essential hypertension;Other hyperlipidemia;BMI 39.0-39.9,ad Performed By: #### C MP, A1C WTH eA, LIPID, URMACRERAT, CBC #### [facility] [address] [place] [address] [place] #### HCV RX PCR #### [facility] , Neutrophils/100 WBC (Bld) 69.5 % Normal . [facility] Comment on above: Order Comment: Reaso n for Exam Essential hypertension;Other hyperlipidemia;BMI 39.0-39.9,ad Performed By: #### C MP, A1C WTH eA, LIPID, URMACRERAT, CBC #### [facility] [address] [place] [address] [place] #### HCV RX PCR #### [facility] , NRBC% 0.0 /100{WBC} Normal 0-0.5 [facility] Comment on above: Order Comment: Reaso n for Exam Essential hypertension;Other hyperlipidemia;BMI 39.0-39.9,ad Performed By: #### C MP, A1C WTH eA, LIPID, URMACRERAT, CBC #### [facility] [address] [place] [address] [place] #### HCV RX PCR #### [facility] , Platelet mean volume (Bld) [Entitic vol] 8.5 fL Normal 6.3-10.7 [facility] Comment on above: Order Comment: Reaso n for Exam Essential hypertension;Other hyperlipidemia;BMI 39.0-39.9,ad Performed By: #### C MP, A1C WTH eA, LIPID, URMACRERAT, CBC #### [facility] [address] [place] [address] [place] #### HCV RX PCR #### [facility] , Platelets (Bld) [#/Vol] 182 10*3/uL Normal 150-450 [facility] Comment on above: Order Comment: Reaso n for Exam Essential hypertension;Other hyperlipidemia;BMI 39.0-39.9,ad Performed By: #### C MP, A1C WTH eA, LIPID, URMACRERAT, CBC #### [facility] [address] [place] [address] [place] #### HCV RX PCR #### [facility] , RBC (Bld) [#/Vol] 4.19 10*6/uL Normal 3.60-5.00 [facility] Comment on above: Order Comment: Reaso n for Exam Essential hypertension;Other hyperlipidemia;BMI 39.0-39.9,ad Performed By: #### C MP, A1C WTH eA, LIPID, URMACRERAT, CBC #### [place] [address] [place] #### HCV RX PCR #### [facility] , WBC (Bld) [#/Vol] 8.2 10*3/uL Normal 3.8-11.6 [facility] Comment on above: Order Comment: Reaso n for Exam Essential hypertension;Other hyperlipidemia;BMI 39.0-39.9,ad Performed By: #### C MP, A1C WTH eA, LIPID, URMACRERAT, CBC #### [place] [address] [place] #### HCV RX PCR #### [facility] , Comprehensive Metabolic Pane edy 08-22-2022 Albumin [Mass/Vol] 4.0 g/dL Normal 3.5-5.7 [facility] Comment on above: Order Comment: Reaso n for Exam Essential hypertension;Other hyperlipidemia;BMI 39.0-39.9,ad Performed By: #### C MP, A1C WTH eA, LIPID, URMACRERAT, CBC #### [facility] [address] [place] [address] [place] #### HCV RX PCR #### [facility] , Albumin/Globulin [Mass ratio] 1.5 {ratio} Normal [facility] Comment on above: Order Comment: Reaso n for Exam Essential hypertension;Other hyperlipidemia;BMI 39.0-39.9,ad Performed By: #### C MP, A1C WTH eA, LIPID, URMACRERAT, CBC #### [facility] [address] [place] [address] [place] #### HCV RX PCR #### [facility] , ALP [Catalytic activity/Vol] 75 U/L Normal 34-104 [facility] Comment on above: Order Comment: Reaso n for Exam Essential hypertension;Other hyperlipidemia;BMI 39.0-39.9,ad Performed By: #### C MP, A1C WTH eA, LIPID, URMACRERAT, CBC #### [facility] [address] [place] [address] [place] #### HCV RX PCR #### [facility] , ALT [Catalytic activity/Vol] 15 U/L Normal 7-52 [facility] Comment on above: Order Comment: Reaso n for Exam Essential hypertension;Other hyperlipidemia;BMI 39.0-39.9,ad Performed By: #### C MP, A1C WTH eA, LIPID, URMACRERAT, CBC #### [facility] [address] [place] [address] [place] #### HCV RX PCR #### [facility] , Anion gap [Moles/Vol] 12.9 mmol/L Normal 6.0-15.0 [facility] Comment on above: Order Comment: Reaso n for Exam Essential hypertension;Other hyperlipidemia;BMI 39.0-39.9,ad Performed By: #### C MP, A1C WTH eA, LIPID, URMACRERAT, CBC #### [facility] [address] [place] [address] [place] #### HCV RX PCR #### [facility] , AST [Catalytic activity/Vol] 18 U/L Normal 13-39 [facility] Comment on above: Order Comment: Reaso n for Exam Essential hypertension;Other hyperlipidemia;BMI 39.0-39.9,ad Performed By: #### C MP, A1C WTH eA, LIPID, URMACRERAT, CBC #### [facility] [address] [place] [address] [place] #### HCV RX PCR #### [facility] , Bilirubin [Mass/Vol] 0.6 mg/dL Normal 0.3-1.0 [facility] Comment on above: Order Comment: Reaso n for Exam Essential hypertension;Other hyperlipidemia;BMI 39.0-39.9,ad Performed By: #### C MP, A1C WTH eA, LIPID, URMACRERAT, CBC #### [place] [address] [place] #### HCV RX PCR #### [facility] , Calcium [Mass/Vol] 9.2 mg/dL Normal 8.6-10.3 [facility] Comment on above: Order Comment: Reaso n for Exam Essential hypertension;Other hyperlipidemia;BMI 39.0-39.9,ad Performed By: #### C MP, A1C WTH eA, LIPID, URMACRERAT, CBC #### [place] [address] [place] #### HCV RX PCR #### [facility] , Chloride [Moles/Vol] 104 mmol/L Normal 98-107 [facility] Comment on above: Order Comment: Reaso n for Exam Essential hypertension;Other hyperlipidemia;BMI 39.0-39.9,ad Performed By: #### C MP, A1C WTH eA, LIPID, URMACRERAT, CBC #### [facility] [address] [place] [address] [place] #### HCV RX PCR #### [facility] , CO2 [Moles/Vol] 25.0 mmol/L Normal 21.0-31.0 [facility] Comment on above: Order Comment: Reaso n for Exam Essential hypertension;Other hyperlipidemia;BMI 39.0-39.9,ad Performed By: #### C MP, A1C WTH eA, LIPID, URMACRERAT, CBC #### [place] [address] [place] #### HCV RX PCR #### [facility] , Creatinine [Mass/Vol] 0.85 mg/dL Normal 0.60-1.20 [facility] Comment on above: Order Comment: Reaso n for Exam Essential hypertension;Other hyperlipidemia;BMI 39.0-39.9,ad Performed By: #### C MP, A1C WTH eA, LIPID, URMACRERAT, CBC #### [facility] [address] [place] [address] #### HCV RX PCR #### [facility] , GFR/1.73 sq M.predicted MDRD (S/P/Bld) [Vol rate/Area] mL/min/{1.73_m2} [facility] Comment on above: Order Comment: Reaso n for Exam Essential hypertension;Other hyperlipidemia;BMI 39.0-39.9,ad Performed By: #### C MP, A1C WTH eA, LIPID, URMACRERAT, CBC #### [address] #### HCV RX PCR #### [facility] , Globulin (S) [Mass/Vol] 2.7 g/dL Normal [facility] Comment on above: Order Comment: Reaso n for Exam Essential hypertension;Other hyperlipidemia;BMI 39.0-39.9,ad Performed By: #### C MP, A1C WTH eA, LIPID, URMACRERAT, CBC #### [facility] [address] [place] [address] [place] #### HCV RX PCR #### [facility] , Glucose [Mass/Vol] 83 mg/dL Normal 70-100 [facility] Comment on above: Order Comment: Reaso n for Exam Essential hypertension;Other hyperlipidemia;BMI 39.0-39.9,ad Result Comment: Rosine Glucose Reference Range is dependent on time and content of last meal. Glucose of more than 200 mg/dL in a nonstressed, ambulatory subject supports the diagnosis of Diabetes Mellitus. ADA recommended reference range Performed By: #### C MP, A1C WTH eA, LIPID, URMACRERAT, CBC #### [facility] [address] [place] [address] [place] #### HCV RX PCR #### [facility] , Potassium [Moles/Vol] 3.9 mmol/L Normal 3.5-5.1 [facility] Comment on above: Order Comment: Reaso n for Exam Essential hypertension;Other hyperlipidemia;BMI 39.0-39.9,ad Performed By: #### C MP, A1C WTH eA, LIPID, URMACRERAT, CBC #### [facility] [address] [place] [address] [place] #### HCV RX PCR #### [facility] , Protein [Mass/Vol] 6.7 g/dL Normal 6.4-8.9 [facility] Comment on above: Order Comment: Reaso n for Exam Essential hypertension;Other hyperlipidemia;BMI 39.0-39.9,ad Performed By: #### C MP, A1C WTH eA, LIPID, URMACRERAT, CBC #### [facility] [address] [place] [address] [place] #### HCV RX PCR #### [facility] , Sodium [Moles/Vol] 138 mmol/L Normal 136-145 [facility] Comment on above: Order Comment: Reaso n for Exam Essential hypertension;Other hyperlipidemia;BMI 39.0-39.9,ad Performed By: #### C MP, A1C WTH eA, LIPID, URMACRERAT, CBC #### [facility] [address] [place] [address] [place] #### HCV RX PCR #### [facility] , Urea nitrogen [Mass/Vol] 19 mg/dL Normal 7-25 [facility] Comment on above: Order Comment: Reaso n for Exam Essential hypertension;Other hyperlipidemia;BMI 39.0-39.9,ad Performed By: #### C MP, A1C WTH eA, LIPID, URMACRERAT, CBC #### [facility] [address] [place] [address] [place] #### HCV RX PCR #### [facility] , Creatinine [Mass/volume] in Serum or PlasmaOrdered By: Hiraljose Crews on 08-22-2022 Creatinine [Mass/Vol] 0.85 mg/dL 0.60-1.20 [facility] Creatinine [Mass/volume] in UrineOrdered By: Hiral Crews on 08-22-2022 Creatinine (U) [Mass/Vol] 148.0 mg/dL 11.0-20.0 [facility] echo [facility]horacicon [facility] echo transthoracic [facility] [place] [address] [place] [address] Echocardiogram Signed Patient: Jesika Cortez MR#: [id number] 66 : 1950 Acct:[id number] Age/Sex: 71 / F ADM Date: 08/22/22 Loc: Room: Type: [facility] Attending Dr: Michael Murrieta DO Ordering Provider: Hiral Crews DO, RES Date of Service: 08/22/2208/09/1445 [facility] transthoracic: Heart murmur Copies to: Yoel Morris MD, [facility] Hiral Crews DO, RES BSA: 2.2 m2 HR: 72 Reason For Study: Heart murmur History: HTN. HLD. Family history: Father-CABG. Interpretation Summary The left ventricular size, thickness and function are normal Ejection Fraction = 60-65%. A variety of Doppler measurements indicate impaired left ventricular relaxation, which is associated with grade I/IV or mild diastolic dysfunction. Trivial valvular aortic stenosis. There is no prior echocardiogram noted for this patient. Procedure/Quality: A two-dimensional transthoracic echocardiogram with color flow and Doppler was performed. The study was technically good in quality. There is no prior echocardiogram noted for this patient. Left Ventricle: The left ventricular size, thickness and function are normal. Ejection Fraction = 60-65%. A variety of Doppler measurements indicate impaired left ventricular relaxation, which is associated with grade I/IV or mild diastolic dysfunction. Left Atrium: The left atrium appears normal in size. The atrial septum appears normal. Right Atrium: The right atrium appears normal in size. Right Ventricle: The right ventricular size, thickness and function are normal. Aortic Valve: The aortic valve is mildly sclerotic. The aortic valve is trileaflet. Trivial valvular aortic stenosis. Mitral Valve: The mitral valve is mildly sclerotic. Tricuspid Valve: The tricuspid valve is normal. There is trace tricuspid regurgitation. Pulmonic Valve: The pulmonic valve is not well seen, but is grossly normal. Arteries: The aortic root is normal size. Pericardium/Pleura: No pericardial effusion seen. There is no pleural effusion. IVC/Hepatic Viens: The IVC is normal in size with an inspiratory collapse of greater then 50%, suggesting normal right atrial pressure. Miscellaneous: No thrombus, vegetation or mass is seen. Measurements with Normals IVSd: 0.94 cm (0.7-1.1 cm)LVIDd: 3.6 cm (3.7-5.4 cm) LVPWd: 1.1 cm (0.7-1.1 cm)LVIDs: 2.5 cm (2.3-3.6 cm) LA dimension: 3.9 cm (2.3-4.0 cm)Ao root diam: 3.0 cm(2.0-3.6 cm) asc Aorta Diam: 3.3 cm(2.1-3.4cm) Doppler with Normals RVSP(TR): 27.1 mmHg (18-35mmHg) LV V1 max: 107.7 cm/sec (0.7-1.7m/s)MV E max memo: 88.1 cm/sec(0.8-1.3m/s) MV A max memo: 146.3 cm/sec(0.0-0.0m/s) MV E/A: 0.60 (<1.5) MMode/2D Measurements Calculations TAPSE: 2.4 cm FS: 31.3 % Ao root area: LVOT diam: 2.0 cm RV S Memo: EDV(Teich): 7.2 cm2 LVOT area: 3.0 cm2 13.4 cm/sec 55.9 ml ESV(Teich): 22.4 ml EF(Teich): 60.0 % __ LVLd ap4: 7.7 cm SV(MOD-sp4): LAV(MOD-sp4): LA A2 area: 16.1 cm2 EDV(MOD-sp4): 59.4 ml 47.8 ml 99.0 ml LAV(MOD-sp2): LA A4 area: 19.3 cm2 LVLs ap4: 6.4 cm 44.8 ml LA length (vol): ESV(MOD-sp4): 6.1 cm 39.6 ml LA vol: 43.1 ml EF(MOD-sp4): 60.0 % LA vol index: 19.6 ml/m2 Doppler Measurements Calculations MV dec time: MV max P.0 mmHg E/E' lat: 8.9 MV dec slope: 0.15 sec E/E' med: 12.9 606.8 cm/sec2 __ Ao V2 max: AI max memo: LV V1 max PG: MR max memo: 207.6 cm/sec 457.0 cm/sec 4.6 mmHg 334.4 cm/sec Ao max PG: AI max P.6 mmHg LV V1 mean PG: MR max P.7 mmHg 17.2 mmHg AI dec slope: 2.4 mmHg Ao mean PG: LV V1 mean: 9.4 mmHg 283.2 cm/sec2 70.9 cm/sec Ao V2 mean: AI P1/2t: 472.6 msec LV V1 VTI: 143.7 cm/sec 24.0 cm Ao V2 VTI: 48.2 cm MIN(I,D): 1.5 cm2 MIN(V,D): 1.6 cm2 __ TV max PG: TR max memo: 24.0 mmHg 245.3 cm/sec TR max P.1 mmHg RAP systole: 3.0 mmHg Transcribed By: SCV Performed At: 08/22/22 1454 Signed By: Yoel Morris MD, [facility] 08/22/[address] [facility] Eosinophils Auto (Bld) [#/Vo l]Ordered By: Hiral Crews on 08-22-2022 Eosinophils (Bld) [#/Vol] 0.1 10*3/uL 0.0-0.45 [facility] Eosinophils/100 WBC Auto (Bl d)Ordered By: Hiral Crews on 08-22-2022 Eosinophils/100 WBC (Bld) 1.6 % . [facility] Erythrocyte distribution wid th Auto (RBC) [Ratio]Ordered By: Hiral Crews on 08-22-2022 Erythrocyte distribution width (RBC) [Ratio] 13.8 % 11.9-15.3 [facility] Globulin Calc (S) [Mass/Vol] Ordered By: Hiral Crews on 08-22-2022 Globulin (S) [Mass/Vol] 2.7 g/dL [facility] Glucose [Mass/volume] in Ser um or PlasmaOrdered By: Hiral Crews on 08-22-2022 Glucose [Mass/Vol] 83 mg/dL 70-100 [facility] Comment on above: ADA recommended refe rence rangeRandom Glucose Reference Range is dependent on time and content of last meal. Glucose of more than 200 mg/dL in a nonstressed, ambulatory subject supports the diagnosis of Diabetes Mellitus. Glucose mean value [Mass/vol ume] in Blood Estimated from glycated hemoglobinOrdered By: Hiral Crews on 08-22-2022 Average glucose Estimated from glycated hemoglobin (Bld) [Mass/Vol] 128 mg/dL [facility] Hematocrit Auto (Bld) [Volum e fraction]Ordered By: Hiral Crews on 08-22-2022 Hematocrit (Bld) [Volume fraction] 37.7 % 34.0-46.4 [facility] Hemoglobin A1c percentageOrd ered By: Hiral Crews on 08-22-2022 HbA1c (Bld) [Mass fraction] 6.1 % 4.3-5.6 [facility] Comment on above: Increased risk for d iabetes: 5.7 - 6.4diabetes: >6.4glycemic control for adults with diabetes: <7.0 Hemoglobin [Mass/volume] in BloodOrdered By: Hiral Crews on 08-22-2022 Hemoglobin (Bld) [Mass/Vol] 12.4 g/dL 11.8-15.4 [facility] Hep C Ab wRfx to Qnt PCRon 0 08-22-2022 Hepatitis C Virus Antibody Non-Reactive Normal Non Reactive [facility] Comment on above: Order Comment: Reaso n for Exam Encounter for hepatitis C screening test for low risk patien Performed By: #### C MP, A1C WTH eA, LIPID, URMACRERAT, CBC #### [facility] [address] [place] [address] #### HCV RX PCR #### [facility] , Interpretation Hepatitis C Normal . [facility] Comment on above: Order Comment: Reaso n for Exam Encounter for hepatitis C screening test for low risk patien Result Comment: Not infected with HCV unless early or acute infection is suspected (which may be delayed in an immunocompromised individual), or other evidence exists to indicate HCV infection. Performed at: - [facility] [id number] Front Desk Assistant: Christian Paz PhD, Phone: [phone] PERFORMED BY: [place] [address] PATHOLOGIST NEUROLOGY PHYSICIAN ASSISTANT RONEL ANGELES M.D. Performed By: #### C MP, A1C WTH eA, LIPID, URMACRERAT, CBC #### [facility] [address] [place] [address] #### HCV RX PCR #### [facility] , Hepatitis C virus IgG Ab [Pr esence] in Serum or Plasma by ImmunoassayOrdered By: Hiral Crews on 08-22-2022 HCV IgG IA Ql Non-Reactive Non Reactive [facility] Leukocytes [#/volume] correc camille for nucleated erythrocytes in Blood by Automated counOrdered By: Hiral Crews on 08-22-2022 WBC corrected for nucl RBC Auto (Bld) [#/Vol] 8.2 10*3/uL 3.8-11.6 [facility] Lipid Panelon 08-22-2022 Cholesterol [Mass/Vol] 192 mg/dL Normal 140-200 [facility] Comment on above: Order Comment: Reaso n for Exam Essential hypertension;Other hyperlipidemia;BMI 39.0-39.9,ad Result Comment: Chol less than 200 mg/dl low risk Chol 201-239 mg/dl borderline risk Chol 240 mg/dl and greater high risk Performed By: #### C MP, A1C WTH eA, LIPID, URMACRERAT, CBC #### [facility] [address] [place] [address] #### HCV RX PCR #### [facility] , Cholesterol in HDL [Mass/Vol] 47 mg/dL Normal 23-92 [facility] Comment on above: Order Comment: Reaso n for Exam Essential hypertension;Other hyperlipidemia;BMI 39.0-39.9,ad Result Comment: HDL CHOL ATP-III CLASSIFICATION Cardiovascular Risk HDL > or equal to 60 mg/dL LOW HDL < 40 mg/dL HIGH Performed By: #### C MP, A1C WTH eA, LIPID, URMACRERAT, CBC #### [facility] [address] [place] [address] #### HCV RX PCR #### [facility] , Cholesterol.total/Choles terol in HDL [Mass ratio] 4.1 {ratio} Normal <5.0 [facility] Comment on above: Order Comment: Reaso n for Exam Essential hypertension;Other hyperlipidemia;BMI 39.0-39.9,ad Result Comment: PERF ORMED BY: [place] [address] PATHOLOGIST NEUROLOGY PHYSICIAN ASSISTANT RONEL ANGELES M.D. Performed By: #### C MP, A1C WTH eA, LIPID, URMACRERAT, CBC #### [facility] [address] [place] [address] [place] #### HCV RX PCR #### [facility] , LDL Cholesterol,Calculated 103 mg/dL High 0-100 [facility] Comment on above: Order Comment: Reaso n for Exam Essential hypertension;Other hyperlipidemia;BMI 39.0-39.9,ad Result Comment: LDL ATP III CLASSIFICATION LDL less than 100 mg/dL Optimal LDL 100-129 mg/dL Near or above optimal LDL 130-159 mg/dL Borderline high LDL 160-189 mg/dL High LDL greater than 189 mg/dL Very high Performed By: #### C MP, A1C WTH eA, LIPID, URMACRERAT, CBC #### [facility] [address] [place] [address] #### HCV RX PCR #### [facility] , Triglyceride w/Reflex 210 mg/dL High 0-149 [facility] Comment on above: Order Comment: Reaso n for Exam Essential hypertension;Other hyperlipidemia;BMI 39.0-39.9,ad Result Comment: TRIG ATP III CLASSIFICATION TRIG less than 150 mg/dL Normal TRIG 150-199 mg/dL Borderline high TRIG 200-500 mg/dL High TRIG greater than 500 mg/dL Very high Standard traceable to the Center for Disease Conrtrol and Prevention (CDC) test method. Performed By: #### C MP, A1C WTH eA, LIPID, URMACRERAT, CBC #### [address] #### HCV RX PCR #### [facility] , VLDL CHOLESTEROL 42 mg/dL Normal [facility] Comment on above: Order Comment: Reaso n for Exam Essential hypertension;Other hyperlipidemia;BMI 39.0-39.9,ad Performed By: #### C MP, A1C WTH eA, LIPID, URMACRERAT, CBC #### [facility] [address] [place] [address] [place] #### HCV RX PCR #### [facility] , Lymphocytes Auto (Bld) [#/Vo l]Ordered By: Hiral Crews on 08-22-2022 Lymphocytes (Bld) [#/Vol] 1.7 10*3/uL 1.00-4.8 [facility] Lymphocytes/100 WBC Auto (Bl d)Ordered By: Hiral Crews on 08-22-2022 Lymphocytes/100 WBC (Bld) 21.1 % . [facility] MCH Auto (RBC) [Entitic mass ]Ordered By: Hiral Crews on 08-22-2022 MCH (RBC) [Entitic mass] 29.6 pg 24.7-34.3 [facility] MCHC Auto (RBC) [Mass/Vol]Or dered By: Hiral Crews on 08-22-2022 MCHC (RBC) [Mass/Vol] 32.9 g/dL 32.0-35.0 [facility] MCV Auto (RBC) [Entitic vol] Ordered By: Hiral Crews on 08-22-2022 MCV (RBC) [Entitic vol] 89.9 fL 80-100 [facility] MicroAlb Creat Ratio,Uon Albumin DL <= 20 mg/L (U) [Mass/Vol] 1.3 mg/dL Normal 0.0-1.8 [facility] Comment on above: Order Comment: Reaso n for Exam Essential hypertension Performed By: #### C MP, A1C WTH eA, LIPID, URMACRERAT, CBC #### [facility] [address] #### HCV RX PCR #### [facility] , Creatinine, Urine (Random) 148.0 mg/dL High 11.0-20.0 [facility] Comment on above: Order Comment: Reaso n for Exam Essential hypertension Performed By: #### C MP, A1C WTH eA, LIPID, URMACRERAT, CBC #### [facility] [address] [place] [address] [place] #### HCV RX PCR #### [facility] , Microalbumin/Creatinine Ratio 8.0 mg/g Normal 0.0-30.0 [facility] Comment on above: Order Comment: Reaso n for Exam Essential hypertension Result Comment: 30-3 00 mg/g indicates an increased risk for diabetic nephropathy. Greater than 300 mg/g is consistent with clinical nephropathy. (Am. J. Kidney Disease 1995, 25:107) PERFORMED BY: [facility] [address] [place] [address] PATHOLOGIST NEUROLOGY PHYSICIAN ASSISTANT RONEL ANGELES M.D. Performed By: #### C MP, A1C WTH eA, LIPID, URMACRERAT, CBC #### [facility] [address] #### HCV RX PCR #### [facility] , Microalbumin [Mass/volume] i n UrineOrdered By: Hiral Crews on 08-22-2022 Albumin DL <= 20 mg/L (U) [Mass/Vol] 1.3 mg/dL 0.0-1.8 [facility] Monocytes Auto (Bld) [#/Vol] Ordered By: Hiral Crews on 08-22-2022 Monocytes (Bld) [#/Vol] 0.6 10*3/uL 0.0-0.8 [facility] Monocytes/100 WBC Auto (Bld) Ordered By: Hiral Crews on 08-22-2022 Monocytes/100 WBC (Bld) 7.4 % . [facility] Neutrophils Auto (Bld) [#/Vo l]Ordered By: Hiral Crews on 08-22-2022 Neutrophils (Bld) [#/Vol] 5.7 10*3/uL 1.8-7.7 [facility] Neutrophils/100 WBC Auto (Bl d)Ordered By: Hiral Crews on 08-22-2022 Neutrophils/100 WBC (Bld) 69.5 % . [facility] No Panel InformationOrdered By: Hiral Crews on 08-22-2022 Estimated GFR (CKD-EPI) > 60.0 mL/Min [facility] Hepatitis C Interpretation See comment . [facility] Comment on above: Not infected with HC V unless early or acute infection issuspected (which may be delayed in an immunocompromisedindividual), or other evidence exists to indicate HCVinfection.Performed at: - [facility] [address] [id number] Director: Christian Paz PhD, Phone: [phone] Hepatitis C RNA Quantitative N/A [facility] Creatinine Clearance (Chem N/A [facility] Nucleated erythrocytes [Pres ence] in Blood by Automated countOrdered By: Hiral Crews on 08-22-2022 Nucleated RBC Auto Ql (Bld) 0.0 /100{WBC} 0-0.5 [facility] Platelet mean volume Auto (B ld) [Entitic vol]Ordered By: Hiral Crews on 08-22-2022 Platelet mean volume (Bld) [Entitic vol] 8.5 fL 6.3-10.7 [facility] Platelets Auto (Bld) [#/Vol] Ordered By: Hiral Crews on 08-22-2022 Platelets (Bld) [#/Vol] 182 10*3/uL 150-450 [facility] Potassium [Moles/volume] in Serum or PlasmaOrdered By: Hiral Crews on 08-22-2022 Potassium [Moles/Vol] 3.9 mmol/L 3.5-5.1 [facility] Protein [Mass/volume] in Ser um or PlasmaOrdered By: Hiral Crews on 08-22-2022 Protein [Mass/Vol] 6.7 g/dL 6.4-8.9 [facility] RBC Auto (Bld) [#/Vol]Ordere d By: Hiral Crews on 08-22-2022 RBC (Bld) [#/Vol] 4.19 10*6/uL 3.60-5.00 [facility] Serum or plasma albumin/glob ulin mass ratioOrdered By: Hiral Crews on 08-22-2022 Albumin/Globulin [Mass ratio] 1.5 {ratio} [facility] Serum or plasma anion gap de terminationOrdered By: Hiral Crews on 08-22-2022 Anion gap [Moles/Vol] 12.9 mmol/L 6.0-15.0 [facility] Serum or plasma high density lipoprotein (HDL) cholesterol measurementOrdered By: Hiral Crews on 08-22-2022 Cholesterol in HDL [Mass/Vol] 47 mg/dL 23-92 [facility] Comment on above: HDL CHOL ATP-III CLA SSIFICATION Cardiovascular RiskHDL > or equal to 60 mg/dL LOWHDL < 40 mg/dL HIGH Serum or plasma total choles terol/high density lipoprotein (HDL) cholesterol mass ratOrdered By: Hiral Crews on 08-22-2022 Cholesterol.total/Choles terol in HDL [Mass ratio] 4.1 {ratio} <5.0 [facility] Sodium [Moles/volume] in Ser um or PlasmaOrdered By: Hiral Crews on 08-22-2022 Sodium [Moles/Vol] 138 mmol/L 136-145 [facility] Triglyceride [Mass/volume] i n Serum or PlasmaOrdered By: Hiral Crews on 08-22-2022 Triglyceride [Mass/Vol] 210 mg/dL 0-149 [facility] Comment on above: TRIG ATP III CLASSIF ICATIONTRIG less than 150 mg/dL NormalTRIG 150-199 mg/dL Borderline highTRIG 200-500 mg/dL High TRIG greater than 500 mg/dL Very highStandard traceable to the Center for Disease Conrtrol and Prevention (CDC) test method. Urea nitrogen [Mass/volume] in Serum or PlasmaOrdered By: Hiral Crews on 08-22-2022 Urea nitrogen [Mass/Vol] 19 mg/dL 7-25 [facility] Urine microalbumin/creatinin e mass ratioOrdered By: Hiral Crews on 08-22-2022 Albumin/Creatinine DL <= 20 mg/L (U) [Mass ratio] 8.0 mg/g 0.0-30.0 [facility] Comment on above: 30-300 mg/g indicate s an increased risk for diabetic nephropathy. Greater than 300 mg/g is consistent with clinical nephropathy. (Am. J. Kidney Disease 1995, 25:107) WBC Auto (Bld) [#/Vol]Ordere d By: Hiral Crews on 08-22-2022 WBC (Bld) [#/Vol] 8.2 10*3/uL 3.8-11.6 [facility] Vital Signs Date Time Vital Sign Value Performing Clinician Marleni mann 02-24-2024 08:22-0500 Diastolic blood pressure 76 mm[Hg] Blayne Mackenzie [facility] 02-24-2024 08:22-0500 Heart rate 60 /min Blayne Mackenzie [facility] 02-24-2024 08:22-0500 Mean blood pressure 98 mm[Hg] Blayne Mackenzie [facility] 02-24-2024 08:22-0500 Respiratory rate 14 /min Blayne Mackenzie [facility] 02-24-2024 08:22-0500 Systolic blood pressure 141 mm[Hg] Blayne Mackenzie [facility] 02-03-2024 13:14-0500 Blood Pressure Location Igor Link [facility] 02-03-2024 13:14-0500 Diastolic blood pressure 72 mm[Hg] Igor Link [facility] 02-03-2024 13:14-0500 Heart rate 56 /min Igor Link [facility] 02-03-2024 13:14-0500 Respiratory rate 16 /min Igor Link [facility] 02-03-2024 13:14-0500 SaO2% (BldA) [Mass fraction] 98 % Igor Link [facility] 02-03-2024 13:14-0500 Systolic blood pressure 122 mm[Hg] Igor Link [facility] 02-02-2024 13:49-0500 Blood Pressure Location Igor Link [facility] 02-02-2024 13:49-0500 Diastolic blood pressure 74 mm[Hg] Igor Link [facility] 02-02-2024 13:49-0500 Heart rate 61 /min Igor Link [facility] 02-02-2024 13:49-0500 SaO2% (BldA) [Mass fraction] 96 % Igor Ly [facility] 02-02-2024 13:49-0500 Systolic blood pressure 119 mm[Hg] Igor Link [facility] 01-26-2024 09:44-0500 Diastolic blood pressure 82 mm[Hg] Blayne Mackenzie [facility] 01-26-2024 09:44-0500 Heart rate 55 /min Blayne Mackenzie [facility] 01-26-2024 09:44-0500 Respiratory rate 16 /min Blayne Mackenzie [facility] 01-26-2024 09:44-0500 SaO2% (BldA) [Mass fraction] 98 % Blayne Mackenzie [facility] 01-26-2024 09:44-0500 Systolic blood pressure 130 mm[Hg] Blayne Mackenzie [facility] 01-26-2024 09:35-0500 Diastolic blood pressure 74 mm[Hg] Blayne Mackenzie [facility] 01-26-2024 09:35-0500 Heart rate 60 /min Blayne Mackenzie [facility] 01-26-2024 09:35-0500 Respiratory rate 16 /min Blayne Mackenzie [facility] 01-26-2024 09:35-0500 SaO2% (BldA) [Mass fraction] 97 % Blayne Mackenzie [facility] 01-26-2024 09:35-0500 Systolic blood pressure 110 mm[Hg] Blayne Mackenzie [facility] 01-26-2024 09:30-0500 Heart rate 68 /min Blayne Mackenzie [facility] 01-26-2024 09:30-0500 SaO2% (BldA) [Mass fraction] 96 % Blayne Mackenzie [facility] 01-26-2024 09:27-0500 Diastolic blood pressure 48 mm[Hg] Blayne Mackenzie [facility] 01-26-2024 09:27-0500 Systolic blood pressure 112 mm[Hg] Blayne Mackenzie [facility] 01-26-2024 09:26-0500 Respiratory rate 16 /min Blayne Mackenzie [facility] 01-26-2024 09:05-0500 Diastolic blood pressure 87 mm[Hg] Blayne Mackenzie [facility] 01-26-2024 09:05-0500 Systolic blood pressure 145 mm[Hg] Blayne Mackenzie [facility] 01-26-2024 07:40-0500 Body temperature 97.52 [degF] Blayne Mackenzie [facility] 01-26-2024 07:40-0500 Mean blood pressure 95 mm[Hg] Blayne Mackenzie [facility] 12-19-2023 10:51-0400 Diastolic blood pressure 78 mm[Hg] Maribel Hurtado [facility] 12-19-2023 10:51-0400 Heart rate 57 /min Maribel Hurtado [facility] 12-19-2023 10:51-0400 Mean blood pressure 94 mm[Hg] Maribel Hurtado [facility] 12-19-2023 10:51-0400 Respiratory rate 18 /min Maribel Hurtado [facility] 12-19-2023 10:51-0400 Systolic blood pressure 127 mm[Hg] Maribel Hurtado [facility] 12-16-2023 15:59-0400 Heart rate 63 /min Blayne Mackenzie [facility] 12-16-2023 15:59-0400 SaO2% (BldA) [Mass fraction] 99 % Blayne Mackenzie [facility] 12-16-2023 15:59-0400 Diastolic blood pressure 80 mm[Hg] Blayne Mackenzie [facility] 12-16-2023 15:59-0400 Mean blood pressure 116 mm[Hg] Blayne Mackenzie [facility] 12-16-2023 15:59-0400 Systolic blood pressure 189 mm[Hg] Blayne Mackenzie [facility] 12-16-2023 15:59-0400 Respiratory rate 20 /min Blayne Mackenzie [facility] 12-16-2023 15:45-0400 Diastolic blood pressure 88 mm[Hg] Blayne Mackenzie [facility] 12-16-2023 15:45-0400 Heart rate 69 /min Blayne Mackenzie [facility] 12-16-2023 15:45-0400 Respiratory rate 18 /min Blayne Mackenzie [facility] 12-16-2023 15:45-0400 SaO2% (BldA) [Mass fraction] 99 % Blayne Mackenzie [facility] 12-16-2023 15:45-0400 Systolic blood pressure 204 mm[Hg] Blayne Mackenzie [facility] 12-16-2023 14:34-0400 Heart rate 67 /min Blayne Mackenzie [facility] 12-16-2023 14:34-0400 SaO2% (BldA) [Mass fraction] 96 % Cisneros Gurdeep [facility] 12-16-2023 14:34-0400 Diastolic blood pressure 69 mm[Hg] Blayne Mackenzie [facility] 12-16-2023 14:34-0400 Mean blood pressure 103 mm[Hg] Blayne Mackenzie [facility] 12-16-2023 14:34-0400 Systolic blood pressure 172 mm[Hg] Blayne Mackenzie [facility] 12-16-2023 14:34-0400 Body temperature 97.7 [degF] Blayne Mackenzie [facility] 12-16-2023 14:19-0400 Respiratory rate 16 /min Blayne Mackenzie [facility] 12-08-2023 11:48-0400 Blood Pressure Location Igor Link [facility] 12-08-2023 11:48-0400 Diastolic blood pressure 76 mm[Hg] Igor Link [facility] 12-08-2023 11:48-0400 Heart rate 74 /min Igor Link [facility] 12-08-2023 11:48-0400 SaO2% (BldA) [Mass fraction] 99 % Igor Link [facility] 12-08-2023 11:48-0400 Systolic blood pressure 124 mm[Hg] Igor Link [facility] 11-24-2023 14:01-0400 Blood Pressure Location Igor Link [facility] 11-24-2023 14:01-0400 Diastolic blood pressure 74 mm[Hg] Igor Link [facility] 11-24-2023 14:01-0400 Heart rate 68 /min Igor Link [facility] 11-24-2023 14:01-0400 SaO2% (BldA) [Mass fraction] 100 % Igor Ly [facility] 11-24-2023 14:01-0400 Systolic blood pressure 128 mm[Hg] Igor Ly [facility] 11-21-2023 10:08-0400 Diastolic blood pressure 64 mm[Hg] Maribel Hurtado [facility] 11-21-2023 10:08-0400 Heart rate 59 /min Maribel Hurtado [facility] 11-21-2023 10:08-0400 Mean blood pressure 79 mm[Hg] Maribel Hurtado [facility] 11-21-2023 10:08-0400 Respiratory rate 14 /min Maribel Hurtado [facility] 11-21-2023 10:08-0400 Systolic blood pressure 109 mm[Hg] Maribel Hurtado [facility] 11-20-2023 13:12-0400 Body temperature 98.06 [degF] Donovan Ward [facility] 11-20-2023 13:12-0400 Diastolic blood pressure 81 mm[Hg] Donovan Ward [facility] 11-20-2023 13:12-0400 Heart rate 65 /min Donovan Ward [facility] 11-20-2023 13:12-0400 Respiratory rate 20 /min Donovan Ward [facility] 11-20-2023 13:12-0400 SaO2% (BldA) [Mass fraction] 97 % Donovan Ward [facility] 11-20-2023 13:12-0400 Systolic blood pressure 171 mm[Hg] Donovan Ward [facility] 11-13-2023 10:01-0400 Blood Pressure Location Igor Link [facility] 11-13-2023 10:01-0400 Diastolic blood pressure 82 mm[Hg] Igor Link [facility] 11-13-2023 10:01-0400 Heart rate 69 /min Igor Link [facility] 11-13-2023 10:01-0400 SaO2% (BldA) [Mass fraction] 97 % Igor Link [facility] 11-13-2023 10:01-0400 Systolic blood pressure 126 mm[Hg] Igor Link [facility] 08-19-2023 11:01-0400 Blood Pressure Location Igor Link [facility] 08-19-2023 11:01-0400 Diastolic blood pressure 78 mm[Hg] Igor Link [facility] 08-19-2023 11:01-0400 Heart rate 61 /min Igor Link [facility] 08-19-2023 11:01-0400 SaO2% (BldA) [Mass fraction] 97 % Igor Link [facility] 08-19-2023 11:01-0400 Systolic blood pressure 124 mm[Hg] Igor Link [facility] 07-02-2023 08:21-0400 Blood Pressure Location KRISTAN HEWITT [facility] 07-02-2023 08:21-0400 Body temperature 98.6 [degF] KRISTAN HEWITT [facility] 07-02-2023 08:21-0400 Diastolic blood pressure 72 mm[Hg] KRISTAN HEWITT [facility] 07-02-2023 08:21-0400 Heart rate 59 /min KRISTAN HEWITT [facility] 07-02-2023 08:21-0400 Respiratory rate 15 /min KRISTAN HEWITT [facility] 07-02-2023 08:21-0400 SaO2% (BldA) [Mass fraction] 97 % KRISTAN HEWITT [facility] 07-02-2023 08:21-0400 Systolic blood pressure 138 mm[Hg] KRISTAN HEWITT [facility] 05-27-2023 11:53-0400 Blood Pressure Location Igor Link [facility] 05-27-2023 11:53-0400 Diastolic blood pressure 76 mm[Hg] Igor Link [facility] 05-27-2023 11:53-0400 Heart rate 61 /min Igor Link [facility] 05-27-2023 11:53-0400 SaO2% (BldA) [Mass fraction] 98 % Igor Link [facility] 05-27-2023 11:53-0400 Systolic blood pressure 124 mm[Hg] Igor Link [facility] 05-12-2023 08:05-0400 Blood Pressure Location Igor Link [facility] 05-12-2023 08:05-0400 Diastolic blood pressure 64 mm[Hg] Igor Link [facility] 05-12-2023 08:05-0400 Heart rate 59 /min Igor Link [facility] 05-12-2023 08:05-0400 SaO2% (BldA) [Mass fraction] 97 % Igor Link [facility] 05-12-2023 08:05-0400 Systolic blood pressure 108 mm[Hg] Igor Link [facility] 05-08-2023 13:34-0400 Body temperature 97.7 [degF] Donovan Ward [facility] 05-08-2023 13:34-0400 Diastolic blood pressure 83 mm[Hg] Donovan Ward [facility] 05-08-2023 13:34-0400 Heart rate 83 /min Donovan Ward [facility] 05-08-2023 13:34-0400 Respiratory rate 18 /min Donovan Ward [facility] 05-08-2023 13:34-0400 SaO2% (BldA) [Mass fraction] 96 % Donovan Ward [facility] 05-08-2023 13:34-0400 Systolic blood pressure 154 mm[Hg] Donovan Ward [facility] 05-05-2023 12:44-0400 Diastolic blood pressure 79 mm[Hg] Maribel Hurtado [facility] 05-05-2023 12:44-0400 Heart rate 75 /min Maribel Hurtado [facility] 05-05-2023 12:44-0400 Mean blood pressure 101 mm[Hg] Maribel Hurtado [facility] 05-05-2023 12:44-0400 Respiratory rate 16 /min Maribel Hurtado [facility] 05-05-2023 12:44-0400 Systolic blood pressure 145 mm[Hg] Maribel Hurtado [facility] 04-02-2023 09:55-0500 Diastolic blood pressure 84 mm[Hg] Blayne Mackenzie [facility] 04-02-2023 09:55-0500 Heart rate 66 /min Blayne Mackenzie [facility] 04-02-2023 09:55-0500 Mean blood pressure 108 mm[Hg] Blayne Mackenzie [facility] 04-02-2023 09:55-0500 Respiratory rate 15 /min Blayne Mackenzie [facility] 04-02-2023 09:55-0500 Systolic blood pressure 155 mm[Hg] Blayne Mackenzie [facility] Encounters Encounter Date Encounter Type Care Provider Facility Start: 03-02-2024 ambulatory DO Igor C Link Facility :[facility] Start: 02-24-2024 End: 02-24-2024 ambulatory Blayne Mackenzie [place] Start: 02-24-2024 End: 02-24-2024 Patient encounter procedure Blayne Mackenzie [facility] Start: 02-09-2024 ambulatory DO Igor C Link Facility :[facility] Start: 02-03-2024 End: 02-03-2024 ambulatory DO Igor C Link Facility:[facility] Start: 02-03-2024 End: 02-03-2024 Patient encounter procedure Igor C Link [facility] Start: 02-03-2024 End: 02-03-2024 Well adult monitoring check done Igor C Link [facility] Start: 02-02-2024 End: 02-02-2024 Patient encounter procedure Igor C Link [facility] Start: 02-02-2024 End: 02-02-2024 ambulatory DO Igor C Link Facility:[facility] Start: 01-26-2024 End: 01-26-2024 ambulatory Blayne Mackenzie [place] Start: 01-26-2024 End: 01-26-2024 Pain Management Blayne Mackenzie [facility] Start: 01-12-2024 ambulatory KRISTAN HEWITT Fa cility:[facility] Start: 12-25-2023 End: 12-25-2023 Telephone encounter Danilo Richard NP Work Phone: [facility] Comment on above: pain management Start: 12-19-2023 End: 12-19-2023 ambulatory Maribel Hurtado [place] Start: 12-19-2023 End: 12-19-2023 Patient encounter procedure Maribel Hurtado [facility] Start: 12-16-2023 End: 12-16-2023 ambulatory Blayne Mackenzie Facility[place] Start: 12-16-2023 End: 12-16-2023 Pain Management [address]ayne Mack[address] [facility] Start: 12-08-2023 End: 12-08-2023 ambulatory DO Igor C Link Facility:[facility] Start: 12-08-2023 End: 12-08-2023 Patient encounter procedure Igor C Link [facility] Start: 11-24-2023 End: 11-24-2023 ambulatory DO Igor C Link Facility:[facility] Start: 11-24-2023 End: 11-24-2023 Patient encounter procedure Igor C Link [facility] Start: 11-21-2023 End: 11-21-2023 ambulatory DO Igor C Link [place] Start: 11-21-2023 End: 11-21-2023 Patient encounter procedure Maribel Hurtado [facility] Start: 11-20-2023 End: 11-20-2023 Emergency department patient visit Donovan GutierrezLucy Ward [facility] Start: 11-18-2023 End: 11-18-2023 Bamboo flowsheet Danilo Richard NP Work Phone: [facility] Start: 11-18-2023 End: 11-18-2023 Bamboo flowsheet Danilo Richard NP Work Phone: [facility] Start: 11-18-2023 End: 11-18-2023 Office outpatient visit 10 minutes Danilo Richard NP Work Phone: [facility] Comment on above: Primary osteoarthrit is of left knee (Primary Dx); Left knee pain, unspecified chronicity; Right knee pain, unspecified chronicity; Primary osteoarthritis of right knee Start: 11-18-2023 End: 11-18-2023 ambulatory DANILO RICHARD Not Available Start: 11-13-2023 End: 11-13-2023 ambulatory DO Igor C Link Facility:[facility] Start: 11-13-2023 End: 11-13-2023 Patient encounter procedure Igor C Link [facility] Start: 10-21-2023 End: 10-21-2023 Bamboo flowsheet Danilo Richard [address] Work Phone: [facility] Start: 10-21-2023 End: 10-21-2023 Bamboo flowsheet Danilo Richard NP Work Phone: [facility] Start: 10-21-2023 End: 10-21-2023 Office outpatient visit 25 minutes Danilo Richard NP Work Phone: [facility] Comment on above: Primary osteoarthrit is of left knee (Primary Dx); Left knee pain, unspecified chronicity Start: 10-21-2023 End: 10-21-2023 ambulatory DANILO RICHARD Not Available Start: 10-14-2023 End: 10-14-2023 Bamboo flowsheet Danilo Richard [address] Work Phone: [facility] Start: 10-14-2023 End: 10-14-2023 Bamboo flowsheet Danilo Richard [address] Work Phone: [facility] Start: 10-14-2023 End: 10-14-2023 Office outpatient visit 25 minutes Danilo Richard NP Work Phone: [facility] Comment on above: Primary osteoarthrit is of right knee (Primary Dx); Right knee pain, unspecified chronicity Start: 10-14-2023 End: 10-14-2023 ambulatory DANILO RICHARD Not Available Start: 10-01-2023 End: 10-08-2023 Telephone encounter Danilo Richard [address] Work Phone: [facility] Comment on above: eye doctor Start: 09-16-2023 End: 09-16-2023 ambulatory DANILO RICHARD Not Available Start: 08-19-2023 End: 08-19-2023 ambulatory DO Igor Ly Facility:[facility] Start: 08-19-2023 End: 08-19-2023 Patient encounter procedure Igor C Link [facility] Start: 07-02-2023 End: 07-02-2023 ambulatory KRISTAN HEWITT Facility:[facility] Start: 07-02-2023 End: 07-02-2023 Patient encounter procedure KRISTAN HEWITT [facility] Start: 05-27-2023 End: 05-27-2023 ambulatory DO Igor C Link Facility:[facility] Start: 05-27-2023 End: 05-27-2023 Patient encounter procedure Iogr C Link [facility] Start: 05-12-2023 End: 05-12-2023 ambulatory DO Igor C Link Facility:[facility] Start: 05-12-2023 End: 05-12-2023 Patient encounter procedure Igor C Link [facility] Start: 05-08-2023 End: 05-08-2023 Emergency department patient visit Donovan Ward [facility] Start: 05-05-2023 End: 05-05-2023 ambulatory Maribel Hurtado [place] Start: 05-05-2023 End: 05-05-2023 Patient encounter procedure Maribelezekiel Hurtado [facility] Start: 05-05-2023 End: 05-05-2023 ambulatory XXXX NONE Facility[place] Start: 05-05-2023 End: 05-05-2023 Pain Management Maribel Hurtado [facility] Start: 04-02-2023 End: 04-02-2023 ambulatory DO Blayne Mackenzie [place] Start: 04-02-2023 End: 04-02-2023 Pain Management [address]ayne Mack[address] [facility] Start: 03-03-2023 End: 03-03-2023 ambulatory CAROLYN BROWNE Not Available Start: 02-03-2023 End: 02-03-2023 ambulatory Hiral Crews Facility:[facility] Start: 02-03-2023 End: 02-03-2023 ambulatory Services [facility] Work Phone: [facility] Work Phone: Start: 02-03-2023 End: 02-03-2023 Patient encounter procedure Services [facility] Work Phone: [facility] Work Phone: Start: 01-31-2023 End: 01-31-2023 ambulatory SOLANGE POCOS Not Available Start: 11-19-2022 End: 11-19-2022 ambulatory Hiral Malehafsa Facility:[facility] Start: 11-19-2022 End: 11-19-2022 ambulatory Services [facility] Work Phone: [facility] Work Phone: Start: 11-19-2022 End: 11-19-2022 Patient encounter procedure Services [facility] Work Phone: [facility] Work Phone: Start: 08-22-2022 End: 08-22-2022 ambulatory Michael Mast Facility:[id number] Start: 08-22-2022 End: 08-22-2022 ambulatory Services [facility] Work Phone: [facility] Work Phone: Start: 08-22-2022 End: 08-22-2022 Patient encounter procedure Services [facility] Work Phone: [facility] Work Phone: Start: 02-01-2022 End: 02-01-2022 ambulatory Services [facility] Work Phone: [facility] Work Phone: Start: 02-01-2022 End: 02-01-2022 Patient encounter procedure Services [facility] Work Phone: [facility] Procedures Date Procedure Procedure Detail Performing Clinician Start: 01-26-2024 Radiofrequency ablat ion of nerve root of lumbar spine using fluoroscopic guidance Blayne Mackenzie Start: 12-16-2023 Nerve block Maribel haro Start: 11-18-2023 Radiologic examinati on knee 1/2 views Danilo Richard NP Work Phone: Start: 10-21-2023 Arthrocentesis aspir &/inj major jt/bursa w/o us Danilo Richard [address] Work Phone: Start: 10-14-2023 Arthrocentesis aspir &/inj major jt/bursa w/o us Dnailo Richard [address] Work Phone: Start: 02-03-2023 Screening mammograph y of bilateral breasts [employer] Work Phone: Start: 11-19-2022 X-ray of right knee Ser [facility] Work Phone: Start: 11-19-2022 Plain X-ray of bilat eral shoulders [employer] Work Phone: Start: 11-19-2022 Dual energy X-ray absorptiometry [employer] Work Phone: Start: 02-01-2022 Screening mammograph y of bilateral breasts [employer] Work Phone: Start: 09-20-2020 Colonoscopy Danilo ch NP Work Phone: Start: 09-20-2020 Colonoscopy Blayne cota back laminectomy Blayne lovelace cataract surgery Blayne Mcwilliams [place] Hysterectomy Blayne Makcenzie lumbar fusion 1 Blayne Lamont es Comment on above: 1998 Plan of Treatment Date Care Activity Detail Author Start: 09-20-2030 Screening for malign ant neoplasm of colon [facility] Start: 02-04-2025 ambulatory Ambulatory Facility:[facility] Start: 11-18-2023 End: 11-18-2023 Patient encounter procedure 11/18/2023 10:15 AM EDT Office Visit [facility] [address] [place] [address] Danilo Richard, [address] [place], [place] [id number] Arrived [facility] Comment on above: Arrived Start: 10-21-2023 End: 10-21-2023 Patient encounter procedure [facility] Comment on above: Arrived Start: 10-19-2023 Influenza vaccination Influenza Vacc ine (#1) [facility] Start: 10-14-2023 End: 10-14-2023 Patient encounter procedure 10/14/2023 10:15 AM EDT Office Visit [facility] [address] [place] [id number] Danilo Richard, [address] [place] [address] Arrived [facility] Comment on above: Arrived Start: 2013 Pneumococcal Vaccine : 65+ Years (1 of 1 - PCV) Pneumococcal Vaccine: 65+ Years (1 of 1 - PCV) [facility] Start: 1988 Screening for malign ant neoplasm of breast Mammogram [facility] Start: 1948 Screening for malign ant neoplasm of colon [facility] Glucose measurement estimated from glycated hemoglobin [facility] Hepatitis C virus Ig G Ab [Presence] in Serum or Plasma by Immunoassay [facility] Immunizations Immunization Date Immunization Notes Care Provider Fa jared 01-14-2021 SARS-CoV-2 (COVID-19 ) Ad26 vaccine, recombinant Igor Link [facility] 04-21-2020 SARS-CoV-2 (COVID-19 ) Ad26 vaccine, recombinant Blayne Mackenzie [facility] Comment on above: Reason for Medicatio n: Prophylaxis NEGATED: Highlighted row has not occurred!02-02-2024 influenza virus vaccine, unspecified formulation Igor Link [facility] NEGATED: Highlighted row has not occurred!12-08-2023 influenza virus vaccine, unspecified formulation Igor Link [facility] NEGATED: Highlighted row has not occurred!11-24-2023 influenza virus vaccine, unspecified formulation Igor Link [facility] NEGATED: Highlighted row has not occurred!11-13-2023 influenza virus vaccine, unspecified formulation Igor Link [facility] NEGATED: Highlighted row has not occurred!05-27-2023 influenza virus vaccine, unspecified formulation Igor Link [facility] NEGATED: Highlighted row has not occurred!05-12-2023 influenza virus vaccine, unspecified formulation Igor Link [facility] Payers Date Payer Category Payer Self-pay [id number] 2022 Unknown [id number] 2022 Private Health Insurance [employer] [id number] 2022 Unknown 2022 Unknown [id number] 2022 Unknown [id number] 2013 Medicare [id number] [id number]. [id number] 2013 Medicare [id number] 1948 Unknown [id number] 2.16.840.1.582461.3.579.2. 356 1948 Unknown [id number] 2.16.840.1.304374.3.579.2. 1259 1948 Unknown [id number] 2.16.840.1.564758.3.579.2. 1259 1948 Unknown [id number] 2.16.840.1.904912.3.579.2. 1259 1948 Unknown [id number] 2.16.840.1.664701.3.579.2. 1259 1948 Unknown [id number] 2.16.840.1.413756.3.579.2. 1259 1948 Unknown [id number] 2.16.840.1.140767.3.579.2. 1259 1948 Unknown [id number] 2.16.840.1.614430.3.579.2. 125 1948 Unknown [id number] 2.16.840.1.444160.3.579.2. 125 1948 Unknown [id number] 2.16.840.1.453465.3.579.2. 1259 1948 Unknown [id number] 2.16.840.1.987140.3.579.2. 1259 1948 Unknown [id number] 2.16.840.1.057415.3.579.2. 727 1948 Unknown [id number] 2.16.840.1.966525.3.579.2. 727 1948 Unknown [id number] 2.16.840.1.946520.3.579.2. 727 1948 Unknown [id number] 2.16.840.1.995993.3.579.2. 727 1948 Unknown [id number] 2.16.840.1.939228.3.579.2. 727 1948 Unknown [id number] 2.16.840.1.750738.3.579.2. 1948 Unknown [id number] 2.16.840.1.410634.3.579.2. 1948 Unknown [id number] 2.16.840.1.071316.3.579.2. 1948 Unknown [id number] 2.16.840.1.230010.3.579.2. 1948 Unknown [id number] 2.16.840.1.343413.3.579.2 1948 Unknown [id number] 2.16.840.1.506393.3.579.2 1948 Unknown [id number] 2.16.840.1.591686.3.579.2 1948 Unknown [id number] 2.16.840.1.758638.3.579.2 1948 Unknown [id number] 2.16.840.1.638439.3.579.2 1948 Unknown [id number] 2.16.840.1.385250.3.579.2 1948 Unknown [id number] 2.16.840.1.231443.3.579.2. 1948 Unknown [id number] 2.16.840.1.053630.3.579.2 1948 Unknown [id number] 2.16.840.1.921798.3.579.2 1948 Unknown [id number] 2.16.840.1.626768.3.579.2 1948 Unknown [id number] 2.16.840.1.916140.3.579.2 1948 Unknown [id number] 2.16.840.1.042281.3.579.2. 727 1948 Unknown [id number] 2.16.840.1.865681.3.579.2. 727 1948 Unknown [id number] 2.16.840.1.600219.3.579.2. 727 1948 Unknown [id number] 2.16.840.1.650820.3.579.2. 727 1948 Unknown [id number] 2.16.840.1.884662.3.579.2. 727 Unknown Regular Insurance [id number] Unknown Equitable Insurance-[facility] [id number] Unknown [employer] [place] [id number] Unknown [id number] 2.16.840.1.059006.3.579.2. 531 Unknown [id number] 2.16.840.1.369086.3.579.2. 531 Unknown [id number] 2.16.840.1.505216.3.579.2. 531 Social History Date Type Detail Facility Tobacco smoking status OHIS Unknown if ever smoked [facility] Work Phone: Start: 1950 Sex Assigned At Female F [facility] Start: 01-23-2021 End: 02-02-2024 Tobacco smoking status Never smoked tobacco (finding) [facility] Tobacco smoking status Never [facility] Start: 10-14-2023 End: 10-21-2023 Sex Assigned [address] Female [facility] Start: 07-12-2022 Tobacco use and exposure Smokeless tobacco non-user [facility] Start: 10-14-2023 End: 10-21-2023 Alcoholic beverage intake Ex-drinker (finding) [facility] Start: 10-14-2023 End: 10-21-2023 History of Social function [facility] Start: 1950 Sex assigned at Not on file N [facility] NEGATED: Highlighted rowStart: [place] History of tobacco use Passive smoker [facility] Functional Status Date Assessment Result Facility 02-24-2024 Functional Status N/A [facility] 02-03-2024 Functional Status N/A [facility] 02-02-2024 Functional Status N/A [facility] 12-19-2023 Functional Status N/A [facility] 12-16-2023 Functional Status N/A [facility] 12-08-2023 Functional Status N/A [facility] 11-24-2023 Functional Status N/A [facility] 11-21-2023 Functional Status N/A [facility] 11-20-2023 Functional Status N/A [facility] 11-13-2023 Functional Status N/A [facility] 08-19-2023 Functional Status N/A [facility] 07-02-2023 Functional Status N/A [facility] 05-27-2023 Functional Status N/A [facility] 05-12-2023 Functional Status N/A [facility] 05-08-2023 Functional Status N/A [facility] 05-05-2023 Functional Status N/A [facility] 04-02-2023 Functional Status N/A [facility] Clinical Notes 04-02-2023 to 02-24-2024 Note Date & Type Note Facility 02-24-2024 Evaluation + Plan note Extrac camille from: Title:chronic pain Author:Blayne Mackenzie DO Date:02/24/24 Patient is presenting with p ast history of bilateral knee osteoarthritis bilateral knee pain. He is presenting after bilateral genicular frequency ablation performed 01/26/2024. She was 50% pain reduction on the right side and 50 to 75% improvement on the left. She rates 0/10 bilateral knee pain right now. The pain at its worst is a 5/10 severity with walking and standing where her right knee is significantly worse than her left. She is tilting gabapentin 2 tablets at bedtime. She feels this is helpful in reducing pain in other areas as well. We discussing her knees at length she jumps [id number] to this being very helpful to her having pain but sometimes that is significant and painful predominantly in the right side. She states that the left knee is livable but the right knee is still very painful at times particular when doing stairs and she states that this is not excepted a level of function for her. We discussed that it would be reasonable at this time to follow-up with her surgeon because as we discussed in the past viscosupplementation may be an option but it may not provide the relief that she is looking for and may be reasonable to consider other surgical options to see what benefit she could receive from these. She voiced understanding of this. KILEY Score: 42% PHQ-2: 0 Patient denies any symptoms of progressively worsening upper/lower extremity weakness, progressively worsening gait abnormality, new onset bowel/bladder incontinence/ urinary retention, or saddle anesthesia. No new or worsening symptoms of fever, chills, night sweats. 14 Point Review of systems negative unless otherwise noted. General: No acute distress. Patient appears well-nourished. HEENT: Head is normocephalic and external ears are normal in appearance. Cardiovascular: No signs of poor perfusion and no peripheral edema Pulmonary: Nonlabored breathing, symmetric chest movement. GI: Abdomen nondistended Integumentary: No lesions Neurologic: Alert, oriented x3. 5/5 strength grossly in the bilateral upper extremities. 5/5 strength grossly in the bilateral lower extremities. MSK/Special Testing: Mild tenderness palpation medial lateral joint lines of both knees. History, physical examination, and personal review of pertinent imaging results indicate a diagnosis of: -Bilateral knee osteoarthritis -Left knee pain -Right knee pain Plan: -Patient to get some benefit from her genicular radiofrequency ablations however we discussed that based on her reports of pain in her right knee more than left that she is still having significant pain at times and should follow-up with her surgeon. We discussed at length the possibility of gel injections and discussed that it may be of some benefit however it may not provide the relief that she is looking for. We encouraged her to follow-up with her surgeon as she is seeing a new orthopedic surgeon to discuss her knee pain and the possibility of surgery. Viscosupplementation injections could always be an option however she should see her surgeon and get their opinion as well -Follow-up in 3 months or sooner if any issues arise Patient was counseled on the above diagnosis and treatment, all questions were answered and patient agrees to adhere to the plan above. Risk and benefits of appropriate procedures and medications were reviewed as well with patient, who voiced understanding and agreeance. Patient was counseled on appropriate use of opioids if prescribed or renewed today and naloxone was offered to patient if opioids were prescribed or maintained at this visit. PHQ-2 scoring reviewed with patient and discussed seeking treatment for depression or mood disorder as appropriate. Patient was counseled on smoking cessation and/or continuing to abstain from nicotine/tobacco products as appropriate based on history; as smoking/nicotine can contribute to increased pain overall and decreased wound healing. Patient counseled on maintaining a healthy BMI as part of the total treatment of their pain and to reduce stress/strain on joints. Patient invited to return or call with any questions or concerns that arise. Future Appointments Appointment Date:03/02/2024 03:40:00 PM Scheduled Provider:Igor Ly DO Location:[facility] Appointment Type: Open Appointment Date:05/24/2024 08:00:00 AM Scheduled Provider:Blayne Mackenzie DO Location:[facility] Appointment Type:Pain Management - Follow Up (FT) Appointment Date:02/04/2025 01:00:00 PM Scheduled Provider: Location:[facility] Appointment Type:FM Medicare Wellness Subsequent Future Scheduled Tests Radiology* MA Mamm Screen w/CAD if perf and 3D Charles 02/03/24 [facility] 01-07-2025 NoteConsultation Note Patient is presenting with past history of bilateral knee osteoarthritis bilateral knee pain. He ispresenting after bilateral genicular frequency ablation performed 01/26/2024. She was 50% pain reduction on the right side and 50 to 75% improvement on the left. She rates 0/10 bilateral knee pain right now. The pain at its worst is a 5/10 severity with walking and standing where her right knee is significantly worse than her left. She is tilting gabapentin 2 tablets at bedtime. She feels this is helpful in reducing pain in other areas as well. We discussing her knees at length she jumps [id number] to this being very helpful to her having pain but sometimes that is significant and painful p redominantly in the right side. She states that the left knee is livable but the right knee is still very painful at times particular when doing stairs and she states that this is not excepted a level of function for her. We discussed that it would be reasonable at this time to follow-up with her surgeon because as we discussed in the past viscosupplementation may be an option but it may not provi de the relief that she is looking for and may be reasonable to consider other surgical options to see what benefit she could receive from these. She voiced understanding of this. KILEY Score: 42% PHQ-2: 0 Patient denies any symptoms of progressively worsening upper/lower extremity weakness, progressively worsening gait abnormality, new onset bowel/bladder incontinence/ urinary retention, or saddle anesthesia. No new or worsening symptoms of fever, chills, night sweats. 14 Point Review of systems negative unless otherwise noted. General: No acute distress. Patient appears well-nourished. HEENT: Head is normocephalic and external ears are normal in appearance. Cardiovascular: No signs of poor perfusion and no peripheral edema Pulmonary: Nonlabored breathing, symmetric chest movement. GI: Abdomen nondistended Integumentary: No lesions Neurologic: Alert, oriented x3. 5/5 strength grossly in the bilateral upper extremities. 5/5 strength grossly in the bilateral lower extremities. MSK/Special Testing: Mild tenderness palpation medial lateral joint lines of both knees. History, physical examination, and personal review of pertinent imaging results indicate a diagnosis of: -Bilateral knee osteoarthritis -Left knee pain -Right knee pain Plan: -Patient to get some benefit from her genicular radiofrequency ablations however we discussed that based on her reports of pain in her right knee more than left that she is still having significant pain at times and should follow-up with her surgeon. We discussed at length the possibility of gel injections and discussed that it may be of some benefit however it may not provide the relief that sheis looking for. We encouraged her to follow-up with her surgeon as she is seeing a new orthopedic surgeon to discuss her knee pain and the possibility of surgery. Viscosupplementation injections could always be an option however she should see her surgeon and get their opinion as well -Follow-up in 3 months or sooner if any issues arise Patient was counseled on the above diagnosis and treatment, all questions were answered and patientagrees to adhere to the plan above. Risk and benefits of appropriate procedures and medications were reviewed as well with patient, who voiced understanding and agreeance. Patient was counseled on appropriate use of opioids if prescribed or renewed today and naloxone was offered to patient if opioids were prescribed or maintained at this visit. PHQ-2 scoring reviewed with patient and discussed seeking treatment for depression or mood disorder as appropriate. Patient was counseled on smoking cessation and/or continuing to abstain from nicotine/tobacco products as appropriate based on history; as smoking/nicotine can contribute to increased pain overall and decreased wound healing. Patient counseled on maintaining a healthy BMI as part of the total treatment of their pain and to reduce stress/strain on joints. Patient invited to return or call with any questions or concerns that arise.[facility] HospitalComment on [facility]:Result Comment: Electronically Signed By: Blayne Mackenzie DO\.br\Date and Time Signed: 02/24/24 09:21 [id number] Hospital Discharge instructions Patient Education 02/03/2024 15:42:53 Preventive Care 65 Years and Older, Female Preventive Care 65 Years and Older, Female Preventive care refers to lifestyle choices and visits with your health care provider that can promote health and wellness. Preventive care visits are also called wellness exams. What can I expect for my preventive care visit? Counseling Your health care provider may ask you questions about your: Medical history, including: ?Past medical problems. ?Family medical history. ? and menstrual history. ?History of falls. Current health, including: ?Memory and ability to understand (cognition). ?Emotional well-being. ?Home life and relationship well-being. ?Sexual activity and sexual health. Lifestyle, including: ?Alcohol, nicotine or tobacco, and drug use. ?Access to firearms. ?Diet, exercise, and sleep habits. ?Work and work environment. ?Sunscreen use. ?Safety issues such as seatbelt and bike helmet use. Physical exam Your health care provider will check your: Height and weight. These may be used to calculate your BMI (body mass index). BMI is a measurement that tells if you are at a healthy weight. Waist circumference. This measures the distance around your waistline. This measurement also tells if you are at a healthy weight and may help predict your risk of certain diseases, such as type 2 diabetes and high blood pressure. Heart rate and blood pressure. Body temperature. Skin for abnormal spots. What immunizations do I need? Vaccines are usually given at various ages, according to a schedule. Your health care provider willrecommend vaccines for you based on your age, medical history, and lifestyle or other factors, suchas travel or where you work. What tests do I need? Screening Your health care provider may recommend screening tests for certain conditions. This may include: Lipid and cholesterol levels. Hepatitis C test. Hepatitis B test. HIV (human immunodeficiency virus) test. STI (sexually transmitted infection) testing, if you are at risk. Lung cancer screening. Colorectal cancer screening. Diabetes screening. This is done by checking your blood sugar (glucose) after you have not eaten for a while (fasting). Mammogram. Talk with your health care provider about how often you should have regular mammograms. BRCA-related cancer screening. This may be done if you have a family history of breast, ovarian, tubal, or peritoneal cancers. Bone density scan. This is done to screen for osteoporosis. Talk with your health care provider about your test results, treatment options, and if necessary, the need for more tests. Follow these instructions at home: Eating and drinking Eat a diet that includes fresh fruits and vegetables, whole grains, lean protein, and low-fat dairyproducts. Limit your intake of foods with high amounts of sugar, saturated fats, and salt. Take vitamin and mineral supplements as recommended by your health care provider. Do not drink alcohol if your health care provider tells you not to drink. If you drink alcohol: ?Limit how much you have to 0 1 drink a day. ?Know how much alcohol is in your drink. In the [place] one drink equals one 12 oz bottle of beer (355 mL), one 5 oz glass of wine (148 mL), or one 1 oz glass of hard liquor (44 mL). Lifestyle [place] your teeth every morning and night with fluoride toothpaste. Floss one time each day. Exercise for at least 30 minutes 5 or more days each week. Do not use any products that contain nicotine or tobacco. These products include cigarettes, chewing tobacco, and vaping devices, such as e-cigarettes. If you need help quitting, ask your health careprovider. Do not use drugs. If you are sexually active, practice safe sex. Use a condom or other form of protection in order toprevent STIs. Take aspirin only as told by your health care provider. Make sure that you understand how much to take and what form to take. Work with your health care provider to find out whether it is safe and beneficial for you to take aspirin daily. Ask your health care provider if you need to take a cholesterol-lowering medicine (statin). Find healthy ways to manage stress, such as: ?Meditation, yoga, or listening to music. ?Journaling. ?Talking to a trusted person. ?Spending time with friends and family. Minimize exposure to UV radiation to reduce your risk of skin cancer. Safety Always wear your seat belt while driving or riding in a vehicle. Do not drive: ?If you have been drinking alcohol. Do not ride with someone who has been drinking. ?When you are tired or distracted. ?While texting. ?If you have been using any mind-altering substances or drugs. Wear a helmet and other protective equipment during sports activities. If you have firearms in your house, make sure you follow all gun safety procedures. What's next? Visit your health care provider once a year for an annual wellness visit. Ask your health care provider how often you should have your eyes and teeth checked. Stay up to date on all vaccines. This information is not intended to replace advice given to you by your health care provider. Make sure you discuss any questions you have with your health care provider. Document Revised: 08/01/2021 Document Reviewed: 08/01/2021 [employer] Patient Education 2023 [employer]. 02/03/2024 15:42:41 Heart Disease Prevention Heart Disease Prevention Heart disease is the leading cause of in the world. Coronary artery disease is the most common cause of heart disease. This condition results when cholesterol and other substances (plaque) build up inside the castillo of the blood vessels that supply your heart muscle (arteries). This buildup inarteries is called atherosclerosis. You can take actions to lower your risk of heart disease. How can heart disease affect me? Heart disease can cause many unpleasant symptoms and complications, such as: Chest pain (angina). Reduced or blocked blood flow to your heart. This can cause: ?Irregular heartbeats (arrhythmias). ?Heart attack. ?Heart failure. What can increase my risk? The following factors may make you more likely to develop this condition: High blood pressure (hypertension). High cholesterol. A diet high in saturated fats or trans fats. Obesity. Diabetes. Having a family history of heart disease. Certain lifestyle factors, including: ?Smoking. ?Lack of physical activity. ?Drinking too much alcohol. What actions can I take to prevent heart disease? Nutrition Follow a heart-healthy eating plan as told by your health care provider. Examples include the DASH eating plan. DASH stands for Dietary Approaches to Stop Hypertension. Generally, it is recommended that you: ?Eat less salt (sodium). Ask your health care provider how much sodium is safe for you. Most peopleshould have less than 2,300 mg each day. ?Limit unhealthy fats, such as saturated and trans fats, in your diet. You can do this by eating low-fat dairy products, eating less red meat, and avoiding processed foods. ?Eat healthy fats (omega-3 fatty acids). These are found in fish, such as mackerel or salmon. ?Eat more fruits and vegetables. You should try to fill one-half of your plate with fruits and vegetables at each meal. ?Eat more whole grains. ?Avoid foods and drinks that have added sugars. Try to limit how much added sugar you have to: ?Less than 25 grams a day for women. ?Less than 36 grams a day for men. Lifestyle Get regular exercise. This is one of the most important things you can do for your health. Generally, it is recommended that you: ?Exercise for at least 30 minutes on most days of the week (150 minutes each week). This should be exercise that causes your heart to beat faster (aerobic exercise). ?Add strength exercises on at least 2 days each week. Do not use any products that contain nicotine or tobacco. These products include cigarettes, chewing tobacco, and vaping devices, such as e-cigarettes. These can damage your heart and blood vessels. If you need help quitting, ask your health care provider. Alcohol use Do not drink alcohol if: ?Your health care provider tells you not to drink. ?You are , may be , or are planning to become . If you drink alcohol: ?Limit how much you have to: ?0 1 drink a day for women. ?0 2 drinks a day for men. ?Know how much alcohol is in your drink. In the [place] one drink equals one 12 oz bottle of beer (355 mL), one 5 oz glass of wine (148 mL), or one 1 oz glass of hard liquor (44 mL). Medicines Take ptpo-[id number]-[id number] and prescription medicines only as told by your health care provider. Work with your health care provider to find out whether it is safe and beneficial for you to take aspirin daily. Make sure that you understand how much to take and what form to take. Depending on your risk factors, your health care provider may prescribe medicines to lower your risk of heart disease or to control related conditions. You may take medicine to: ?Lower cholesterol. ?Control blood pressure. ?Control diabetes. General information Keep your blood pressure under control, as recommended by your health care provider. For most healthy people, the upper number of their blood pressure (systolic) should be no higher than 120, and thelower number (diastolic) no higher than 80. Treatment may be needed if your blood pressure is higher than 130/80. Have your blood pressure checked at least every 2 years. Your health care provider may check your blood pressure more often if you have high blood pressure. After age 20, have your cholesterol checked every 4 6 years. If you have risk factors for heart disease, you may need to have it checked more often. Treatment may be needed if your cholesterol is high. Have your body mass index (BMI) checked every year. Your health care provider can calculate your BMI from your height and weight. Check your waist circumference. It should be: ?No more than 35 inches (89 cm) for women who are not . ?No more than 40 inches (102 cm) for men. Work with your health care provider to lose weight, if needed, or to maintain a healthy weight. Where to find more information: Centers for Disease Control and Prevention: www.cdc.gov/heartdisease [place] [employer]: www.heart.org Summary Heart disease is the leading cause of in the world. Heart disease can cause chest pain, abnormal heart rhythms, heart attack, and heart failure. Some of the risk factors for heart disease include high blood pressure, high cholesterol, and smoking. You can take actions to lower your chances of developing heart disease. Work with your health care provider to reduce your risk by following a heart-healthy diet, being physically active, and controlling your weight, blood pressure, and cholesterol level. This information is not intended to replace advice given to you by your health care provider. Make sure you discuss any questions you have with your health care provider. Document Revised: 10/03/2021 Document Reviewed: 10/03/2021 [facility] Patient Education 2023 [employer]. 02/03/2024 15:42:38 Exercising to Lose Weight Exercising to Lose Weight Getting regular exercise is important for everyone. It is especially important if you are overweight. Being overweight increases your risk of heart disease, stroke, diabetes, high blood pressure, andseveral types of cancer. Exercising, and reducing the calories you consume, can help you lose weight and improve fitness and health. Exercise can be moderate or vigorous intensity. To lose weight, most people need to do a certain amount of moderate or vigorous-intensity exercise each week. How can exercise affect me? You lose weight when you exercise enough to burn more calories than you eat. Exercise also reduces body fat and builds muscle. The more muscle you have, the more calories you burn. Exercise also: Improves mood. Reduces stress and tension. Improves your overall fitness, flexibility, and endurance. Increases bone strength. Moderate-intensity exercise Moderate-intensity exercise is any activity that gets you moving enough to burn at least three times more energy (calories) than if you were sitting. Examples of moderate exercise include: Walking a mile in 15 minutes. Doing light yard work. Biking at an easy pace. Most people should get at least 150 minutes of moderate-intensity exercise a week to maintain theirbody weight. Vigorous-intensity exercise Vigorous-intensity exercise is any activity that gets you moving enough to burn at least six times more calories than if you were sitting. When you exercise at this intensity, you should be working hard enough that you are not able to carry on a conversation. Examples of vigorous exercise include: Running. Playing a team sport, such as football, basketball, and soccer. Jumping rope. Most people should get at least 75 minutes a week of vigorous exercise to maintain their body weight. What actions can I take to lose weight? The amount of exercise you need to lose weight depends on: Your age. The type of exercise. Any health conditions you have. Your overall physical ability. Talk to your health care provider about how much exercise you need and what types of activities aresafe for you. Nutrition Make changes to your diet as told by your health care provider or diet and nutritionist (dietitian). This may include: ?Eating fewer calories. ?Eating more protein. ?Eating less unhealthy fats. ?Eating a diet that includes fresh fruits and vegetables, whole grains, low-fat dairy products, andlean protein. ?Avoiding foods with added fat, salt, and sugar. Drink plenty of water while you exercise to prevent dehydration or heat stroke. Activity Choose an activity that you enjoy and set realistic goals. Your health care provider can help you make an exercise plan that works for you. Exercise at a moderate or vigorous intensity most days of the week. ?The intensity of exercise may vary from person to person. You can tell how intense a workout is for you by paying attention to your breathing and heartbeat. Most people will notice their breathing and heartbeat get faster with more intense exercise. Do resistance training twice each week, such as: ?Push-ups. ?Sit-ups. ?Lifting weights. ?Using resistance bands. Getting short amounts of exercise can be just as helpful as long, structured periods of exercise. If you have trouble finding time to exercise, try doing these things as part of your daily routine: ?Get up, stretch, and walk around every 30 minutes throughout the day. ?Go for a walk during your lunch break. ?Park your car farther away from your destination. ?If you take public transportation, get off one stop early and walk the rest of the way. ?Make phone calls while standing up and walking around. ?Take the stairs instead of elevators or escalators. Wear comfortable clothes and shoes with good support. Do not exercise so much that you hurt yourself, feel dizzy, or get very short of breath. Where to find more information [place] Department of Health and Human Services: www.hhs.gov Centers for Disease Control and Prevention: www.cdc.gov Contact a health care provider: Before starting a new exercise program. If you have questions or concerns about your weight. If you have a medical problem that keeps you from exercising. Get help right away if: You have any of the following while exercising: ?Injury. ?Dizziness. ?Difficulty breathing or shortness of breath that does not go away when you stop exercising. ?Chest pain. ?Rapid heartbeat. These symptoms may represent a serious problem that is an emergency. Do not wait to see if the symptoms will go away. Get medical help right away. Call your local emergency services (911 in the [place] Do not drive yourself to the hospital. Summary Getting regular exercise is especially important if you are overweight. Being overweight increases your risk of heart disease, stroke, diabetes, high blood pressure, and several types of cancer. Losing weight happens when you burn more calories than you eat. Reducing the amount of calories you eat, and getting regular moderate or vigorous exercise each week, helps you lose weight. This information is not intended to replace advice given to you by your health care provider. Make sure you discuss any questions you have with your health care provider. Document Revised: 04/01/2021 Document Reviewed: 04/01/2021 [facility] Patient Education 2023 [employer]. 02/03/2024 15:42:36 DASH Eating Plan DASH Eating Plan DASH stands for Dietary Approaches to Stop Hypertension. The DASH eating plan is a healthy eating plan that has been shown to: Lower high blood pressure (hypertension). Reduce your risk for type 2 diabetes, heart disease, and stroke. Help with weight loss. What are tips for following this plan? Reading food labels Check food labels for the amount of salt (sodium) per serving. Choose foods with less than 5 percent of the Daily Value (DV) of sodium. In general, foods with less than 300 milligrams (mg) of sodium per serving fit into this eating plan. To find whole grains, look for the word whole as the first word in the ingredient list. Shopping Buy products labeled as low-sodium or no salt added. Buy fresh foods. Avoid canned foods and pre-made or frozen meals. Cooking Try not to add salt when you cook. Use salt-free seasonings or herbs instead of table salt or sea salt. Check with your health care provider or pharmacist before using salt substitutes. Do not mares foods. Cook foods in healthy ways, such as baking, boiling, grilling, roasting, or broiling. Cook using oils that are good for your heart. These include olive, canola, avocado, soybean, and sunflower oil. Meal planning Eat a balanced diet. This should include: ?4 or more servings of fruits and 4 or more servings of vegetables each day. Try to fill half of your plate with fruits and vegetables. ?6 8 servings of whole grains each day. ?6 or less servings of lean meat, poultry, or fish each day. 1 oz is 1 serving. A 3 oz (85 g) serving of meat is about the same size as the palm of your hand. One egg is 1 oz (28 g). ?2 3 servings of low-fat dairy each day. One serving is 1 cup (237 mL). ?1 serving of nuts, seeds, or beans 5 times each week. ?2 3 servings of heart-healthy fats. Healthy fats called omega-3 fatty acids are found in foods such as walnuts, flaxseeds, fortified milks, and eggs. These fats are also found in cold-water fish, such as sardines, salmon, and mackerel. Limit how much you eat of: ?Canned or prepackaged foods. ?Food that is high in trans fat, such as fried foods. ?Food that is high in saturated fat, such as fatty meat. ?Desserts and other sweets, sugary drinks, and other foods with added sugar. ?Full-fat dairy products. Do not salt foods before eating. Do not eat more than 4 egg yolks a week. Try to eat at least 2 vegetarian meals a week. Eat more home-cooked food and less restaurant, buffet, and fast food. Lifestyle When eating at a restaurant, ask if your food can be made with less salt or no salt. If you drink alcohol: ?Limit how much you have to: ?0 1 drink a day if you are female. ?0 2 drinks a day if you are male. ?Know how much alcohol is in your drink. In the [place] one drink is one 12 oz bottle of beer (355 mL), one 5 oz glass of wine (148 mL), or one 1 oz glass of hard liquor (44 mL). General information Avoid eating more than 2,300 mg of salt a day. If you have hypertension, you may need to reduce your sodium intake to 1,500 mg a day. Work with your provider to stay at a healthy body weight or lose weight. Ask what the best weight range is for you. On most days of the week, get at least 30 minutes of exercise that causes your heart to beat faster. This may include walking, swimming, or biking. Work with your provider or dietitian to adjust your eating plan to meet your specific calorie needs. What foods should I eat? Fruits All fresh, dried, or frozen fruit. Canned fruits that are in their natural juice and do not have sugar added to them. Vegetables Fresh or frozen vegetables that are raw, steamed, roasted, or grilled. Low- sodium or reduced-sodiumtomato and vegetable juice. Low-sodium or reduced-sodium tomato sauce and tomato paste. Low-sodium or reduced-sodium canned vegetables. Grains Whole-grain or whole-wheat bread. Whole-grain or whole-wheat pasta. Brown rice. Oatmeal. Quinoa. Bulgur. Whole-grain and low-sodium cereals. Antonella bread. Low- fat, low-sodium crackers. Whole-wheat flour tortillas. Meats and other proteins Skinless chicken or turkey. Ground chicken or turkey. Pork with fat trimmed off. Fish and seafood. Egg whites. Dried beans, peas, or lentils. Unsalted nuts, nut butters, and seeds. Unsalted canned beans. Lean cuts of beef with fat trimmed off. Low-sodium, lean precooked or cured meat, such as sausages or meat loaves. Dairy Low-fat (1%) or fat-free (skim) milk. Reduced-fat, low-fat, or fat-free cheeses. Nonfat, low-sodiumricotta or cottage cheese. Low-fat or nonfat yogurt. Low-fat, low-sodium cheese. Fats and oils Soft margarine without trans fats. Vegetable oil. Reduced-fat, low-fat, or light mayonnaise and salad dressings (reduced-sodium). Canola, safflower, olive, avocado, soybean, and sunflower oils. Avocado. Seasonings and condiments Herbs. Spices. Seasoning mixes without salt. Other foods Unsalted popcorn and pretzels. Fat-free sweets. The items listed above may not be all the foods and drinks you can have. Talk to a dietitian to learn more. What foods should I avoid? Fruits Canned fruit in a light or heavy syrup. Fried fruit. Fruit in cream or butter sauce. Vegetables Creamed or fried vegetables. Vegetables in a cheese sauce. Regular canned vegetables that are not marked as low-sodium or reduced-sodium. Regular canned tomato sauce and paste that are not marked as low-sodium or reduced-sodium. Regular tomato and vegetable juices that are not marked as low-sodium or reduced-sodium. Pickles. Olives. Grains Baked goods made with fat, such as croissants, muffins, or some breads. Dry pasta or rice meal packs. Meats and other proteins Fatty cuts of meat. Ribs. Fried meat. Branch. Bologna, salami, and other precooked or cured meats, such as sausages or meat loaves, that are not lean and low in sodium. Fat from the back of a pig (fatback). Bratwurst. Salted nuts and seeds. Canned beans with added salt. Canned or smoked fish. Whole eggs or egg yolks. Chicken or turkey with skin. Dairy Whole or 2% milk, cream, and [id number]. Whole or full-fat cream cheese. Whole-fat or sweetened yogurt. Full-fat cheese. Nondairy creamers. Whipped toppings. Processed cheese and cheese spreads. Fats and oils Butter. Stick margarine. Lard. Shortening. Ghee. Branch fat. Tropical oils, such as coconut, palm kernel, or palm oil. Seasonings and condiments Onion salt, garlic salt, seasoned salt, table salt, and sea salt. [facility] sauce. Tartar sauce. Barbecue sauce. Teriyaki sauce. Soy sauce, including reduced-sodium soy sauce. Steak sauce. Canned and packaged gravies. Fish sauce. Oyster sauce. Cocktail sauce. Store-bought horseradish. Ketchup.Mustard. Meat flavorings and tenderizers. Bouillon cubes. Hot sauces. Pre-made or packaged marinades. Pre-made or packaged taco seasonings. Relishes. Regular salad dressings. Other foods Salted popcorn and pretzels. The items listed above may not be all the foods and drinks you should avoid. Talk to a dietitian daksha more. Where to find more information National Heart, Lung, and Blood [place] (NHLBI): nhlbi.nih.gov [place] [employer] (AHA): heart.org Academy of Nutrition and Dietetics: eatright.org National Kidney Foundation (NKF): kidney.org This information is not intended to replace advice given to you by your health care provider. Make sure you discuss any questions you have with your health care provider. Document Revised: 02/20/2023 Document Reviewed: 02/20/2023 [facility] Patient Education 2023 [employer]. 02/03/2024 15:42:35 Breast Self-Awareness Breast Self-Awareness Breast self-awareness means being familiar with how your breasts look and feel. It involves checking your breasts regularly and telling your health care provider about any changes. Practicing breast self-awareness helps to maintain breast health. Sometimes, changes are not harmful (are benign). Other times, a change in your breasts can be a sign of a serious medical problem. Being familiar with the look and feel of your breasts can help you catch a breast problem while it is still small and can be treated. You should do breast self-exams even if you have breast implants. What you need: A mirror. A well-lit room. A pillow or other soft object. How to do a breast self-exam A breast self-exam is one way to learn what is normal for your breasts and whether your breasts arechanging. To do a breast self-exam: Look for changes 1.Remove all the clothing above your waist. 2.it coordinator front of a mirror in a room with good lighting. 3.Put your hands down at your sides. 4.Compare your breasts in the mirror. Look for differences between them (asymmetry), such as: Differences in shape. Differences in size. Puckers, dips, and bumps in one breast and not the other. 5.Look at each breast for changes in the skin, such as: Redness. Scaly areas. Skin thickening. Dimpling. Open sores (ulcers). 6.Look for changes in your nipples, such as: Discharge. Bleeding. Dimpling. Redness. A nipple that looks pushed in (retracted), or that has changed position. Feel for changes Carefully feel your breasts for lumps and changes. It is best to do this self- exam while lying down. Follow these steps to feel each breast: 1.Place a pillow under the shoulder of one side of your body. 2.Place the arm of that side of your body behind your head. 3.Feel the breast of that side of your body using the hand of the opposite arm. To do this: Start in the nipple area and use the pads of your three middle fingers to make - inch (2 cm) overlapping circles. Use light, medium, and then firm pressure as you feel your breast, gently covering the entire breast area and armpit. 4.Continue the overlapping circles, moving downward over the breast until you feel your ribs below your breast. 5.Then, make circles with your fingers going upward until you reach your collarbone. 6.Next, make circles by moving outward across your breast and into your armpit area. 7.Squeeze the nipple. Check for discharge and lumps. 8.Repeat steps 1 7 to check your other breast. 9.Sit or engineering supervisor the tub or shower. 10.With soapy water on your skin, feel each breast the same way you did when you were lying down. Write down what you find Writing down what you find can help you remember what to discuss with your health care provider. Write down: What is normal for each breast. Any changes that you find in each breast. These include: ?The kind of changes you find. ?Any pain or tenderness. ?Size and location of any lumps. Where you are in your menstrual cycle, if you are still getting your menstrual period (menstruating). General tips If you are , the best time to examine your breasts is after a feeding or after using abreast pump. If you menstruate, the best time to examine your breasts is 5 7 days after your menstrual period. Breasts are generally lumpier during menstrual periods, and it may be more difficult to notice changes. With time and practice, you will become more familiar with the differences in your breasts and morecomfortable with the exam. Contact a health care provider if: You see a change in the shape or size of your breasts or nipples. You see a change in the skin of your breast or nipples, such as a reddened or scaly area. You have unusual discharge from your nipples. You find a new lump or thick area. You have breast pain. You have any concerns about your breast health. Summary Breast self-awareness includes looking for physical changes in your breasts and feeling for any changes within your breasts. Breast self-awareness should be done in front of a mirror in a well-lit room. If you menstruate, the best time to examine your breasts is 5 7 days after your menstrual period. Tell your health care provider about any changes you notice in your breasts. Changes include changes in size, changes on the skin, pain or tenderness, or unusual fluid from your nipples. This information is not intended to replace advice given to you by your health care provider. Make sure you discuss any questions you have with your health care provider. Document Revised: 07/11/2022 Document Reviewed: 12/06/2021 [facility] Patient Education 2023 [facility] [employer] 02/03/2024 15:42:34 BMI for Adults BMI for Adults Body mass index (BMI) is a number found using a person's weight and height. BMI can help tell how much of a person's weight is made up of fat. BMI does not measure body fat directly. It is used instead of tests that directly measure body fat, which can be difficult and expensive. What are BMI measurements used for? BMI is useful to: Find out if your weight puts you at higher risk for medical problems. Help recommend changes, such as in diet and exercise. This can help you reach a healthy weight. BMIscreening can be done again to see if these changes are working. How is BMI calculated? Your height and weight are measured. The BMI is found from those numbers. This can be done with [place] or metric measurements. Note that charts and online BMI calculators are available to help you findyour BMI quickly and easily without doing these calculations. To calculate your BMI in [place] measurements: 1.Measure your weight in pounds (lb). 2.Multiply the number of pounds by 703. So, for an adult who weighs 150 lb, multiply that number by 703: 150 x 703, which equals 105,450. 3.Measure your height in inches. Then multiply that number by itself to get a measurement called inches squared. So, for an adult who is 70 inches tall, the inches squared measurement is 70 inches x 70 inches, which equals 4,900 inches squared. 4.Divide the total from step 2 (number of lb x 703) by the total from step 3 (inches squared): 105,450 4,900 = 21.5. This is your BMI. To calculate your BMI in metric measurements: 1.Measure your weight in kilograms (kg). For this example, the weight is 70 kg. 2.Measure your height in meters (m). Then multiply that number by itself to get a measurement called meters squared. So, for an adult who is 1.75 m tall, the meters squared measurement is 1.75 m x 1.75 m, which equals 3.1 meters squared. 3.Divide the number of kilograms (your weight) by the meters squared number. In this example: 70 3.1 = 22.6. This is your BMI. What do the results mean? BMI charts are used to see if you are underweight, normal weight, overweight, or obese. The following guidelines will be used: Underweight: BMI less than 18.5. Normal weight: BMI between 18.5 and 24.9. Overweight: BMI between 25 and 29.9. Obese: BMI of 30 or above. BMI is a tool and cannot diagnose a condition. Talk with your health care provider about what your BMI means for you. Keep these notes in mind: Weight includes fat and muscle. Someone with a muscular build, such as an athlete, may have a BMI that is higher than 24.9. In cases like these, BMI is not a correct measure of body fat. If you have a BMI of 25 or higher, your provider may need to do more testing to find out if excess body fat is the cause. BMI is measured the same way for males and females. Females usually have more body fat than males of the same height and weight. Where to find more information For more information about BMI, including tools to quickly find your BMI, go to: Centers for Disease Control and Prevention: cdc.gov [place] [employer]: heart.org National Heart, Lung, and Blood [place]: nhlbi.nih.gov This information is not intended to replace advice given to you by your health care provider. Make sure you discuss any questions you have with your health care provider. Document Revised: 10/24/2022 Document Reviewed: 10/17/2022 [employer] Patient Education 2023 [employer]. [facility] [place] 12-17-2024 NotePatient Education Nutrition DASH Eating Plan DASH stands for Dietary Approaches to Stop Hypertension. The DASH eating plan is a healthy eating plan that has been shown to: ??? Lower high blood pressure (hypertension). ??? Reduce your risk for type 2 diabetes, heart disease, and stroke. ??? Help with weight loss. What are tips for following this plan? Reading food labels ??? Check food labels for the amount of salt (sodium) per serving. Choose foods with less than 5 percent of the Daily Value (DV) of sodium. In general, foods with less than 300 milligrams (mg) of sodium per serving fit into this eating plan. ??? To find whole grains, look for the word whole as the first word in the ingredient list. Shopping ??? Buy products labeled as low-sodium or no salt added. ??? Buy fresh foods. Avoid canned foods and pre-made or frozen meals. Cooking ??? Try not to add salt when you cook. Use salt-free seasonings or herbs instead of table salt or sea salt. Check with your health care provider or pharmacist before using salt substitutes. ??? Do not mares foods. Cook foods in healthy ways, such as baking, boiling, grilling, roasting, or broiling. ??? Cook using oils that are good for your heart. These include olive, canola, avocado, soybean, and sunflower oil. Meal planning ??? Eat a balanced diet. This should include: ? 4 or more servings of fruits and 4 or more servings of vegetables each day. Try to fill half of your plate with fruits and vegetables. ? 6?8 servings of whole grains each day. ? 6 or less servings of lean meat, poultry, or fish each day. 1 oz is 1 serving. A 3 oz (85 g) serving of meat is about the same size as the palm of your hand. One egg is 1 oz (28 g). ? 2?3 servings of low-fat dairy each day. One serving is 1 cup (237 mL). ? 1 serving of nuts, seeds, or beans 5 times each week. ? 2?3 servings of heart-healthy fats. Healthy fats called omega-3 fatty acids are found in foods such as walnuts, flaxseeds, fortified milks, and eggs. These fats are also found in cold-water fish, such as sardines, salmon, and mackerel. ??? Limit how much you eat of: ? Canned or prepackaged foods. ? Food that is high in trans fat, such as fried foods. ? Food that is high in saturated fat, such as fatty meat. ? Desserts and other sweets, sugary drinks, and other foods with added sugar. ? Full-fat dairy products. ??? Do not salt foods before eating. ??? Do not eat more than 4 egg yolks a week. ??? Try to eat at least 2 vegetarian meals a week. ??? Eat more home-cooked food and less restaurant, buffet, and fast food. Lifestyle ??? When eating at a restaurant, ask if your food can be made with less salt or no salt. ??? If you drink alcohol: ? Limit how much you have to: ? 0?1 drink a day if you are female. ? 0?2 drinks a day if you are male. ? Know how much alcohol is in your drink. In the [place] one drink is one 12 oz bottle of beer (355 mL), one 5 oz glass of wine (148 mL), or one 1? oz glass of hard liquor (44 mL). General information ??? Avoid eating more than 2,300 mg of salt a day. If you have hypertension, you may need to reduceyour sodium intake to 1,500 mg a day. ??? Work with your provider to stay at a healthy body weight or lose weight. Ask what the best weight range is for you. ??? On most days of the week, get at least 30 minutes of exercise that causes your heart to beat faster. This may include walking, swimming, or biking. ??? Work with your provider or dietitian to adjust your eating plan to meet your specific calorie needs. What foods should I eat? Fruits All fresh, dried, or frozen fruit. Canned fruits that are in their natural juice and do not have sugar added to them. Vegetables Fresh or frozen vegetables that are raw, steamed, roasted, or grilled. Low- sodium or reduced-sodiumtomato and vegetable juice. Low-sodium or reduced-sodium tomato sauce and tomato paste. Low-sodium or reduced-sodium canned vegetables. Grains Whole-grain or whole-wheat bread. Whole-grain or whole-wheat pasta. Brown rice. Oatmeal. Quinoa. Bulgur. Whole-grain and low-sodium cereals. Antonella bread. Low- fat, low-sodium crackers. Whole-wheat flour tortillas. Meats and other proteins Skinless chicken or turkey. Ground chicken or turkey. Pork with fat trimmed off. Fish and seafood. Egg whites. Dried beans, peas, or lentils. Unsalted nuts, nut butters, and seeds. Unsalted canned beans. Lean cuts of beef with fat trimmed off. Low-sodium, lean precooked or cured meat, such as sausages or meat loaves. Dairy Low-fat (1%) or fat-free (skim) milk. Reduced-fat, low-fat, or fat-free cheeses. Nonfat, low-sodiumricotta or cottage cheese. Low-fat or nonfat yogurt. Low-fat, low-sodium cheese. Fats and oils Soft margarine without trans fats. Vegetable oil. Reduced-fat, low-fat, or light mayonnaise and salad dressings (reduced-sodium). Canola, safflower, olive, avocado, soybean, and sunflower oils (more content not included)...[facility]12-09-2024 Evaluation + Plan noteExtracted from: Title:ANES Post-operative Note - MAC Author:Jarad Galaviz Jr., DO Date:01/26/24 Plan Transfer/Discharge: Transfer/Discharge Discharge when meets criteria. Extracted from: Title:Bilateral genicular RFA Author:Cait Mackenzie DO Date:01/26/24 Diagnosis: M25.561, right kn ee pain. M25.562, left knee pain Procedure: Bilateral knee genicular nerves radiofrequency ablation under fluoroscopic guidance Anesthesia: MAC Complications: none Patient was met in the preoperative holding area and risks, benefits, and alternatives of procedure were discussed with patient. The patient provided informed consent to move forward with the procedure. Once the patient was brought to the operating room, she was placed on monitors and an anesthetic was started. Both knees were exposed, prepped, and draped in the usual sterile fashion using ChloraPrep and sterile towels. On the left side first, using fluoroscopic guidance, the expected anatomic positions of the superior medial, superior lateral and inferior medial genicular nerves were identified and the skin and subcutaneous tissue were anesthetized anticipated needle trajectory with lidocaine. Next, 18-gauge radiofrequency needles were inserted and directed by fluoroscopic guidance to the above-mentioned target sites. Final needle tip positions were confirmed in the AP and lateral views. Next, motor stimulation was conducted at 2.0 V at each needle site and revealed no lower extremity contractions or sensations distal to the knee or proximal to the knee for the patient. Next, after negative aspiration, 1.0 mL of 2.0% lidocaine was injected through each needle tip. Then an appropriate amount of time was allowed for the local anesthetic to set up. Next, radiofrequency lesioning was carried out at 80 degrees for 80 seconds x 2 with rotation of the needle tip to 90 degrees in between lesioning. The needles were removed, and bandages were applied. On the right side next, using fluoroscopic guidance, the expected anatomic positions of the superior medial, superior lateral and inferior medial genicular nerves were identified and the skin and subcutaneous tissue were anesthetized anticipated needle trajectory with lidocaine. Next, 18-gauge radiofrequency needles were inserted and directed by fluoroscopic guidance to the above-mentioned target sites. Final needle tip positions were confirmed in the AP and lateral views. Next, motor stimulation was conducted at 2.0 V at each needle site and revealed no lower extremity contractions or sensations distal to the knee or proximal to the knee for the patient. Next, after negative aspiration, 1.0 mL of 2.0% lidocaine was injected through each needle tip. Then an appropriate amount of time was allowed for the local anesthetic to set up. Next, radiofrequency lesioning was carried out at 80 degrees for 80 seconds x 2 with rotation of the needle tip to 90 degrees in between lesioning. The needles were removed, and bandages were applied. The patient tolerated procedure well with no immediate complications and was brought to recovery room in stable condition. Patient had 5/5 bilateral lower extremity strength postprocedure. Follow-up: The patient will update us on the response to this procedure, and agrees to continue currently prescribed/recommended therapies. Extracted from: Title:ANES Pre-operative Note - Pain Mgt Author: Jarad Hansen Jr., DO Date:01/26/24 Plan [place] [employer] Anesthesiologists (ASA) physical status classification: Class III. Anesthetic Preoperative Plan: Anesthesia Monitored anethesia care. Future Appointments Appointment Date:02/02/2024 01:00:00 PM Scheduled Provider: Location:[facility] Appointment Type: Medicare Wellness Subsequent Appointment Date:02/02/2024 01:40:00 PM Scheduled Provider:Igor Ly DO Location:[facility] Appointment Type: Open Appointment Date:02/24/2024 08:00:00 AM Scheduled Provider:Blayne Mackenzie DO [facility] [place] Appointment Type:Pain Management - Follow Up (FT) [facility] [id number] NoteProgress Note-Physician Patient: JESIKA CORTEZ MRN: [id number] Age: 73 years Sex: Female : 1950 Associated Diagnoses: None Author: Jarad Hansen Jr., DO Postoperative Information Postoperative disposition: Postoperative disposition: To PACU. Optimetrix number: Optimetrix number [id number]. Anesthetic utilized: Monitored anesthesia care. Physical Examination Vital signs stable. Pain Assessment: Controlled. General: Awake, Alert, Appropriate. Respiratory: Adequate air exchange, Equal bilateral chest wall expansion, Non-labored. Cardiovascular: Stable, Normal peripheral perfusion. Neurological: Normal sensory function. Assessment Anesthetic outcome No anesthetic complications noted. Review / Management Condition: Stable. Plan Transfer/Discharge: Transfer/Discharge Discharge when meets criteria.[facility]:Result Comment: Electronically Signed By: Jarad Hansen Jr., DO\.br\Date and Time Signed: 01/26/24 10:57 [id number] NoteProgress Note-Physician Patient: JESIKA CORTEZ Age: 73 years Sex: Female : 1950 Associated Diagnoses: None Author: Jarad Hansen Jr., DO Preoperative Information NPO after midnight Review of Systems Eye Respiratory: Negative except as documented in history of present illness. Cardiovascular: Negative except as documented in history of present illness. Health Status Allergies: Allergic Reactions (Selected) Severity Not Documented Lyrica- Swelling. Nonallergic Reactions (Selected) Severity Not Documented Anabolic steroids- No reactions were documented., Allergies (2) Active Severity Reaction anabolic steroids None Documented Lyrica swelling Current medications: (Selected) Inpatient Medications Ordered NS 500 mL Soln-IV 500 mL: 500 mL, IV, 15 mL/hr, Routine, Start date 01/26/24 7:39:00 EST, 33.3 hour(s), Total volume (mL): 500 Prescriptions Prescribed Handicap Placard: Handicap Placard, See Instructions, 1 EA, 0, Expires 08/2028, Supply Metoprolol tartrate 25 mg Tab: 25 mg = 1 tab(s), Oral, BID, # 180 tab(s), Refills(s) 3, Pharmacy: [facility], 168, cm, 05/27/23 11:56:00 EDT, Height/Length Dosing, 108.6, kg, 05/27/23 11:56:00 EDT, Weight Dosing PTTD ankle brace: PTTD ankle brace, See Instructions, 1 EA, 0, one brace, Supply, 168, cm, 04/02/2409:30:00 EST, Height/Length Dosing, 108.6, kg, 04/02/23 10:30:00 EST, Weight Dosing acetaminophen-oxycodone 325 mg-5 mg Tab: 1 tab(s), Oral, BID for pain, 60 tab(s), Refill(s) 0, [facility]/pharmacy #[id number], 168, cm, 12/19/23 11:10:00 EDT, Height/Length Dosing, 105, kg, 12/19/23 11:10:00 EDT, Weight Dosing atorvastatin 40 mg Tab: 40 mg = 1 tab(s), Oral, Daily, # 90 tab(s), Refills(s) 3, Pharmacy: [facility], 168, cm, 05/27/23 11:56:00 EDT, Height/Length Dosing, 108.6, kg, 05/27/23 11:56:00 EDT, Weight Dosing diclofenac potassium 50 mg oral tablet: 50 mg = 1 tab(s), Oral, BID, PRN for arthritis, Do not takewith other anti-inflammatories, # 60 tab(s), Refills(s) 2, Pharmacy: [facility]/pharmacy #[id number], 168, cm, 12/08/23 11:52:00 EDT, Height/Length Dosing, 108.6, kg, 12/08/23 11:52:00 EDT, Weight Dosing gabapentin 300 mg Cap: 600 mg = 2 cap(s), Oral, Once a day (at bedtime), # 180 EA, Refills(s) 3, Pharmacy: [facility], 168, cm, 05/27/23 11:56:00 EDT, Height/Length Dosing, 108.6, kg, 05/27/23 11:56:00 EDT, Weight Dosing hydrochlorothiazide-lisinopril 25 mg-20 mg Tab: 2 tab(s), Oral, Daily, 180 tab(s), Refill(s) 3, [facility], 168, cm, 05/27/23 11:56:00 EDT, Height/Length Dosing, 108.6, kg, 05/27/23 11:56:00 EDT, Weight Dosing Documented Medications Documented Aleve: 220 mg, Oral, Once, Refills(s) 0 Super B Complex oral tablet: Refill(s) 0, Oral, 0 Refill(s) Tylenol: PRN as needed for pain, Refills(s) 0 Vitamin D3 2000 intl units: 2,000 International_Unit, Oral, Daily, Refills(s) 0, Prophylaxis latanoprost ophthalmic: Eye-Both, Refill(s) 0 timolol Opth 0.5% Zeynep 15 mL: 1 drop(s), BID, Refill(s) 0, Home Medications (14) Active acetaminophen-oxycodone 325 mg-5 mg Tab 1 tab(s), PRN, Oral, BID Aleve 220 mg, Oral, Once atorvastatin 40 mg Tab 40 mg = 1 tab(s), Oral, Daily diclofenac potassium 50 mg oral tablet 50 mg = 1 tab(s), PRN, Oral, BID gabapentin 300 mg Cap 600 mg = 2 cap(s), Oral, Once a day (at bedtime) Handicap Placard See Instructions hydrochlorothiazide-lisinopril 25 mg-20 mg Tab 2 tab(s), Oral, Daily latanoprost ophthalmic , Eye-Both Metoprolol tartrate 25 mg Tab 25 mg = 1 tab(s), Oral, BID PTTD ankle brace See Instructions Super B Complex oral tablet timolol Opth 0.5% Zeynep 15 mL 1 drop(s), BID Tylenol , PRN Vitamin D3 2000 intl units 2,000 International_Unit, Oral, Daily , Medications (1) Active Scheduled: (0) Continuous: (1) Sodium Chloride 0.9% 500 mL 500 mL, IV, 15 mL/hr PRN: (0) Problem list: All Problems Bilateral primary osteoarthritis of knee / SNOMED CT 584526370 / Confirmed Dorsalgia of lumbar region / SNOMED CT 054850163 / Confirmed Edema of left lower extremity / SNOMED CT 4127991880 / Confirmed Essential hypertension / SNOMED CT 08022668 / Confirmed Heart murmur / SNOMED CT 841823423 / Confirmed Hyperlipidemia / SNOMED CT 19883297 / Confirmed Morbid obesity / SNOMED CT 803987276 / Confirmed added per 11/12/2023 query response. Osteoarthritis of shoulders, bilateral / SNOMED CT 9524959397 / Confirmed Canceled: Hypertension / SNOMED CT 4816681287 Canceled: Obesity / SNOMED CT 3286272644 Histories Past Medical History: No active or resolved past medical history items have been selected or recorded. Procedure history: Bilateral Genicular Nerve Block ([id number]) on 12/16/2023 at 73 Years. Colonoscopy ([id number]) on 09/20/2020 at 69 Years. back laminectomy. lumbar fusion. Comments: 02/05/2023 9:30 Winnie Ortez PT 1998 hysterectomy. cataract surgery. So (more content not included)...[facility] HospitalComment on above: Result Comment: Electronically Signed By: Jarad Hansen Jr., DO\Date and Time Signed: 01/26/24 08:06 [id number] Hospital Discharge instructions Follow Up Care 01/09/2024 11:43:54 With:Igor Ly DO, FAM Address: [address] [place] [address]- When:4 weeks Comments:4 WEEKS FOLLOWUP [facility] [place] 11-07-2024 Telephone encounter Note* Telephone Encounter - Clarissa Monterogger - 12/25/2023 9:17 AM EST Patient left vm very concerned. She stated something is very wrong. She was told to go to [facility] for gel injections and they do not want to do them. [facility] gave her a knee ablation. Patient stated it's the most painful thing she has ever went through. Patient is arguing with [facility] she stated. Please call patient at [phone]. [facility] [id number] Miscellaneous Notes* Telephone Encounter - Clarissa Monterogger - 12/25/2023 9:17 AM EST Patient left vm very concerned. She stated something is very wrong. She was told to go to [facility] for gel injections and they do not want to do them. [facility] gave her a knee ablation. Patient stated it's the most painful thing she has ever went through. Patient is arguing with [facility] she stated. Please call patient at [phone]. documented in this encounterNevada Regional Medical [id number] Evaluation + Plan note Extracted from: Title:Pain Managment Follow up Author:Maribel Ventura Date:12/19/23 Impression and Plan Patient is a 73-year-old female with a past medical history significant for bilateral knee pain and bilateral knee arthritis. She underwent recent bilateral genicular nerve blocks with significant short-term relief. She had 100% relief for 8 hours. She does not have any pain at that time. Unfortunate, the procedure was so uncomfortable for her she cannot imagine having to go through that again. She states that she had pain it was a 12/10 and she was screaming in pain during the procedure. She wonders if we can give her moderate sedation MAC anesthesia. The risks of this were discussed. She voiced understanding. We will plan to pursue bilateral genicular RFA with anesthesia. She will follow-up 3 weeks after the RFA for reevaluation. In the meantime she will continue on gabapentin. OARRS reviewed. She does not require refill. She call when she does KILEY score: 33%. Future Appointments Appointment Date:01/13/2024 11:00:00 AM Scheduled Provider:Igor Ly DO Location:[facility] Appointment Type: Open Appointment Date:02/09/2024 08:30:00 AM Scheduled Provider: Location:[facility] Appointment Type: Medicare Wellness Subsequent Appointment Date:02/09/2024 09:40:00 AM Scheduled Provider:Igor Ly DO Location:[facility] Appointment Type: Open [facility] 11-01-2024 NoteConsultation Note Patient: JESIKA CORTEZ Age: 73 years Sex: Female : 1950 Associated Diagnoses: None Author: Maribel Hurtado PA-C Subjective Chief complaint 12/19/2023 10:51 EDT Bilateral Knee Pain . Patient is a 73-year-old female. She presents today for follow-up after undergoing bilateral genicular nerve block. This was done on 12/16/2023. It gave her 8 hours of 90 to 100% relief. On her pain scale at that time she marked no pain. Unfortunate, by the 24-hour ralph her pain was back to a 6/10.More right- sided than left-sided knee pain. She felt that the amount of relief she got from the genicular nerve blocks was beneficial but she states that the procedure was so uncomfortable she was screaming out in pain and she just could not wait for it to be done. She states that she cannot imagine having to go through that again. She states that is the most miserable thing she has ever gone through and the procedure itself caused pain that was a 12/10. Historically, she has undergone therapy that has not helped. She is due naproxen that has not helped. She is using gabapentin 600 mg at bedtime with some improvement not enough. Health Status Allergies: Allergic Reactions (Selected) Severity Not Documented Lyrica- Swelling. Nonallergic Reactions (Selected) Severity Not Documented Anabolic steroids- No reactions were documented., Allergies (2) Active Severity Reaction anabolic steroids None Documented Lyrica swelling Current medications: (Selected) Prescriptions Prescribed Handicap Placard: Handicap Placard, See Instructions, 1 EA, 0, Expires 08/2028, Supply Metoprolol tartrate 25 mg Tab: 25 mg = 1 tab(s), Oral, BID, # 180 tab(s), Refills(s) 3, Pharmacy: [facility], 168, cm, 05/27/23 11:56:00 EDT, Height/Length Dosing, 108.6, kg, 05/27/23 11:56:00 EDT, Weight Dosing PTTD ankle brace: PTTD ankle brace, See Instructions, 1 EA, 0, one brace, Supply, 168, cm, 04/02/2409:30:00 EST, Height/Length Dosing, 108.6, kg, 04/02/23 10:30:00 EST, Weight Dosing acetaminophen-oxycodone 325 mg-5 mg Tab: 1 tab(s), Oral, BID for pain, 60 tab(s), [id number], [facility], 12/08/23 11:52:00 EDT, Height/Length Dosing, 108.6, kg, 12/08/23 11:52:00 EDT, Weight Dosing atorvastatin 40 mg Tab: 40 mg = 1 tab(s), Oral, Daily, # 90 tab(s), Refills(s) 3, Pharmacy: [facility], 168, cm, 05/27/23 11:56:00 EDT, Height/Length Dosing, 108.6, kg, 05/27/23 11:56:00 EDT, Weight Dosing diclofenac potassium 50 mg oral tablet: 50 mg = 1 tab(s), Oral, BID, PRN for arthritis, Do not takewith other anti-inflammatories, # 60 tab(s), Refills(s) 2, [id number], cm, 12/08/23 11:52:00 EDT, Height/Length Dosing, 108.6, kg, 12/08/23 11:52:00 EDT, Weight Dosing gabapentin 300 mg Cap: 600 mg = 2 cap(s), Oral, Once a day (at bedtime), # 180 EA, Refills(s) 3, Pharmacy: [facility], 168, cm, 05/27/23 11:56:00 EDT, Height/Length Dosing, 108.6, kg, 05/27/23 11:56:00 EDT, Weight Dosing hydrochlorothiazide-lisinopril 25 mg-20 mg Tab: 2 tab(s), Oral, Daily, 180 tab(s), Refill(s) 3, [facility], 168, cm, 05/27/23 11:56:00 EDT, Height/Length Dosing, 108.6, kg, 05/27/23 11:56:00 EDT, Weight Dosing Documented Medications Documented Aleve: 220 mg, Oral, Once, Refills(s) 0 Super B Complex oral tablet: Refill(s) 0, Oral, 0 Refill(s) Tylenol: PRN as needed for pain, Refills(s) 0 Vitamin D3 2000 intl units: 2,000 International_Unit, Oral, Daily, Refills(s) 0, Prophylaxis latanoprost ophthalmic: Eye-Both, Refill(s) 0 timolol Opth 0.5% Zeynep 15 mL: 1 drop(s), BID, Refill(s) 0 Problem list: All Problems Dorsalgia of lumbar region / SNOMED CT 850886639 / Confirmed Heart murmur / SNOMED CT 903534132 / Confirmed Essential hypertension / SNOMED CT 34318169 / Confirmed Hyperlipidemia / SNOMED CT 34475782 / Confirmed Osteoarthritis of shoulders, bilateral / SNOMED CT 9384045766 / Confirmed Bilateral primary osteoarthritis of knee / SNOMED CT 373632165 / Confirmed Edema of left lower extremity / SNOMED CT 8962550899 / Confirmed Morbid obesity / SNOMED CT 156109245 / Confirmed added per 11/12/2023 query response. Canceled: Hypertension / SNOMED CT 8057765243 Canceled: Obesity / SNOMED CT 8901959586 Objective Vital Signs 12/19/2023 10:51 EDT Peripheral Pulse Rate 57 bpm LOW Respiratory Rate 18 br/min Systolic Blood Pressure 127 mmHg Diastolic Blood Pressure 78 mmHg Mean Arterial Pressure, Cuff 94 mmHg General: Alert and oriented, No acute distress. Eye: Normal conjunctiva. HENT: Normocephalic, Normal hearing. Cardiovascular: No edema. Musculoskeletal Normal range of motion. Normal strength. Pain with movement of both knees Integumentary: Warm, Dry, [place]. Neurologic: Alert, Oriented. Psychiatric: Cooperative, Appropriate mood & affect. 14 point review of systems was negative unless otherwise n (more content not included)...[facility] HospitalComment on above:Result Comment: Electronically Signed By: Maribel Hurtado PA-C\.br\Date and Time Signed: 12/19/23 11:15 [id number] Evaluation + Plan noteExtracted from: Title:Bilateral genicular nerve blocks Author:Blayne Bell DO Date:12/16/23 Diagnosis: M25.561 Right kne e pain, M25.562 Left knee pain. Procedure: Bilateral knee genicular nerve block under fluoroscopic guidance Anesthesia: Local Complications: none Patient was met in the preoperative holding area and risks, benefits, and alternatives of procedure were discussed with patient. The patient provided informed consent to move forward with the procedure. The patient was monitored inclusive of blood pressure and pulse oximetry. The knee was exposed, prepped, and draped in the usual sterile fashion using ChloraPrep and sterile towels. Using fluoroscopic guidance, the expected anatomic positions of the superior medial, superior lateral and inferior medial genicular nerves were identified and the skin and subcutaneous tissue were anesthetized anticipated needle trajectory with lidocaine. Next, 22- gauge spinal needles were inserted and directed by fluoroscopic guidance to the above-mentioned target sites. Final needle tip positions were confirmed in the AP and lateral views. Injection of Omnipaque contrast to negative aspiration showed no vascular uptake. After negative aspiration, 0.5 mL of 0.5% bupivacaine was injected at each of the needle tips. The needles were removed, and bandages were applied. The patient tolerated procedure well with no immediate complications and was brought to recovery room in stable condition. Follow-up: The patient will update us on the response to this procedure, and agrees to continue currently prescribed/recommended therapies. Future Appointments Appointment Date:12/19/2023 10:45:00 AM Scheduled Provider:Maribel Hurtado PA-C Location:[facility] Appointment Type:Pain Management - Follow Up (FT) Appointment Date:01/13/2024 11:00:00 AM Scheduled Provider:Igor Ly DO Location:[facility] Appointment Type: Open Appointment Date:02/09/2024 08:30:00 AM Scheduled Provider: Location:[facility] Appointment Type: Medicare Wellness Subsequent Appointment Date:02/09/2024 09:40:00 AM Scheduled Provider:Igor Ly DO Location:[facility] Appointment Type: Open [facility] 10-07-2024 Hospital Discharge instructions Follow Up Care 11/24/2023 14:41:31 With:Igor Ly DO, [facility] Address: [address] [place] [id number]- When:6 weeks Comments:6 WEEKS FOLLOWUP [facility] 10-04-2024 Hospital Discharge instructions Follow Up Care 11/21/2023 15:31:25 With:Igor Ly DO, [facility] Address: [address] [place] [id number]- When:2 weeks Comments:2 WEEKS [facility] 10-04-2024 Evaluation + Plan noteExtracted from: Title:Pain Managment Follow up Author:Maribel Ventura Date:11/21/23 Impression and Plan Patient is a 72-year-old female with a past medical history significant for bilateral knee pain and bilateral knee arthritis. She underwent knee injections with her orthopedic doctor without any long-term relief. She went to the ER. She takes tramadol given to her by her PCP and was given San Juan in the ED. She was told she was not to take both so she is using them sparingly. She wonders what she is going to do for the pain. We discussed increasing her gabapentin as I feel that this would be more appropriate than increasing her opiate burden and we discussed bilateral genicular nerve blocks. This will be done in the OR under fluoroscopy for diagnostic purposes. If she gets significant short-term relief she may be a future candidate for RFA. Procedure was discussed. Risk and benefits were discussed. Patient is agreeable. She will follow-up 1 week after the injection for reevaluation. Call clinic sooner if necessary. OARRS reviewed. KILEY score: 44%. Future Appointments Appointment Date:11/24/2023 02:00:00 PM Scheduled Provider:Igor Ly DO Location:[facility] Appointment Type: ER/Hospital Follow Up Appointment Date:02/09/2024 08:30:00 AM Scheduled Provider: Location:[facility] Appointment Type: Medicare Wellness Subsequent Appointment Date:02/09/2024 09:40:00 AM Scheduled Provider:Igor Ly DO Location:[facility] Appointment Type:[facility] 10-04-2024 NoteConsultation Note Patient: JESIKA CORTEZ Age: 72 years Sex: Female : 1950 Associated Diagnoses: None Author: Maribel Hurtado PA-C Subjective Chief complaint 11/21/2023 10:08 EDT Bilateral knee pain 11/20/2023 13:12 EDT Patient presents to the ER today d/t bilateral knee pain that started a month ago and patient got b/L cortisone shots in the them. Sanat states that her knees began hurting again this past weekend. Saw the PA this week and was told she needed to folllow . Patient is a 72-year-old female. She has a past medical history significant for bilateral knee painand bilateral knee arthritis. She saw her orthopedic doctor on November 17 after having steroid injections on October 20. She only had 3 weeks of relief so they referred her here. She was given an appointment for today and last night she went to the ER for the pain. She was given hydrocodone and wonders up getting a refill of this while she awaits treatments for her knee pain. She has pain that mayra 08/26. She states that surgery has been discussed but she wants to try and avoid this. She wonderswhat she can do to help with the knee pain in the meantime. It is a 08/26. She was given San Juan in the ED yesterday/this morning. Health Status Allergies: Allergic Reactions (Selected) Severity Not Documented Lyrica- Swelling. Nonallergic Reactions (Selected) Severity Not Documented Anabolic steroids- No reactions were documented., Allergies (2) Active Severity Reaction anabolic steroids None Documented Lyrica swelling Current medications: (Selected) Prescriptions Prescribed Handicap Placard: Handicap Placard, See Instructions, 1 EA, 0, Expires 08/2028, Supply Metoprolol tartrate 25 mg Tab: 25 mg = 1 tab(s), Oral, BID, # 180 tab(s), Refills(s) 3, Pharmacy: [facility], 168, cm, 05/27/23 11:56:00 EDT, Height/Length Dosing, 108.6, kg, 05/27/23 11:56:00 EDT, Weight Dosing San Juan 325 mg-5 mg oral tablet: 1 tab(s), Oral, q6hr for pain for 3 day(s), 12 tab(s), Refill(s) 0, [facility]/pharmacy #[id number], 167.6, cm, 11/20/23 13:19:00 EDT, Height/Length Dosing, 107.4, kg, 11/20/23 13:19:00 EDT, Weight Dosing PTTD ankle brace: PTTD ankle brace, See Instructions, 1 EA, 0, one brace, Supply, 168, cm, 04/02/2409:30:00 EST, Height/Length Dosing, 108.6, kg, 04/02/23 10:30:00 EST, Weight Dosing atorvastatin 40 mg Tab: 40 mg = 1 tab(s), Oral, Daily, # 90 tab(s), Refills(s) 3, Pharmacy: [facility], 168, cm, 05/27/23 11:56:00 EDT, Height/Length Dosing, 108.6, kg, 05/27/23 11:56:00 EDT, Weight Dosing gabapentin 300 mg Cap: 300 mg = 1 cap(s), Oral, Once a day (at bedtime), # 180 EA, Refills(s) 3, Pharmacy: [facility], 168, cm, 05/27/23 11:56:00 EDT, Height/Length Dosing, 108.6, kg, 05/27/23 11:56:00 EDT, Weight Dosing hydrochlorothiazide-lisinopril 25 mg-20 mg Tab: 2 tab(s), Oral, Daily, 180 tab(s), Refill(s) 3, [facility], 168, cm, 05/27/23 11:56:00 EDT, Height/Length Dosing, 108.6, kg, 05/27/23 11:56:00 EDT, Weight Dosing meloxicam 15 mg Tab: 15 mg = 1 tab(s), Oral, Daily, # 90 tab(s), Refills(s) 3, Pharmacy: [facility], 168, cm, 05/27/23 11:56:00 EDT, Height/Length Dosing, 108.6, kg, 05/27/23 11:56:00 EDT, Weight Dosing traMADOL 50 mg Tab: 50 mg = 1 tab(s), Oral, Daily, PRN for pain, At bedtime, # 90 tab(s), Refills(s) 0, Pharmacy: [facility]/pharmacy #[id number], 168, cm, 11/13/23 10:07:00 EDT, Height/Length Dosing, 107.4, kg, 11/13/23 10:07:00 EDT, Weight Dosing Documented Medications Documented Aleve: 220 mg, Oral, Once, Refills(s) 0 Super B Complex oral tablet: Refill(s) 0, Oral, 0 Refill(s) Vitamin D3 2000 intl units: 2,000 International_Unit, Oral, Daily, Refills(s) 0, Prophylaxis latanoprost ophthalmic: Eye-Both, Refill(s) 0 timolol Opth 0.5% Zeynep 15 mL: 1 drop(s), BID, Refill(s) 0 Problem list: All Problems Dorsalgia of lumbar region / SNOMED CT 978955999 / Confirmed Heart murmur / SNOMED CT 499237646 / Confirmed Essential hypertension / SNOMED CT 46188396 / Confirmed Hyperlipidemia / SNOMED CT 50346595 / Confirmed Osteoarthritis of shoulders, bilateral / SNOMED CT 3403573613 / Confirmed Bilateral primary osteoarthritis of knee / SNOMED CT 356687084 / Confirmed Edema of left lower extremity / SNOMED CT 9010432946 / Confirmed Morbid obesity / SNOMED CT 495592866 / Confirmed added per 11/12/2023 query response. Canceled: Hypertension / SNOMED CT 7212237814 Canceled: Obesity / SNOMED CT 0050182346 Objective Vital Signs 11/21/2023 10:08 EDT Peripheral Pulse Rate 59 bpm LOW Respiratory Rate 14 br/min Systolic Blood Pressure 109 mmHg Diastolic Blood Pressure 64 mmHg Mean Arterial Pressure, Cuff 79 mmHg 11/20/2023 13:12 EDT Temperature Oral 36.7 DegC Peripheral Pulse Rate 65 bpm Respiratory Rate 20 br/min Systolic Blood Pressure 171 mmHg HI Diastolic Blood Pressure 81 mmHg SpO2 97 % General: Alert and oriente (more content not included)...[facility]:Result Comment: Electronically Signed By: Maribel Hurtado PA-C\.michael\Date and Time Signed: 11/21/23 10:40 [id number] Hospital Discharge instructions Patient Education 11/20/2023 14:14:37 Osteoarthritis Osteoarthritis Osteoarthritis is a type of arthritis. It refers to joint pain or joint disease. Osteoarthritis affects tissue that covers the ends of bones in joints (cartilage). Cartilage acts as a cushion betweenthe bones and helps them move smoothly. Osteoarthritis occurs when cartilage in the joints gets worn down. Osteoarthritis is sometimes called wear and tear arthritis. Osteoarthritis is the most common form of arthritis. It often occurs in older people. It is a condition that gets worse over time. The joints most often affected by this condition are in the fingers,toes, hips, knees, and spine, including the neck and lower back. What are the causes? This condition is caused by the wearing down of cartilage that covers the ends of bones. What increases the risk? The following factors may make you more likely to develop this condition: Being age 50 or older. Obesity. Overuse of joints. Past injury of a joint. Past surgery on a joint. Family history of osteoarthritis. What are the signs or symptoms? The main symptoms of this condition are pain, swelling, and stiffness in the joint. Other symptoms may include: An enlarged joint. More pain and further damage caused by small pieces of bone or cartilage that break off and float inside of the joint. Small deposits of bone (osteophytes) that grow on the edges of the joint. A grating or scraping feeling inside the joint when you move it. Popping or creaking sounds when you move. Difficulty walking or exercising. An inability to green building energy engineer items, twist your hand, or control the movements of your hands and fingers. How is this diagnosed? This condition may be diagnosed based on: Your medical history. A physical exam. Your symptoms. X-rays of the affected joints. Blood tests to rule out other types of arthritis. How is this treated? There is no cure for this condition, but treatment can help control pain and improve joint function. Treatment may include a combination of therapies, such as: Pain relief techniques, such as: ?Applying heat and cold to the joint. ?Massage. ?A form of talk therapy called cognitive behavioral therapy (CBT). This therapy helps you set goalsand follow up on the changes that you make. Medicines for pain and inflammation. The medicines can be taken by mouth or applied to the skin. They include: ?NSAIDs, such as ibuprofen. ?Prescription medicines. ?Strong anti-inflammatory medicines (corticosteroids). ?Certain nutritional supplements. A prescribed exercise program. You may work with a physical therapist. Assistive devices, such as a brace, wrap, splint, specialized glove, or cane. A weight control plan. Surgery, such as: ?An osteotomy. This is done to reposition the bones and relieve pain or to remove loose pieces of bone and cartilage. ?Joint replacement surgery. You may need this surgery if you have advanced osteoarthritis. Follow these instructions at home: Activity Rest your affected joints as told by your health care provider. Exercise as told by your provider. The provider may recommend specific types of exercise, such as: ?Strengthening exercises. These are done to strengthen the muscles that support joints affected by arthritis. ?Aerobic activities. These are exercises, such as brisk walking or water aerobics, that increase your heart rate. ?Epxgk-wu-jjpxez activities. These help your joints move more easily. ?Balance and agility exercises. Managing pain, stiffness, and swelling If told, apply heat to the affected area as often as told by your provider. Use the heat source that your provider recommends, such as a moist heat pack or a heating pad. ?If you have a removable assistive device, remove it as told by your provider. ?Place a towel between your skin and the heat source. If your provider tells you to keep the assistive device on while you apply heat, place a towel between the assistive device and the heat source. ?Leave the heat on for 20 30 minutes. If told, put ice on the affected area. ?If you have a removable assistive device, remove it as told by your provider. ?Put ice in a plastic bag. ?Place a towel between your skin and the bag. If your provider tells you to keep the assistive device on during icing, place a towel between the assistive device and the bag. ?Leave the ice on for 20 minutes, 2 3 times a day. If your skin turns bright red, remove the ice or heat right away to prevent skin damage. The risk of damage is higher if you cannot feel pain, heat, or cold. Move your fingers or toes often to reduce stiffness and swelling. Raise (elevate) the affected area above the level of your heart while you are sitting or lying down. General instructions Take eirh-xuf-qhvzxtc and prescription medicines only as told by your provider. Maintain a healthy weight. Follow instructions from your provider for weight control. Do not use any products that contain nicotine or tobacco. These products include cigarettes, chewing tobacco, and vaping devices, such as e-cigarettes. If you need help quitting, ask your provider. Use assistive devices as told by your provider. Where to find more information [employer] [place] of Arthritis and Musculoskeletal and Skin Diseases: niams.nih.gov National [place] on Aging: martha.nih.gov [employer]: rheumatology.org Contact a health care provider if: You have redness, swelling, or a feeling of warmth in a joint that gets worse. You have a fever along with joint or muscle aches. You develop a rash. You have trouble doing your normal activities. You have pain that gets worse and is not relieved by pain medicine. This information is not intended to replace advice given to you by your health care provider. Make sure you discuss any questions you have with your health care provider. Document Revised: 10/03/2022 Document Reviewed: 10/03/2022 [employer] Patient Education 2023 [employer]. Follow Up Care 11/20/2023 13:09:32 With:[facility] Address: [address] [place] [address]- [phone] Business (1) When:11/23/2023 13:55:04 With:Igor Link Address: [address] [place] [address]- Business (1) When:11/23/2023 13:54:54 [facility] 10-03-2024 NoteED Patient Education Note Orthopedics Osteoarthritis Osteoarthritis is a type of arthritis. It refers to joint pain or joint disease. Osteoarthritis affects tissue that covers the ends of bones in joints (cartilage). Cartilage acts as a cushion betweenthe bones and helps them move smoothly. Osteoarthritis occurs when cartilage in the joints gets worn down. Osteoarthritis is sometimes called wear and tear arthritis. Osteoarthritis is the most common form of arthritis. It often occurs in older people. It is a condition that gets worse over time. The joints most often affected by this condition are in the fingers,toes, hips, knees, and spine, including the neck and lower back. What are the causes? This condition is caused by the wearing down of cartilage that covers the ends of bones. What increases the risk? The following factors may make you more likely to develop this condition: ? Being age 50 or older. ? Obesity. ? Overuse of joints. ? Past injury of a joint. ? Past surgery on a joint. ? Family history of osteoarthritis. What are the signs or symptoms? The main symptoms of this condition are pain, swelling, and stiffness in the joint. Other symptoms may include: ? An enlarged joint. ? More pain and further damage caused by small pieces of bone or cartilage that break off and floatinside of the joint. ? Small deposits of bone (osteophytes) that grow on the edges of the joint. ? A grating or scraping feeling inside the joint when you move it. ? Popping or creaking sounds when you move. ? Difficulty walking or exercising. ? An inability to green building energy engineer items, twist your hand, or control the movements of your hands and fingers. How is this diagnosed? This condition may be diagnosed based on: ? Your medical history. ? A physical exam. ? Your symptoms. ? X-rays of the affected joints. ? Blood tests to rule out other types of arthritis. How is this treated? There is no cure for this condition, but treatment can help control pain and improve joint function. Treatment may include a combination of therapies, such as: ? Pain relief techniques, such as: ? Applying heat and cold to the joint. ? Massage. ? A form of talk therapy called cognitive behavioral therapy (CBT). This therapy helps you set goals and follow up on the changes that you make. ? Medicines for pain and inflammation. The medicines can be taken by mouth or applied to the skin. They include: ? NSAIDs, such as ibuprofen. ? Prescription medicines. ? Strong anti-inflammatory medicines (corticosteroids). ? Certain nutritional supplements. ? A prescribed exercise program. You may work with a physical therapist. ? Assistive devices, such as a brace, wrap, splint, specialized glove, or cane. ? A weight control plan. ? Surgery, such as: ? An osteotomy. This is done to reposition the bones and relieve pain or to remove loose pieces of bone and cartilage. ? Joint replacement surgery. You may need this surgery if you have advanced osteoarthritis. Follow these instructions at home: Activity ? Rest your affected joints as told by your health care provider. ? Exercise as told by your provider. The provider may recommend specific types of exercise, such as: ? Strengthening exercises. These are done to strengthen the muscles that support joints affected byarthritis. ? Aerobic activities. These are exercises, such as brisk walking or water aerobics, that increase your heart rate. ? Losvi-de-rkuepl activities. These help your joints move more easily. ? Balance and agility exercises. Managing pain, stiffness, and swelling ? If told, apply heat to the affected area as often as told by your provider. Use the heat source that your provider recommends, such as a moist heat pack or a heating pad. ? If you have a removable assistive device, remove it as told by your provider. ? Place a towel between your skin and the heat source. If your provider tells you to keep the assistive device on while you apply heat, place a towel between the assistive device and the heat source. ? Leave the heat on for 20?30 minutes. ? If told, put ice on the affected area. ? If you have a removable assistive device, remove it as told by your provider. ? Put ice in a plastic bag. ? Place a towel between your skin and the bag. If your provider tells you to keep the assistive device on during icing, place a towel between the assistive device and the bag. ? Leave the ice on for 20 minutes, 2?3 times a day. ? If your skin turns bright red, remove the ice or heat right away to prevent skin damage. The riskof damage is higher if you cannot feel pain, heat, or cold. ? Move your fingers or toes often to reduce stiffness and swelling. ? Raise (elevate) the affected area above the level of your heart while you are sitting or lying down. General instructions ? Take (more content not included)...[facility] History of Present illness Narrative* Danilo Richard NP - 11/18/2023 10:15 AM EDT Images from the original note were not included. Chief Complaint Patient presents with Left Knee - Follow-up HISTORY OF PRESENT ILLNESS: Jesika Cortez is an 72 y.o. @ female. 4 weeks s/p LT knee depo inj 10/20 - only about 3 weeks of relief. LT knee pain. Pain for a while, getting worse. Some days worse than others. LT>RT Has been getting sharp pains medial, almost falls. Pain can be diffuse. Taking gabapentin, meloxicam and tramadol. Using voltaren prn. Denies N/T. Stiffness. Unsure of swelling in knee. Wears compression socks prn. Does not wake at HS. 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 ALLERGIES: Allergies Allergen Reactions Corticosteroids Other Reaction(s): eye dr advised against HOME MEDICATIONS: Current Outpatient Medications Medication Instructions atorvastatin (LIPITOR) 40 mg, Oral, Daily Cholecalciferol (D3 ADULT PO) Oral gabapentin (NEURONTIN) 300 mg, Oral latanoprost (Xalatan) 0.005 % ophthalmic solution Every 24 hours lisinopril-hydroCHLOROthiazide 20-12.5 MG tablet 1 tablet, Oral, Daily meloxicam (MOBIC) 15 mg, Oral metoprolol tartrate (LOPRESSOR) 25 mg, Oral, Once naproxen (Naprosyn) 500 MG tablet timolol (Timoptic) 0.5 % ophthalmic solution Every 24 hours traMADol (Ultram) 50 MG tablet Oral PHYSICAL EXAM: Right Knee Exam Tenderness The patient is experiencing tenderness in the medial joint line and lateral joint line. Range of Motion Extension: -5 Flexion: 110 Tests Varus: negative Valgus: negative Other Erythema: absent Pulse: present Swelling: mild Left Knee Exam Tenderness The patient is experiencing tenderness in the medial joint line and lateral joint line. Range of Motion Extension: -5 Flexion: 100 Tests Varus: negative Valgus: negative Other Erythema: absent Scars: absent Sensation: normal Pulse: present Swelling: mild Vitals: There is no height or weight on file to calculate BMI. IMAGING: XR knee 1 or 2 views left Imaging Result: 11/18/2023 Standing AP and lateral of left knee demonstrate bone on bone patellofemoral arthritis and osteophyte formation of both lateral femoral condyle and lateral tibial plateau. Less than 50% joint space preserved. Impression: Severe osteoarthritis of left knee. Danilo Richard LEARNING CENTER INSTRUCTOR-SUPPORT CLERK ASSESSMENT: ICD-10-CM 1. Primary osteoarthritis of left knee M17.12 2. Left knee pain, unspecified chronicity M25.562 XR knee 1 or 2 views left 3. Right knee pain, unspecified chronicity M25.561 4. Primary osteoarthritis of right knee M17.11 Procedures PLAN: I reviewed exam findings with the patient and discussed treatment options, answered questions. I recommend that patient see pain management for possible gel injections or genicular blocks for both knees as she states she is not ready for total knee replacements. She will follow up with our office as needed. Questions answered in laymen terms at the bedside. The diagnosis, home exercise plan and any ongoing restrictions/ recommendations reviewed. If unable to be reached in office, I recommend evaluation at nearest Emergency Room if any symptoms worsened or new symptoms develop for requiring urgent evaluation. Danilo Richard APRN-SUPPORT CLERK documented in this encounterNevada Regional Medical [id number] History of Present illness Narrative* Danilo Richard NP - 10/21/2023 9:30 AM EDTAssociated Order(s): L Inj/Asp: L knee Post-Procedure Diagnose(s): Primary osteoarthritis of left knee Images from the original note were not included. 4 Chief Complaint Patient presents with Left Knee - Pain HISTORY OF PRESENT ILLNESS: Jesika Cortez is an 72 y.o. @ female. Here for knee injection. Danilo talked to patient's eye doctor and received a verbal approval for injection. LT knee pain. Pain for a while, getting worse. Some days worse than others. Pain lateral knee. Taking gabapentin, meloxicam and tramadol. Denies N/T, swelling. Denies popping/grinding. Denies catching. Admits stiffness. Difficulty with stairs. Does not wake at HS. 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 ALLERGIES: Allergies Allergen Reactions Corticosteroids Other Reaction(s): eye dr advised against HOME MEDICATIONS: Current Outpatient Medications Medication Instructions atorvastatin (LIPITOR) 40 mg, Oral, Daily Cholecalciferol (D3 ADULT PO) Oral cyanocobalamin (VITAMIN B-12) 100 mcg, Oral, Daily dorzolamide-timolol (Cosopt) 22.3-6.8 MG/ML ophthalmic solution 1 drop, Both Eyes, 2 times daily gabapentin (NEURONTIN) 300 mg, Oral latanoprost (Xalatan) 0.005 % ophthalmic solution Every 24 hours lisinopril-hydroCHLOROthiazide 20-12.5 MG tablet 1 tablet, Oral, Daily meloxicam (MOBIC) 15 mg, Oral metoprolol tartrate (LOPRESSOR) 25 mg, Oral, Once naproxen (Naprosyn) 500 MG tablet timolol (Timoptic) 0.5 % ophthalmic solution Every 24 hours traMADol (Ultram) 50 MG tablet Oral PHYSICAL EXAM: Left Knee Exam Tenderness The patient is experiencing tenderness in the medial joint line and lateral joint line. Range of Motion Extension: -5 Flexion: 100 Tests Varus: negative Valgus: negative Other Erythema: absent Scars: absent Sensation: normal Pulse: present Swelling: mild Vitals: There is no height or weight on file to calculate BMI. IMAGING: ASSESSMENT: ICD-10-CM 1. Primary osteoarthritis of left knee M17.12 2. Left knee pain, unspecified chronicity M25.562 L Inj/Asp: L knee on 10/21/2023 9:47 AM Indications: pain Details: anterolateral approach Medications: 40 mg methylPREDNISolone acetate 40 MG/ML Site was cleaned with isopropyl alcohol Consent was given by the patient. PLAN: I reviewed exam findings with the patient and discussed treatment options, answered questions. I discussed with the patient the option of an injection as she had good relief with right knee injection. I advised the patient of risks associated with an injection including a reaction to medication, infection, failure to improve and possible worsening. The patient demonstrated understanding. Patient requesting injection. Skin Cleansed with alcohol swab. Utilizing aseptic technique patient given 40mg Depomedrol was injected into left knee. Patient tolerated this well. Neurovasc intact s/p injection. Post injection care instructions discussed. Shew will call in 2 weeks if still painful. Consider repeat injection if still painful. Questions answered in laymen terms at the bedside. The diagnosis, home exercise plan and any ongoing restrictions/ recommendations reviewed. If unable to be reached in office, I recommend evaluation at nearest Emergency Room if any symptoms worsened or new symptoms develop for requiring urgent evaluation. Danilo Richard LEARNING CENTER INSTRUCTOR-SUPPORT CLERK documented in this encounterNevada Regional Medical [id number] History of Present illness Narrative* Danilo Richard NP - 10/14/2023 10:15 AM EDTAssociated Order(s): L Inj/Asp: R knee Post-Procedure Diagnose(s): Primary osteoarthritis of right knee Images from the original note were not included. NAME: Jesika Cortez : 1950 HISTORY OF PRESENT ILLNESS: Jesika Cortez is an 72 y.o. @ female. Here for knee injection. Danilo talked to patient's eye doctor and received a verbal approval for injection. B/L knee pain, RT>LT. Pain for a while, getting worse. Some days worse than others. Pain mostly lateral patella. Notes catching. Can be diffuse. Taking gabapentin, meloxicam and tramadol. Stiffness. Denies pain standing. Difficulty with stairs, has to keep leg straight. Has been doing stairs backwards. Unable to fully bend knee. Tried voltaren. 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 PAST MEDICAL HISTORY: Past Medical History: Diagnosis Date Arthritis unknown Drop foot gait Mar 03, 1998 Fallen arches Heart murmur Hypertension (CMS/HCC) unknown Lumbosacral disc disease Feb Plantar fasciitis PTTD (posterior tibial tendon dysfunction) Stage 3 PAST SURGICAL HISTORY: Past Surgical History: Procedure Laterality Date BACK SURGERY BREAST BIOPSY CATARACT EXTRACTION HYSTERECTOMY KNEE SURGERY Left SPINAL FUSION November 1998 ALLERGIES: Allergies Allergen Reactions Corticosteroids Other Reaction(s): eye dr advised against HOME MEDICATIONS: Current Outpatient Medications Medication Instructions atorvastatin (LIPITOR) 40 mg, Oral, Daily Cholecalciferol (D3 ADULT PO) Oral cyanocobalamin (VITAMIN B-12) 100 mcg, Oral, Daily dorzolamide-timolol (Cosopt) 22.3-6.8 MG/ML ophthalmic solution 1 drop, Both Eyes, 2 times daily gabapentin (NEURONTIN) 300 mg, Oral latanoprost (Xalatan) 0.005 % ophthalmic solution Every 24 hours lisinopril-hydroCHLOROthiazide 20-12.5 MG tablet 1 tablet, Oral, Daily meloxicam (MOBIC) 15 mg, Oral metoprolol tartrate (LOPRESSOR) 25 mg, Oral, Once naproxen (Naprosyn) 500 MG tablet timolol (Timoptic) 0.5 % ophthalmic solution Every 24 hours traMADol (Ultram) 50 MG tablet Oral Vitals: There is no height or weight on file to calculate BMI. PHYSICAL EXAM: Right Knee Exam Tenderness The patient is experiencing tenderness in the medial joint line and lateral joint line. Range of Motion Extension: 0 Flexion: 110 Tests Varus: negative Valgus: negative Other Erythema: absent Pulse: present Swelling: mild IMAGING: XR knee 1 or 2 views right Imaging Result: September 16, 2023 x-rays AP weight-bearing bilateral knees and lateral of the right knee demonstrate narrowing of the medial compartment of the right knee marked narrowing and marginal osteophyte of the left knee. There is some calcification along the at insertion of the medial collateral ligament consistent with a previous sprain. There is a small avulsion fracture of the superior pole of the patella Impression: Avulsion fracture superior pole of the patella, arthritic changes and evidence of previous MCL sprain Dk [place] Inj/Asp: R knee on 10/14/2023 12:54 PM Indications: pain Details: 21 G needle, anterolateral approach Medications: 40 mg methylPREDNISolone acetate 40 MG/ML Outcome: tolerated well, no immediate complications Site cleaned with isopropyl alcohol Procedure, treatment alternatives, risks and benefits explained, specific risks discussed. Consent was given by the patient. ASSESSMENT: ICD-10-CM 1. Primary osteoarthritis of right knee M17.11 2. Right knee pain, unspecified chronicity M25.561 PLAN: I reviewed xray and exam findings with the patient and discussed treatment options, answered questions. I discussed with the patient the option of an injection. I advised the patient of risks associated with an injection including a reaction to medication, infection, failure to improve and possibleworsening. The patient demonstrated understanding. Patient requesting injection. Skin Cleansed withalcohol swab. Utilizing aseptic technique patient given 40mg Depomedrol was injected. Patient tolerated this well. Neurovasc intact s/p injection. Post injection care instructions discussed. Follow up in 1-2 weeks for eval of left knee. Questions answered in laymen terms at the bedside. The diagnosis, home exercise plan and any ongoing restrictions/ recommendations reviewed. If unable to be reached in office, I recommend evaluation at nearest Emergency Room if any symptoms worsened or new symptoms develop for requiring urgent evaluation. Danilo Richard, LISE-SUPPORT CLERK documented in this encounterNevada Regional Medical [id number] Telephone encounter Note* Telephone Encounter - MARTI Coy - 10/03/2023 10:12 AM EDT Spoke to Danilo, he spoke to her eye doctor and she is cleared to get knee injections. We can see her Friday if she's available. [facility] [id number] Miscellaneous Notes* Telephone Encounter - MARTI Coy - 10/03/2023 10:12 AM EDT Spoke to Danilo, he spoke to her eye doctor and she is cleared to get knee injections. We can see her Friday if she's available. * Telephone Encounter - Raissa Stover - 10/01/2023 11:45 AM EDT Pt called and left vm stated she was seen on 09/16/23 for knees with Danilo and she was under the impression, he was going to call her eye doctor to see if she can get steroid injection in her knee, she has not heard anything yet regarding this. Her call back [phone] documented in this encounterNevada Regional Medical [id number] Telephone encounter Note* Telephone Encounter - Raissa Stover - 10/01/2023 11:45 AM EDT Pt called and left vm stated she was seen on 09/16/23 for knees with Danilo and she was under the impression, he was going to call her eye doctor to see if she can get steroid injection in her knee, she has not heard anything yet regarding this. Her call back [phone] [facility] CenterJhknbffbqy53-05-2527 Hospital Discharge instructions Follow Up Care 08/19/2023 11:46:01 With:Igor Ly DO, FAM Address: [address] [place], [place] [id number]- When:3 months Comments:3 MONTH FOLLOWUP - schedule with [facility] to follow [facility] [place] 05-15-2024 Hospital Discharge instructions Patient Education 07/02/2023 09:27:56 Edema Edema Edema is an abnormal buildup of fluids in the body tissues and under the skin. Swelling of the legs, feet, and ankles is a common symptom that becomes more likely as you get older. Swelling is also common in looser tissues, such as around the eyes. Pressing on the area may make a temporary dent in your skin (pitting edema). This fluid may also accumulate in your lungs (pulmonary edema). There are many possible causes of edema. Eating too much salt (sodium) and being on your feet or sitting for a long time can cause edema in your legs, feet, and ankles. Common causes of edema include: Certain medical conditions, such as heart failure, liver or kidney disease, and cancer. Weak leg blood vessels. An injury. . Medicines. Being obese. Low protein levels in the blood. Hot weather may make edema worse. Edema is usually painless. Your skin may look swollen or shiny. Follow these instructions at home: Medicines Take pugm-hzk-wwjqmwr and prescription medicines only as told by your health care provider. Your health care provider may prescribe a medicine to help your body get rid of extra water (diuretic). Take this medicine if you are told to take it. Eating and drinking Eat a low-salt (low-sodium) diet to reduce fluid as told by your health care provider. Sometimes, eating less salt may reduce swelling. Depending on the cause of your swelling, you may need to limit how much fluid you drink (fluid restriction). General instructions Raise (elevate) the injured area above the level of your heart while you are sitting or lying down. Do not sit still or stand for long periods of time. Do not wear tight clothing. Do not wear garters on your upper legs. Exercise your legs to get your circulation going. This helps to move the fluid back into your bloodvessels, and it may help the swelling go down. Wear compression stockings as told by your health care provider. These stockings help to prevent blood clots and reduce swelling in your legs. It is important that these are the correct size. These stockings should be prescribed by your health care provider to prevent possible injuries. If elastic bandages or wraps are recommended, use them as told by your health care provider. Contact a health care provider if: Your edema does not get better with treatment. You have heart, liver, or kidney disease and have symptoms of edema. You have sudden and unexplained weight gain. Get help right away if: You develop shortness of breath or chest pain. You cannot breathe when you lie down. You develop pain, redness, or warmth in the swollen areas. You have heart, liver, or kidney disease and suddenly get edema. You have a fever and your symptoms suddenly get worse. These symptoms may be an emergency. Get help right away. Call 911. Do not wait to see if the symptoms will go away. Do not drive yourself to the hospital. Summary Edema is an abnormal buildup of fluids in the body tissues and under the skin. Eating too much salt (sodium)and being on your feet or sitting for a long time can cause edema in your legs, feet, and ankles. Raise (elevate) the injured area above the level of your heart while you are sitting or lying down. Follow your health care provider's instructions about diet and how much fluid you can drink. This information is not intended to replace advice given to you by your health care provider. Make sure you discuss any questions you have with your health care provider. Document Revised: 10/08/2021 Document Reviewed: 10/08/2021 Else[employer] Patient Education 2022 [employer]. [facility] 04-09-2024 Hospital Discharge instructions Patient Education 05/27/2023 15:13:41 Osteoarthritis Osteoarthritis Osteoarthritis is a type of arthritis. It refers to joint pain or joint disease. Osteoarthritis affects tissue that covers the ends of bones in joints (cartilage). Cartilage acts as a cushion betweenthe bones and helps them move smoothly. Osteoarthritis occurs when cartilage in the joints gets worn down. Osteoarthritis is sometimes called wear and tear arthritis. Osteoarthritis is the most common form of arthritis. It often occurs in older people. It is a condition that gets worse over time. The joints most often affected by this condition are in the fingers,toes, hips, knees, and spine, including the neck and lower back. What are the causes? This condition is caused by the wearing down of cartilage that covers the ends of bones. What increases the risk? The following factors may make you more likely to develop this condition: Being age 50 or older. Obesity. Overuse of joints. Past injury of a joint. Past surgery on a joint. Family history of osteoarthritis. What are the signs or symptoms? The main symptoms of this condition are pain, swelling, and stiffness in the joint. Other symptoms may include: An enlarged joint. More pain and further damage caused by small pieces of bone or cartilage that break off and float inside of the joint. Small deposits of bone (osteophytes) that grow on the edges of the joint. A grating or scraping feeling inside the joint when you move it. Popping or creaking sounds when you move. Difficulty walking or exercising. An inability to green building energy engineer items, twist your hand(s), or control the movements of your hands and fingers. How is this diagnosed? This condition may be diagnosed based on: Your medical history. A physical exam. Your symptoms. X-rays of the affected joint(s). Blood tests to rule out other types of arthritis. How is this treated? There is no cure for this condition, but treatment can help control pain and improve joint function. Treatment may include a combination of therapies, such as: Pain relief techniques, such as: ?Applying heat and cold to the joint. ?Massage. ?A form of talk therapy called cognitive behavioral therapy (CBT). This therapy helps you set goalsand follow up on the changes that you make. Medicines for pain and inflammation. The medicines can be taken by mouth or applied to the skin. They include: ?NSAIDs, such as ibuprofen. ?Prescription medicines. ?Strong anti-inflammatory medicines (corticosteroids). ?Certain nutritional supplements. A prescribed exercise program. You may work with a physical therapist. Assistive devices, such as a brace, wrap, splint, specialized glove, or cane. A weight control plan. Surgery, such as: ?An osteotomy. This is done to reposition the bones and relieve pain or to remove loose pieces of bone and cartilage. ?Joint replacement surgery. You may need this surgery if you have advanced osteoarthritis. Follow these instructions at home: Activity Rest your affected joints as told by your health care provider. Exercise as told by your health care provider. He or she may recommend specific types of exercise, such as: ?Strengthening exercises. These are done to strengthen the muscles that support joints affected by arthritis. ?Aerobic activities. These are exercises, such as brisk walking or water aerobics, that increase your heart rate. ?Mdlqp-cl-wvztmg activities. These help your joints move more easily. ?Balance and agility exercises. Managing pain, stiffness, and swelling If directed, apply heat to the affected area as often as told by your health care provider. Use theheat source that your health care provider recommends, such as a moist heat pack or a heating pad. ?If you have a removable assistive device, remove it as told by your health care provider. ?Place a towel between your skin and the heat source. If your health care provider tells you to keep the assistive device on while you apply heat, place a towel between the assistive device and the heat source. ?Leave the heat on for 20 30 minutes. ?Remove the heat if your skin turns bright red. This is especially important if you are unable to feel pain, heat, or cold. You may have a greater risk of getting burned. If directed, put ice on the affected area. To do this: ?If you have a removable assistive device, remove it as told by your health care provider. ?Put ice in a plastic bag. ?Place a towel between your skin and the bag. If your health care provider tells you to keep the assistive device on during icing, place a towel between the assistive device and the bag. ?Leave the ice on for 20 minutes, 2 3 times a day. ?Move your fingers or toes often to reduce stiffness and swelling. ?Raise (elevate) the injured area above the level of your heart while you are sitting or lying down. General instructions Take xyck-een-cshtqwh and prescription medicines only as told by your health care provider. Maintain a healthy weight. Follow instructions from your health care provider for weight control. Do not use any products that contain nicotine or tobacco, such as cigarettes, e- cigarettes, and chewing tobacco. If you need help quitting, ask your health care provider. Use assistive devices as told by your health care provider. Keep all follow-up visits as told by your health care provider. This is important. Where to find more information [employer] [place] of Arthritis and Musculoskeletal and Skin Diseases: www.niams.nih.gov [employer] [place] on Aging: www.martha.nih.gov [employer]: www.rheumatology.org Contact a health care provider if: You have redness, swelling, or a feeling of warmth in a joint that gets worse. You have a fever along with joint or muscle aches. You develop a rash. You have trouble doing your normal activities. Get help right away if: You have pain that gets worse and is not relieved by pain medicine. Summary Osteoarthritis is a type of arthritis that affects tissue covering the ends of bones in joints (cartilage). This condition is caused by the wearing down of cartilage that covers the ends of bones. The main symptom of this condition is pain, swelling, and stiffness in the joint. There is no cure for this condition, but treatment can help control pain and improve joint function. This information is not intended to replace advice given to you by your health care provider. Make sure you discuss any questions you have with your health care provider. Document Revised: 01/31/2020 Document Reviewed: 01/31/2020 [employer] Patient Education 2022 [employer]. Follow Up Care 05/27/2023 08:46:03 With:Igor Ly DO, [facility] Address: [address] [place] [address]- When:3 months Comments:Controlled Medication Followup [facility] 04-09-2024 Hospital Discharge instructions Follow Up Care 05/27/2023 12:22:10 With:Igor Ly DO [facility] Address: [address] [place] [address]- When:3 months Comments:Controlled Medication Followup [facility] 03-25-2024 Hospital Discharge instructions Patient Education 05/12/2023 08:57:41 Chronic Back Pain, Bobw-io-Apzk Chronic Back Pain When back pain lasts longer than 3 months, it is called chronic back pain. Pain may get worse at certain times (flare-ups). There are things you can do at home to manage your pain. Follow these instructions at home: Pay attention to any changes in your symptoms. Take these actions to help with your pain: Managing pain and stiffness If told, put ice on the painful area. Your doctor may tell you to use ice for 24 48 hours after theflare-up starts. To do this: ?Put ice in a plastic bag. ?Place a towel between your skin and the bag. ?Leave the ice on for 20 minutes, 2 3 times a day. If told, put heat on the painful area. Do this as often as told by your doctor. Use the heat sourcethat your doctor recommends, such as a moist heat pack or a heating pad. ?Place a towel between your skin and the heat source. ?Leave the heat on for 20 30 minutes. ?Take off the heat if your skin turns bright red. This is especially important if you are unable tofeel pain, heat, or cold. You may have a greater risk of getting burned. Soak in a warm bath. This can help relieve pain. Activity Avoid bending and other activities that make pain worse. When standing: ?Keep your upper back and neck straight. ?Keep your shoulders pulled back. ?Avoid slouching. When sitting: ?Keep your back straight. ?Relax your shoulders. Do not round your shoulders or pull them backward. Do not sit or engineering supervisor one place for long periods of time. Take short rest breaks during the day. Lying down or standing is usually better than sitting. Resting can help relieve pain. When sitting or lying down for a long time, do some mild activity or stretching. This will help to prevent stiffness and pain. Get regular exercise. Ask your doctor what activities are safe for you. Do not lift anything that is heavier than 10 lb (4.5 kg) or the limit that you are told, until yourdoctor says that it is safe. To prevent injury when you lift things: ?Bend your knees. ?Keep the weight close to your body. ?Avoid twisting. Sleep on a firm mattress. Try lying on your side with your knees slightly bent. If you lie on your back, put a pillow under your knees. Medicines Treatment may include medicines for pain and swelling taken by mouth or put on the skin, prescription pain medicine, or muscle relaxants. Take xxik-rhn-xczctow and prescription medicines only as told by your doctor. Ask your doctor if the medicine prescribed to you: ?Requires you to avoid driving or using machinery. ?Can cause trouble pooping (constipation). You may need to take these actions to prevent or treat trouble pooping: ?Drink enough fluid to keep your pee (urine) pale yellow. ?Take paao-jgs-utbhsrb or prescription medicines. ?Eat foods that are high in fiber. These include beans, whole grains, and fresh fruits and vegetables. ?Limit foods that are high in fat and sugars. These include fried or sweet foods. General instructions Do not use any products that contain nicotine or tobacco, such as cigarettes, e- cigarettes, and chewing tobacco. If you need help quitting, ask your doctor. Keep all follow-up visits as told by your doctor. This is important. Contact a doctor if: Your pain does not get better with rest or medicine. Your pain gets worse, or you have new pain. You have a high fever. You lose weight very quickly. You have trouble doing your normal activities. Get help right away if: One or both of your legs or feet feel weak. One or both of your legs or feet lose feeling (have numbness). You have trouble controlling when you poop (have a bowel movement) or pee (urinate). You have bad back pain and: ?You feel like you may vomit (nauseous), or you vomit. ?You have pain in your belly (abdomen). ?You have shortness of breath. ?You faint. Summary When back pain lasts longer than 3 months, it is called chronic back pain. Pain may get worse at certain times (flare-ups). Use ice and heat as told by your doctor. Your doctor may tell you to use ice after flare-ups. This information is not intended to replace advice given to you by your health care provider. Make sure you discuss any questions you have with your health care provider. Document Revised: 03/15/2020 Document Reviewed: 03/15/2020 [employer] Patient Education 2022 [employer]. Follow Up Care 05/09/2023 10:22:44 With:Link Igor BRAVOLIANNA Address: [address] [id number]- When:2 weeks Comments:2 WEEKS [facility] [place] 03-21-2024 Hospital Discharge instructions Patient Education 05/08/2023 14:31:30 Muscle Strain, Ckbw-[id number] Muscle Strain A muscle strain, or pulled muscle, happens when a muscle is stretched beyond its normal length. This can tear some muscle fibers and cause pain. Usually, it takes 1 2 weeks to heal from a muscle strain. Full healing normally takes 5 6 weeks. What are the causes? This condition is caused when a sudden force is placed on a muscle and stretches it too far. This can happen with a fall, while lifting, or during sports. What increases the risk? You are more likely to develop a muscle strain if you are an athlete or you do a lot of physical activity. What are the signs or symptoms? Pain. Tenderness. Bruising. Swelling. Trouble using the muscle. How is this treated? This condition is first treated with CODY therapy. This involves: Protecting your muscle from being injured again. Resting your injured muscle. Icing your injured muscle. Putting pressure (compression) on your injured muscle. This may be done with a splint or elastic bandage. Raising (elevating) your injured muscle. Your doctor may also recommend medicine for pain. Follow these instructions at home: If you have a splint that can be taken off: Wear the splint as told by your doctor. Take it off only as told by your doctor. Check the skin around the splint every day. Tell your doctor if you see problems. Loosen the splint if your fingers or toes: ?Tingle. ?Become numb. ?Turn cold and blue. Keep the splint clean. If the splint is not waterproof: ?Do not let it get wet. ?Cover it with a watertight covering when you take a bath or a shower. Managing pain, stiffness, and swelling If told, put ice on your injured area. To do this: ?If you have a removable splint, take it off as told by your doctor. ?Put ice in a plastic bag. ?Place a towel between your skin and the bag. ?Leave the ice on for 20 minutes, 2 3 times a day. ?Take off the ice if your skin turns bright red. This is very important. If you cannot feel pain, heat, or cold, you have a greater risk of damage to the area. Move your fingers or toes often. Raise the injured area above the level of your heart while you are sitting or lying down. Wear an elastic bandage as told by your doctor. Make sure it is not too tight. General instructions Take ayoe-wrm-pkjkosj and prescription medicines only as told by your doctor. This may include: ?Medicines for pain and swelling that are taken by mouth or put on the skin. ?Medicines to help relax your muscles. Limit your activity. Rest your injured muscle as told by your doctor. Your doctor may say that gentle movements are okay. If physical therapy was prescribed, do exercises as told by your doctor. Do not put pressure on any part of the splint until it is fully hardened. This may take many hours. Do not smoke or use any products that contain nicotine or tobacco. If you need help quitting, ask your doctor. Ask your doctor when it is safe to drive if you have a splint. Keep all follow-up visits. How is this prevented? Warm up before you exercise. This helps to prevent more muscle strains. Contact a doctor if: You have more pain or swelling in the injured area. Get help right away if: You have any of these problems in your injured area: ?Numbness. ?Tingling. ?Less strength than normal. Summary A muscle strain is an injury that happens when a muscle is stretched beyond normal length. This condition is first treated with CODY therapy. This includes protecting, resting, icing, adding pressure, and raising your injury. Limit your activity. Rest your injured muscle as told by your doctor. Your doctor may say that gentle movements are okay. Warm up before you exercise. This helps to prevent more muscle strains. This information is not intended to replace advice given to you by your health care provider. Make sure you discuss any questions you have with your health care provider. Document Revised: 04/23/2021 Document Reviewed: 04/23/2021 [employer] Patient Education 2022 [employer]. Follow Up Care 05/08/2023 13:28:48 With:Pain Clinic: [facility] [phone] Address:Unknown When:05/11/2023 With:Igor Ly DO, FAM Address: [address] When:05/11/2023 [facility]03-21-2024 Evaluation + Plan noteExtracted from: Title:ED Note Author:Barb Santana PA-C Date :05/08/23 1. Lumbar strain (S39.012A: Strain of muscle, fascia and tendon of lower back, initial encounter) Ordered: tramadol, 50 mg = 1 tab(s), Oral, q6hr, X 3 day(s), # 12 tab(s), Refills(s) 0, Pharmacy: [facility]/pharmacy #[id number], 168, cm, 05/08/23 13:35:00 EDT, Height/Length Dosing, 108.6, kg, 05/08/23 13:35:00 EDT, Weight Dosing Orders: ketorolac, 15 mg = 1 mL, Injection, IntraMuscular, Once, Stop date 05/08/23 14:31:00 EDT, STAT, Start date 05/08/23 14:31:00 EDT, 05/08/23 14:31:00 EDT lidocaine topical, 1 patch(es), Patch, TransDermal, Once, Stop date 05/08/23 14:31:00 EDT, STAT, Start date 05/08/23 14:31:[address] [facility]03-18-2024 Evaluation + Plan noteExtracted from: Title:Pain Managment Follow up Author:Maribel Ventura Date:05/05/23 Impression and Plan Patient is a 72-year-old female with a past medical history significant for postlaminectomy syndrome and sacroiliitis. In regards to her radicular symptoms it got better with the gabapentin. She tolerates the gabapentin fairly well but does not want to increase it as she does notice some slight swelling in her ankles but states it is manageable right now. It is not helping her left-sided buttock pain now and she is here today to get something different to help her left-sided buttock pain. She states it is a stabbing type discomfort. Worse with certain activities. On physical examination it appears to be related to her sacroiliac joint. I recommended to patient a left-sided sacroiliac joint injection under fluoroscopy for diagnostic purposes. We did have long discussion about the steroids that would be used. She would need to follow-up with her eye doctor about this and she is aware of this. She would like to get the ball rolling to do this if needed but she wonders what she can take today to try to get relief. We discussed trialing a muscle relaxer. Baclofen sent to her pharmacy. She will get a pelvis x-ray to assess her anatomy and she will follow-up 2 weeks after the injection for reevaluation. OARRS reviewed KILEY score: 51% [facility]02-14-2024 Evaluation + Plan noteExtracted from: Title:Chronic pain Author:Blayne Mackenzie DO. Date:04/02/23 Patient is presenting with c omplaints of diffuse multifocal pain throughout her entire body predominantly in her back buttock and right lateral thigh at the level of the knee. She rates her pain as a 2/10 at present but it can be an 8/10 when it is flared up. She does have a history of lumbar fusion at L4-5 and likely has postlaminectomy pain syndrome as she has had persistent pain after surgery. She would like to discuss possibility of receiving tramadol as she has received this very infrequently from her orthopedic surgeon in the past. We did discuss that tramadol may not be the best medication for long-term medication management especially if she has concerns about elevated intraocular pressure. We discussed that she has multifocal pain and medications may be the best place to start as an isolated area is not significantly worse to her at this time. She is concerned about when her pain flares and what she can do. We discussed performing an epidural steroid injection for her back and radicular symptoms. We discussed adding gabapentin to her medication regimen to see how this affects her pain. She has tried physical therapy in the past and palliative care coordinator without any significant lasting relief from these. She would like to know what else can be done and we discussed medications as well as bracing and potential steroid injections. KILEY Score: 34% PHQ-2: 0 Patient denies any symptoms of progressively worsening upper/lower extremity weakness, progressively worsening gait abnormality, new onset bowel/bladder incontinence/ urinary retention, or saddle anesthesia. No new or worsening symptoms of fever, chills, night sweats. 14 Point Review of systems negative unless otherwise noted. General: No acute distress. Patient appears well-nourished. HEENT: Head is normocephalic and external ears are normal in appearance. Cardiovascular: No signs of poor perfusion and no peripheral edema Pulmonary: Nonlabored breathing, symmetric chest movement. GI: Abdomen nondistended Integumentary: No lesions Musculoskeletal: Multiple tender spots throughout entire body. Neurologic: Alert, oriented x3. 5/5 strength grossly in the bilateral upper extremities. Sensation intact to light touch in the bilateral upper extremities. 5/5 strength grossly in the bilateral lower extremities. Sensation intact to light touch in the bilateral lower extremities. Special Testing: Negative Tim sign bilaterally, mild radicular symptoms with right-sided straight leg raise. Medial arch collapse on the left ankle. History, physical examination, and personal review of pertinent imaging results indicate a diagnosis of: -Myofascial pain, potentially fibromyalgia -Postlaminectomy pain syndrome and lumbar radiculopathy predominantly affecting the right side -Left-sided posterior tibial tendon insufficiency Plan: -We had lengthy discussion about medications, we discussed that starting gabapentin 100 mg titrate to goal dose of 300 mg at bedtime would be most reasonable neck step for her -We discussed her postlaminectomy pain syndrome and radicular symptoms on the right and we discussed performing caudal epidural steroid injection, she would like to defer at this time due to concern for steroids in the history of elevated intraocular pressure -She has a history of posterior tibial insufficiency on the left and would like a prescription for a brace which we provided -Will follow-up in 3 months or sooner if any issues arise Patient was counseled on the above diagnosis and treatment, all questions were answered and patient agrees to adhere to the plan above. Risk and benefits of appropriate procedures and medications were reviewed as well with patient, who voiced understanding and agreeance. Patient was counseled on appropriate use of opioids if prescribed or renewed today and naloxone was offered to patient if opioids were prescribed or maintained at this visit. Patient was counseled on smoking cessation and/or continuing to abstain from nicotine/tobacco products as appropriate based on history; as smoking/nicotine can contribute to increased pain overall and decreased wound healing. Patient counseled on maintaining a healthy BMI as part of the total treatment of their pain and to reduce stress/strain on joints. Patient invited to return or call with any questions or concerns that arise. [facility] App[facility]ments Appointment Date:08/19/2023 10:40:00 AM Scheduled Provider:Igor Ly DO Location:[facility] Appointment Type:[facility] Evaluation + Plan note Future Appointments Appointment Date:11/13/2023 10:00:00 AM Scheduled Provider:Igor Ly DO Location:[facility] Appointment Type:[facility] Evaluation + Plan note Future Appointments Appointment Date:02/09/2024 08:30:00 AM Scheduled Provider: Location:[facility] Appointment Type:FM Medicare Wellness Subsequent Appointment Date:02/09/2024 09:40:00 AM Scheduled Provider:Igor Ly DO Location:[facility] Appointment Type:[facility] Evaluation + Plan note Future Appointments Appointment Date:11/21/2023 10:00:00 AM Scheduled Provider:Maribel Hurtado PA-C [facility] Type:Pain Management - Follow Up (FT) Appointment Date:02/09/2024 08:30:00 AM Scheduled Provider: Location:[facility] Appointment Type: Medicare Wellness Subsequent Appointment Date:02/09/2024 09:40:00 AM Scheduled Provider:Igor Ly DO Location:[facility] Appointment Type:[facility] Evaluation + Plan note Future Appointments Appointment Date:12/08/2023 11:40:00 AM Scheduled Provider:Igor Ly DO Location:[facility] Appointment Type:FM Open Appointment Date:12/16/2023 02:30:00 PM Scheduled Provider: Location:[facility] Appointment Type:Surgery FT Appointment Date:12/19/2023 10:45:00 AM Scheduled Provider:Maribel Hurtado PA-C Location[facility] Appointment Type:Pain Management - Follow Up (FT) Appointment Date:02/09/2024 08:30:00 AM Scheduled Provider: Location:[facility] Appointment Type:FM Medicare Wellness Subsequent Appointment Date:02/09/2024 09:40:00 AM Scheduled Provider:Igor Ly DO Location:[facility] Appointment Type:[facility] Evaluation + Plan note Future Appointments Appointment Date:12/16/2023 02:30:00 PM Scheduled Provider: Location:[facility] Appointment Type:Surgery FT Appointment Date:12/19/2023 10:45:00 AM Scheduled Provider:Maribel Hurtado PA-C Location[facility] Appointment Type:Pain Management - Follow Up (FT) Appointment Date:01/13/2024 11:00:00 AM Scheduled Provider:Igor Ly DO Location:[facility] Appointment Type:FM Open Appointment Date:02/09/2024 08:30:00 AM Scheduled Provider: Location:[facility] Appointment Type:FM Medicare Wellness Subsequent Appointment Date:02/09/2024 09:40:00 AM Scheduled Provider:Igor Ly DO Location:[facility] Appointment Type:[facility] evaluation + Plan note Future Appointments Appointment Date:02/03/2024 01:00:00 PM Scheduled Provider: Location:[facility] Appointment Type:FM Medicare Wellness Subsequent Appointment Date:02/24/2024 08:00:00 AM Scheduled Provider:Blayne Mackenzie DO Location:.[facility] Appointment Type:Pain Management - Follow Up (FT) Appointment Date:03/02/2024 03:40:00 PM Scheduled Provider:Igor Ly DO Location:[facility] Appointment Type:FM Open [facility] [place] evaluation + Plan note Future Appointments Appointment Date:02/24/2024 08:00:00 AM Scheduled Provider:Blayne Mackenzie DO [facility] Appointment Type:Pain Management - Follow Up (FT) Appointment Date:03/02/2024 03:40:00 PM Scheduled Provider:Igor Ly DO Location:[facility] Appointment Type:FM Open Appointment Date:02/04/2025 01:00:00 PM Scheduled Provider: Location:[facility] Appointment Type:FM Medicare Wellness Subsequent Future Scheduled Tests Radiology* MA Mamm Screen w/CAD if perf and 3D [place] 02/03/24 [facility] evaluation noteNo assessment information available [facility] Work Phone: evaluation note* Diagnosis Primary osteoarthritis of left knee- Primary Left knee pain, unspecified chronicity Right knee pain, unspecified chronicity Primary osteoarthritis of right knee [facility] Diagnosis Primary osteoarthritis of right knee- Primary Right knee pain, unspecified chronicity [facility] Diagnosis Primary osteoarthritis of left knee- Primary Left knee pain, unspecified chronicity documented in this encounter [facility] Healthcare[facility]ospital course Narrative No data available for this section [facility] No data available for this section [facility] No data available for this section [facility] Chief Complaint and Reason for Visit Chief Complaint Screening Chief Complaint R01.1 Chief Complaint R01.1 screening z78.0 Chief Complaint screening z78.0 screening z78.0 Advance Directives No Advanced Directives Records Found Advance Directive Response Recorded Date/ Time Advance Directives No January 10:59am Advance Directive Response Recorded Date/ Time Advance Directives No January 11:59am Summary Purpose Family History No Family History Records FoundNo Family History Records Found No data available for this section No data available for this section No data available for this section No data available for this section No data available for this section No data available for this section No data available for this section No data available for this section No data available for this section No Family History Records Found No data available for this section No data available for this section No data available for this section No data available for this section No data available for this section No data available for this section No data available for this section No data available for this section No data available for this section No data available for this section No Family History Records Found Reason for Referral Specialty Diagnoses / Procedures Referred By Contac t Referred To Contact Orthopaedic Surgery Diagnoses Primary osteoarthritis of right knee Procedures L Inj/Asp: R knee Danilo Richard, [facility] [place] [address] Referral ID Status Reason Start Date Expiration Date V isits Requested Visits Authorized [id number] Authorized 10/14/2023 04/11/2024 1 1 Additional Source Comments Goals (unrecognized section and content) Goals may be documented in a n alternate sectionGoals may be documented in an alternate sectionGoals may be documented in an alternate sectionGoals may be documented in an alternate sectionGoals may be documented in an alternate section No data available for this section No data available for this section No data available for this section No data available for this section No data available for this section No data available for this section No data available for this section No data available for this section No data available for this section No data available for this section No data available for this section No data available for this section No data available for this section No data available for this section No data available for this section No data available for this section No data available for this section No data available for this section No data available for this section Care Teams (unrecognized sec tion and content) Team Status: Inactive Member Role Status Dates Services Family Health Primary Care Provider, Referrin g Provider Active Referral Self Attending Provider Active Team Status: Active Member Role Status Dates Services Family Health Primary Care Provider Active Team Status: Inactive Member Role Status Dates Services Family Health Primary Care Provider Active Hiral Crews , DO RES Referring Provider Active Michael Murrieta DO Attending Provider Active Team Status: Inactive Member Role Status Dates Services Family Health Primary Care Provider Active Rene Abdi , Attending Provider Active Hiral Crews , DO RES Referring Provider Active Outpatient Surgery Rn Relationship Specialty Start Date End Date Igor Ly MD [address] [facility] [address] [place] [id number] PCP - General Family Medicine 09/16/23 Outpatient Surgery Rn Relationship Specialty Start Date End Date Igor Ly MD [address] [facility] [place] [address] PCP - General Family Medicine 09/16/23 Outpatient Surgery Rn Relationship Specialty Start Date End Date Igor Ly MD [address] [facility] [place] [address] PCP - General Family Medicine 09/16/23 Outpatient Surgery Rn Relationship Specialty Start Date End Date Igor Ly MD [address] [facility] [place] [address] PCP - General Family Medicine 09/16/23 Outpatient Surgery Rn Relationship Specialty Start Date End Date Igor Ly MD [address] [facility] [place] [address] PCP - General Family Medicine 09/16/23 Outpatient Surgery Rn Relationship Specialty Start Date End Date Igor Ly MD [address] [facility] [place] [address] PCP - General Family Medicine 09/16/23 Outpatient Surgery Rn Relationship Specialty Start Date End Date Igor Ly MD [address] [facility] [place] [address] PCP - General Family Medicine 09/16/23 Outpatient Surgery Rn Relationship Specialty Start Date End Date Igor Ly MD [address] [facility] [place] [address] PCP - General Family Medicine 09/16/23 INFORMATION SOURCE (unrecogn ized section and content) DATE CREATED AUTHOR 10/04/2022 [facility] DATE CREATED AUTHOR AUTHOR'S ORGANIZ ATION 02/04/2023 [facility] DATE CREATED AUTHOR AUTHOR'S ORGANIZ ATION 11/23/2023 [facility] DATE CREATED AUTHOR AUTHOR'S ORGANIZ ATION 03/01/2024 [facility] Reason for Visit (unrecogniz ed section and content) Reason Comments Follow-up Reason Onset Date Comments pain management 12/25/2023 Reason Onset Date Comments eye doctor 10/01/2023 Reason Comments Pain FOR RECORDS PERTAINING TO PATIENTS WHO ARE OR HAVE BEEN ENROLLED IN A CHEMICAL DEPENDENCY/SUBSTANCEABUSE PROGRAM, SOME INFORMATION MAY BE OMITTED. This clinical summary was aggregated from multiple sources. Caution should be exercised in using it in the provision of clinical care. This summary normalizes information from multiple sources, and as a consequence, information in this document may materially change the coding, format and clinical context of patient data. In addition, data may be omitted in some cases. CLINICAL DECISIONS SHOULD BE BASED ON THE PRIMARY CLINICAL RECORDS. [employer] [facility]. provides no warranty or guarantee of the accuracy or completeness of information in this document.
== END 2024-03-01 14:32 | disposition home or self-care (01) ==
LOC: EC 14:31
PROVIDERS: Visit Provider Student in an Organized Health Care Education/Training Program
DX: M17.0 Bilateral primary osteoarthritis of knee (principal)
CPT/HCPCS: 73564